=== PATIENT | female | born 1995 | race Caucasian/White ===

== ENCOUNTER 2019-04-21 10:52 | Inpatient (IN) | payer BC ==
[2019-04-21] MEDS ORDERED: Ondansetron 4 MG/2 ML SDV IVPUSH PRN ×2 (11:22→12:31)
[2019-04-21] MEDS ORDERED: Sodium Chloride 0.9% 10 ML Syringe FLUSH PRN (11:22)
[2019-04-21] MEDS ORDERED: Nalbuphine 10 MG/ML Syringe IVPUSH PRN (11:22)
--- NOTE | 2019-04-21 11:24 | PCM.LDHP ---
L&D History of Present Illness - General Date of Service: 04/21/19 Admit Problem/Dx: Patient Status Order with Admit Dx/Problem 04/21/19 11:22 Patient Status [ADT] Routine Admission Diagnosis/Problem Admission Diagnosis/Problem Normal labor Source of Information: Patient History Limitations: Reports: No Limitations - History of Present Illness Introduction:: Patient is a 23 y/o at 38 5/7 wks who presents for labor / SROM. Thinks maybe started leaking around 0900 this AM. Contractions very intense. No other concerns - Related Data Allergies/Adverse Reactions: Allergies Allergy/AdvReac Type Severity Reaction Status Date / Time No Known Allergies Allergy Verified 04/02/19 16:37 Home Medications: Home Meds No122/Iron/Folic Acid [ Multi Tablet] 1 each PO DAILY 04/02/19 [History] Past Medical History Genitourinary History: Reports: Renal Calculus [employer]NER History: Reports: : 1 Para: 0 LMP (Approximate): - Past Surgical History Musculoskeletal Surgical History: Reports: Other (See Below) (knee surgery) Social & Family History - Tobacco Use Smoking Status *Q: Never Smoker - Alcohol Use Alcohol Use History: No - Recreational Drug Use Recreational Drug Use: No H&P Review of Systems - Review of Systems: Review Of Systems: See Below General: Reports: No Symptoms Pulmonary: Reports: No Symptoms Cardiovascular: Reports: No Symptoms Gastrointestinal: Reports: Abdominal Pain (contractions ) Genitourinary: Reports: No Symptoms Musculoskeletal: Reports: No Symptoms Psychiatric: Reports: No Symptoms Neurological: Reports: No Symptoms L&D Exam - Exam Exam: See Below - OB Specific Contraction Intensity: Moderate to Strong Movement: Active Heart Tones: Present Heart Tones per Min: 135 Heart Rate (FHR) Variability: Moderate (6-25 bmp) Presentation: Vertex - Murphy Score Murphy Score Cervix Position: Anterior Murphy Score Consistency: Soft Murphy Score Effacement: >80% Murphy Score Dilation: > 5 cm Murphy Score Infant's Station: -1 ,0 Muprhy Score Total: 12 - Exam General: Alert, Oriented, Cooperative Lungs: Clear to Auscultation, Normal Respiratory Effort Cardiovascular: Regular Rate, Regular Rhythm GI/Abdominal Exam: Soft, Non-Tender Genitourinary: Normal external exam Extremities: Normal Inspection Skin: Warm, Dry, Intact - Patient Data Result Diagrams: 04/21/19 11:37 - Problem List (1) 38 weeks gestation of SNOMED Code(s): 39553202 ICD Code: Z3A.38 - 38 WEEKS GESTATION OF Status: Acute Current Visit: Yes (2) Normal labor SNOMED Code(s): 80802818 ICD Code: O80 - ENCOUNTER FOR FULL-TERM UNCOMPLICATED DELIVERY; Z37.9 - OUTCOME OF DELIVERY, UNSPECIFIED Status: Acute Current Visit: Yes Problem List Initiated/Reviewed/Updated: Yes Orders Last 24hrs: Active Orders 24 hr Category Date Time Status Patient Status [ADT] Routine ADT 04/21/19 11:22 Ordered Activity as Tolerated [RC] PFP Care 04/21/19 11:22 Ordered Communication Order [RC] ASDIRECTED Care 04/21/19 11:22 Ordered Heart Tones [RC] ASDIRECTED Care 04/21/19 11:22 Ordered Non Stress Test [RC] PER UNIT ROUTINE Care 04/21/19 11:22 Ordered Notify Provider [RC] PFP Care 04/21/19 11:22 Ordered Notify Provider [RC] PRN Care 04/21/19 11:22 Ordered Peripheral IV Care [RC] . DIRECTED Care 04/21/19 11:22 Ordered Vital Signs [RC] PER UNIT ROUTINE Care 04/21/19 11:22 Ordered CBC W/O DIFF,HEMOGRAM [HEME] Stat Lab 04/21/19 11:22 Ordered RAPID PLASMA REAGIN,RPR [CHEM] Routine Lab 04/21/19 11:22 Ordered TYPE AND SCREEN [BBK] Stat Lab 04/21/19 11:22 Ordered Lactated Ringers [Ringers, Lactated] 1,000 ml Med 04/21/19 11:30 Ordered IV ASDIRECTED Nalbuphine [Nubain] Med 04/21/19 11:22 Ordered 10 mg IVPUSH Q2H PRN Ondansetron [Zofran] Med 04/21/19 11:22 Ordered 4 mg IVPUSH Q4H PRN Oxytocin/Lactated Ringers [Pitocin in LR 10 Units/1,000 Med 04/21/19 11:30 Ordered ML] 10 unit in 1,000 ml IV .CONTINUOUS Sodium Chloride 0.9% [Saline Flush] Med 04/21/19 11:22 Ordered 10 ml FLUSH ASDIRECTED PRN Electronic Heart Tones Ext w TOCO [WOMSER] Oth 04/21/19 11:22 Ordered Routine Electronic Heart Tones Internal [WOMSER] Per Unit Ot 04/21/19 11:22 Ordered Routine Peripheral IV Insertion Adult [OM.PC] Routine Oth 04/21/19 11:22 Ordered Resuscitation Status Routine Resus Stat 04/21/19 11:22 Ordered Assessment/Plan Comment:: * Labs to be done * GBS negative * Pain management per patient preference * Anticipate
[2019-04-21] MEDS ORDERED: Oxytocin/Lactated Ringers 10 UNIT/1,000 ML BAG IV SCH (11:30)
[2019-04-21] MEDS: Lactated Ringers 1,000 ML IV SCH ×3 (11:36→15:28)
[2019-04-21] MEDS ORDERED: Lidocaine 1.5% with EPINEPHrine 1:200,000 5 ML Amp ONE (12:00)
[2019-04-21] MEDS ORDERED: Bupivacaine 0.25% 10 ML SDV ONE (12:00)
[2019-04-21] MEDS ORDERED: fentaNYL/Bupivacaine/NS 2 MCG-0.125% 250 ML EPIDUR PRN (12:31)
[2019-04-21] MEDS ORDERED: ePHEDrine 50 MG/ML SDV IVPUSH PRN (12:31)
[2019-04-21] MEDS ORDERED: fentaNYL 100 MCG/2 ML SDV EPIDUR PRN (12:31)
[2019-04-21] MEDS ORDERED: diphenhydrAMINE 50 MG/ML SDV IVPUSH PRN (12:31)
--- NOTE | 2019-04-21 12:38 | PCM.PREANE ---
Preanesthetic Assessment - Procedure Proposed Procedure: CESAR - Anesthesia/Transfusion/Family Hx Anesthesia History: Prior Anesthesia Without Reaction Family History of Anesthesia Reaction: No Transfusion History: No Prior Transfusion(s) Intubation History: Unknown - Review of Systems General: No Symptoms (has nasal congestion/cold ) Cardiovascular: No Symptoms Gastrointestinal: No Symptoms Neurological: No Symptoms Other: Reports: None - Physical Assessment NPO Status Date: 04/21/19 NPO Status Time: 12:35 Vital Signs: Last Vital Signs Temp 36.6 C 04/21/19 11:22 Pulse 84 04/21/19 11:22 Resp 16 04/21/19 11:22 BP 124/93 H 04/21/19 11:22 Pulse Ox 100 04/21/19 11:22 Height: 1.73 m Weight: 100.924 kg ASA Class: 2 Mental Status: Alert & Oriented x3 Airway Class: Mallampati = 2 Dentition: Reports: Normal Dentition Thyro-Mental Finger Breadths: 3 Mouth Opening Finger Breadths: 4 ROM/Head Extension: Full Lungs: Clear to Auscultation, Normal Respiratory Effort Cardiovascular: Regular Rate, Regular Rhythm - Lab Values: Laboratory Last Values WBC 11.79 K/mm3 (3.98-10.04) H 04/21/19 11:37 RBC 4.68 M/mm3 (3.98-5.22) 04/21/19 11:37 Hgb 12.5 gm/dl (11.2-15.7) 04/21/19 11:37 Hct 37.8 % (34.1-44.9) 04/21/19 11:37 MCV 80.8 fl (79.4-94.8) 04/21/19 11:37 MCH 26.7 pg (25.6-32.2) 04/21/19 11:37 MCHC 33.1 g/dl (32.2-35.5) 04/21/19 11:37 RDW Std Deviation 41.4 fL (36.4-46.3) 04/21/19 11:37 Plt Count 271 K/mm3 (182-369) 04/21/19 11:37 MPV 11.3 fl (9.4-12.3) 04/21/19 11:37 - Allergies Allergies/Adverse Reactions: Allergies Allergy/AdvReac Type Severity Reaction Status Date / Time No Known Allergies Allergy Verified 04/02/19 16:37 - Blood Blood Available: No - Anesthesia Plan Pre-Op Medication Ordered: None - Acknowledgements Anesthesia Type Planned: Epidural Pt an Appropriate Candidate for the Planned Anesthesia: Yes Alternatives and Risks of Anesthesia Discussed w Pt/Guardian: Yes Pt/Guardian Understands and Agrees with Anesthesia Plan: Yes PreAnesthesia Questionnaire [employer] History: Reports: - SUBSTANCE USE Smoking Status *Q: Never Smoker Second Hand Smoke Exposure: No Recreational Drug Use History: No - HOME MEDS Home Medications: Home Meds No122/Iron/Folic Acid [ Multi Tablet] 1 each PO DAILY 04/02/19 [History] - CURRENT (IN HOUSE) MEDS Current Meds: Current Medications Diphenhydramine HCl (Benadryl) 25 mg IVPUSH Q6H PRN PRN Reason: pruritis Ephedrine Sulfate (Ephedrine Sulfate) 5 mg IVPUSH ASDIRECTED PRN PRN Reason: Hypotension Fentanyl (Sublimaze) 100 mcg EPIDUR Q3H PRN PRN Reason: Pain Fentanyl/Bupivacaine HCl (Fentanyl/Bupivacaine/Ns 2 Mcg-0.125% 250 Ml) ml EPIDUR CONTINUOUS PRN PRN Reason: Pain Lactated Ringer's (Ringers, Lactated) 1,000 mls @ 100 mls/hr IV ASDIRECTED SIMIN Last Admin: 04/21/19 11:36 Dose: 100 mls/hr Oxytocin/Lactated Ringer's (Pitocin In Lr 10 Units/1,000 Ml) 10 unit in 1,000 mls @ 500 mls/hr IV .CONTINUOUS SIMIN Nalbuphine HCl (Nubain) 10 mg IVPUSH Q2H PRN PRN Reason: Pain Ondansetron HCl (Zofran) 4 mg IVPUSH Q4H PRN PRN Reason: Nausea/Vomiting Ondansetron HCl (Zofran) 4 mg IVPUSH ONETIME PRN PRN Reason: Nausea/Vomiting Sodium Chloride (Saline Flush) 10 ml FLUSH ASDIRECTED PRN PRN Reason: Keep Vein Open
--- NOTE | 2019-04-21 13:51 | PCM.PNLD ---
Labor Progress Note - VS & Meds Vital Signs: Last Vital Signs Temp 36.6 C 04/21/19 11:22 Pulse 84 04/21/19 11:22 Resp 16 04/21/19 11:22 BP 124/93 H 04/21/19 11:22 Pulse Ox 100 04/21/19 11:22 Active Medications: Current Medications Diphenhydramine HCl (Benadryl) 25 mg IVPUSH Q6H PRN PRN Reason: pruritis Ephedrine Sulfate (Ephedrine Sulfate) 5 mg IVPUSH ASDIRECTED PRN PRN Reason: Hypotension Fentanyl (Sublimaze) 100 mcg EPIDUR Q3H PRN PRN Reason: Pain Fentanyl/Bupivacaine HCl (Fentanyl/Bupivacaine/Ns 2 Mcg-0.125% 250 Ml) 250 ml EPIDUR CONTINUOUS PRN PRN Reason: Pain Lactated Ringer's (Ringers, Lactated) 1,000 mls @ 100 mls/hr IV ASDIRECTED SIMIN Last Admin: 04/21/19 13:12 Dose: 999 mls/hr Oxytocin/Lactated Ringer's (Pitocin In Lr 10 Units/1,000 Ml) 10 unit in 1,000 mls @ 500 mls/hr IV .CONTINUOUS SIMIN Nalbuphine HCl (Nubain) 10 mg IVPUSH Q2H PRN PRN Reason: Pain Ondansetron HCl (Zofran) 4 mg IVPUSH Q4H PRN PRN Reason: Nausea/Vomiting Ondansetron HCl (Zofran) 4 mg IVPUSH ONETIME PRN PRN Reason: Nausea/Vomiting Sodium Chloride (Saline Flush) 10 ml FLUSH ASDIRECTED PRN PRN Reason: Keep Vein Open - Uterine Contractions Uterine Monitoring Mode: External [place] Contraction Intensity: Moderate to Strong - Monitoring Monitor Mode: External Ultrasound Heart Rate (FHR) Baseline: 125 Heart Rate (FHR) Variability: Moderate (6-25 bmp) Accelerations: Present, 15x15 Decelerations: None Strip Review: Category I - Vaginal Exam Dilation (cm): 5 Effacement (Percent): 100 Station: 0 Cervical Position: Anterior - Labor Progress (Free Text) Labor Progress: Patient now comfortable with epidural. Forebag felt on exam. AROM done of this with release of meconium stained fluid. Continue present management
[2019-04-21] MEDS ORDERED: Misoprostol 200 MCG Tab PO STA (19:02)
--- NOTE | 2019-04-21 19:02 | PCM.DEL ---
L & D Note - General Info Date of Service: 04/21/19 - Delivery Note Labor: Spontaneous Delivery Outcome: Livebirth Delivery Method: Spontaneous Vaginal Delivery-Single Delivery Mode: Spontaneous Presentation: Right Occiput Anterior ([place]IS) Nuchal Cord: None Anesthesia Type: Epidural Amniotic Fluid Description: Clear Episiotomy Type: None Laceration: 2nd Degree, Perineal Suture type: Vicryl Suture size: 2-0 Placenta: Intact, Spontaneous Cord: 3 Vessels Estimated Blood Loss: 400 Resuscitation Needed: Yes : Bulb Syringe, Stimulated, Warmed, [place] Used, Warmer Used Delivery Comments (Free Text/Narrative):: Patient found to be complete and began pushing. With maternal pushing effort head delivered from [place]IS presentation. No nuchal cord present. With gentle downward traction the shoulders and body delivered. placed on maternal abdomen. True knot noted in cord. Cord clamped and cut. Cord blood obtained. Placenta allowed time to separate and expelled intact. Poor JYOTSNA tone noted and patient given 600 mcg of buccal cytotec with good response. 2nd degree perineal laceration noted which was repaired with a 2-0 vicryl in the typical fashion - General Info Date of Service: 04/21/19 - Patient Data Vitals - Most Recent: Last Vital Signs Temp 36.6 C 04/21/19 11:22 Pulse 84 04/21/19 11:22 Resp 16 04/21/19 11:22 BP 124/93 H 04/21/19 11:22 Pulse Ox 100 04/21/19 11:22 Weight - Most Recent: 100.924 kg Lab Results Last 24 Hours: 23 y/o now PPD#0 from * Routine cares * Breast feeding * Discharge home in 2 days - Problem List & Annotations (1) 38 weeks gestation of SNOMED Code(s): 20752224 Code(s): Z3A.38 - 38 WEEKS GESTATION OF Status: Acute Current Visit: Yes (2) Normal labor SNOMED Code(s): 62323811 Code(s): O80 - ENCOUNTER FOR FULL-TERM UNCOMPLICATED DELIVERY; Z37.9 - OUTCOME OF DELIVERY, UNSPECIFIED Status: Acute Current Visit: Yes (3) Vaginal delivery SNOMED Code(s): 995369251 Code(s): O80 - ENCOUNTER FOR FULL-TERM UNCOMPLICATED DELIVERY Status: Acute Current Visit: Yes - Problem List Review Problem List Initiated/Reviewed/Updated: Yes - My Orders Last 24 Hours: My Active Orders 04/21/19 11:22 Patient Status [ADT] Routine Activity as Tolerated [RC] PFP Communication Order [RC] ASDIRECTED Heart Tones [RC] ASDIRECTED Non Stress Test [RC] PER UNIT ROUTINE Notify Provider [RC] PFP Notify Provider [RC] PRN Peripheral IV Care [RC] . DIRECTED Vital Signs [RC] PER UNIT ROUTINE Nalbuphine [Nubain] 10 mg IVPUSH Q2H PRN Ondansetron [Zofran] 4 mg IVPUSH Q4H PRN Sodium Chloride 0.9% [Saline Flush] 10 ml FLUSH ASDIRECTED PRN Electronic Heart Tones Ext w TOCO [WOMSER] Routine Electronic Heart Tones Internal [WOMSER] Per Unit Routine Peripheral IV Insertion Adult [OM.PC] Routine Resuscitation Status Routine 04/21/19 11:30 Lactated Ringers [Ringers, Lactated] 1,000 ml IV ASDIRECTED Oxytocin/Lactated Ringers [Pitocin in LR 10 Units/1,000 ML] 10 unit in 1,000 ml IV .CONTINUOUS 04/21/19 11:37 RAPID PLASMA REAGIN,RPR [CHEM] Routine 04/21/19 12:51 PATIENT RETYPE [BBK] Routine 04/21/19 19:02 miSOPROStoL [Cytotec] 600 mcg PO NOW STA 04/21/19 Lunch Regular Diet [DIET] - Plan Plan:: * Labs to be done * GBS negative * Pain management per patient preference * Anticipate
[2019-04-21] MEDS ORDERED: Ibuprofen 600 MG Tab PO PRN (19:26)
[2019-04-21] MEDS ORDERED: Docusate Sodium 100 MG Cap PO PRN (19:26)
[2019-04-21] MEDS ORDERED: Benzocaine/Menthol 20%-0.5% Spray 56 GM Canister TOP PRN (19:26)
[2019-04-21] MEDS ORDERED: Acetaminophen 325 MG Tab PO PRN (19:26)
[2019-04-21] MEDS: Witch Hazel Medicated Pads 40/Jar TOP PRN (20:28)
--- NOTE | 2019-04-22 08:51 | PCM.SN ---
- Free Text/Narrative Note: Afebrile, no heavy vaginal bleeding, uterus involuting normally, no leg cramping.
[2019-04-22] MEDS: Witch Hazel Medicated Pads 40/Jar TOP PRN (16:45)
--- NOTE | 2019-04-22 17:10 | PCM48HPAN ---
Post Anesthesia Note - EVALUATION WITHIN 48HRS OF ANESTHETIC Vital Signs in Normal Range: Yes Patient Participated in Evaluation: Yes Respiratory Function Stable: Yes Airway Patent: Yes Cardiovascular Function Stable: Yes Hydration Status Stable: Yes Pain Control Satisfactory: Yes (Mild lower back discomfort. Counseled to apply ice 20 minutes PRN) Nausea and Vomiting Control Satisfactory: Yes Mental Status Recovered: Yes Vital Signs: Last Vital Signs Temp 36.6 C 04/22/19 03:00 Pulse 84 04/22/19 09:00 Resp 16 04/22/19 09:00 BP 104/60 04/22/19 09:00 Pulse Ox 98 04/22/19 09:00 - COMMENTS/OBSERVATIONS Free Text/Narrative:: Mild lower back pain. Counseled to use ice 20 minutes on PRN and ibuprofen if tolerated. No concerns at this time.
--- NOTE | 2019-04-23 10:17 | PCM.DCSUM1 ---
Discharge Summary - Hospital Course Free Text/Narrative:: [facility] LIVE L/D Delivery Note Patient Name: GRACE VELASQUEZ Date of : 89 Patient Status: Inpatient Attending Provider: Kayley Ramos Date: 04/21/19 19:02 Initialization Date: 04/21/19 19:02 L & D Note - General Info Date of Service: 04/21/19 - Delivery Note Labor: Spontaneous Delivery Outcome: Livebirth Delivery Method: Spontaneous Vaginal Delivery-Single Delivery Mode: Spontaneous Presentation: Right Occiput Anterior (LOUIS) Nuchal Cord: None Anesthesia Type: Epidural Amniotic Fluid Description: Clear Episiotomy Type: None Laceration: 2nd Degree, Perineal Suture type: Vicryl Suture size: 2-0 Placenta: Intact, Spontaneous Cord: 3 Vessels Estimated Blood Loss: 400 Resuscitation Needed: Yes [place]: Bulb Syringe, Stimulated, Warmed, Nora Used, Warmer Used Delivery Comments (Free Text/Narrative):: Patient found to be complete and began pushing. With maternal pushing effort head delivered from LOUIS presentation. No nuchal cord present. With gentle downward traction the shoulders and body delivered. Infant placed on maternal abdomen. True knot noted in cord. Cord clamped and cut. Cord blood obtained. Placenta allowed time to separate and expelled intact. Poor JYOTSNA tone noted and patient given 600 mcg of buccal cytotec with good response. 2nd degree perineal laceration noted which was repaired with a 2-0 vicryl in the typical fashion - General Info Date of Service: 04/21/19 - Patient Data Vitals - Most Recent: Last Vital Signs Temp 36.6 C 04/21/19 11:22 Pulse 84 04/21/19 11:22 Resp 16 04/21/19 11:22 BP 124/93 H 04/21/19 11:22 Pulse Ox 100 04/21/19 11:22 Weight - Most Recent: 100.924 kg Lab Results Last 24 Hours: 23 y/o now PPD#0 from * Routine cares * Breast feeding * Discharge home in 2 days - Problem List & Annotations (1) 38 weeks gestation of SNOMED Code(s): 54340448 Code(s): Z3A.38 - 38 WEEKS GESTATION OF Status: Acute Current Visit: Yes (2) Normal labor SNOMED Code(s): 21064020 Code(s): O80 - ENCOUNTER FOR FULL-TERM UNCOMPLICATED DELIVERY; Z37.9 - OUTCOME OF DELIVERY, UNSPECIFIED Status: Acute Current Visit: Yes (3) Vaginal delivery SNOMED Code(s): 022132196 Code(s): O80 - ENCOUNTER FOR FULL-TERM UNCOMPLICATED DELIVERY Status: Acute Current Visit: Yes - Problem List Review Problem List Initiated/Reviewed/Updated: Yes - My Orders Last 24 Hours: My Active Orders 04/21/19 11:22 Patient Status [ADT] Routine Activity as Tolerated [RC] PFP Communication Order [RC] ASDIRECTED Heart Tones [RC] ASDIRECTED Non Stress Test [RC] PER UNIT ROUTINE Notify Provider [RC] PFP Notify Provider [RC] PRN Peripheral IV Care [RC] . DIRECTED Vital Signs [RC] PER UNIT ROUTINE Nalbuphine [Nubain] 10 mg IVPUSH Q2H PRN Ondansetron [Zofran] 4 mg IVPUSH Q4H PRN Sodium Chloride 0.9% [Saline Flush] 10 ml FLUSH ASDIRECTED PRN Electronic Heart Tones Ext w TOCO [WOMSER] Routine Electronic Heart Tones Internal [WOMSER] Per Unit Routine Peripheral IV Insertion Adult [OM.PC] Routine Resuscitation Status Routine 04/21/19 11:30 Lactated Ringers [Ringers, Lactated] 1,000 ml IV ASDIRECTED Oxytocin/Lactated Ringers [Pitocin in LR 10 Units/1,000 ML] 10 unit in 1,000 ml IV .CONTINUOUS 04/21/19 11:37 RAPID PLASMA REAGIN,RPR [CHEM] Routine 04/21/19 12:51 PATIENT RETYPE [BBK] Routine 04/21/19 19:02 miSOPROStoL [Cytotec] 600 mcg PO NOW STA 04/21/19 Lunch Regular Diet [DIET] - Plan Plan:: * Labs to be done * GBS negative * Pain management per patient preference * Anticipate HPI Initial Comments: [facility] LIVE L/D Delivery Note Patient Name: GRACE VELASQUEZ Date of : [birth year] Patient Status: Inpatient Attending Provider: Kayley Ramos Date: 04/21/19 19:02 Initialization Date: 04/21/19 19:02 L & D Note - General Info Date of Service: 04/21/19 - Delivery Note Labor: Spontaneous Delivery Outcome: Livebirth Infant Delivery Method: Spontaneous Vaginal Delivery-Single Infant Delivery Mode: Spontaneous Presentation: Right Occiput Anterior (LOUIS) Nuchal Cord: None Anesthesia Type: Epidural Amniotic Fluid Description: Clear Episiotomy Type: None Laceration: 2nd Degree, Perineal Suture type: Vicryl Suture size: 2-0 Placenta: Intact, Spontaneous Cord: 3 Vessels Estimated Blood Loss: 400 Resuscitation Needed: Yes : Bulb Syringe, Stimulated, Warmed, Nora Used, Warmer Used Delivery Comments (Free Text/Narrative):: Patient found to be complete and began pushing. With maternal pushing effort head delivered from LOUIS presentation. No nuchal cord present. With gentle downward traction the shoulders and body delivered. placed on maternal abdomen. True knot noted in cord. Cord clamped and cut. Cord blood obtained. Placenta allowed time to separate and expelled intact. Poor JYOTSNA tone noted and patient given 600 mcg of buccal cytotec with good response. 2nd degree perineal laceration noted which was repaired with a 2-0 vicryl in the typical fashion - General Info Date of Service: 04/21/19 - Patient Data Vitals - Most Recent: Last Vital Signs Temp 36.6 C 04/21/19 11:22 Pulse 84 04/21/19 11:22 Resp 16 04/21/19 11:22 BP 124/93 H 04/21/19 11:22 Pulse Ox 100 04/21/19 11:22 Weight - Most Recent: 100.924 kg Lab Results Last 24 Hours: 23 y/o now PPD#0 from * Routine cares * Breast feeding * Discharge home in 2 days - Problem List & Annotations (1) 38 weeks gestation of SNOMED Code(s): 65845645 Code(s): Z3A.38 - 38 WEEKS GESTATION OF Status: Acute Current Visit: Yes (2) Normal labor SNOMED Code(s): 95052972 Code(s): O80 - ENCOUNTER FOR FULL-TERM UNCOMPLICATED DELIVERY; Z37.9 - OUTCOME OF DELIVERY, UNSPECIFIED Status: Acute Current Visit: Yes (3) Vaginal delivery SNOMED Code(s): 301329779 Code(s): O80 - ENCOUNTER FOR FULL-TERM UNCOMPLICATED DELIVERY Status: Acute Current Visit: Yes - Problem List Review Problem List Initiated/Reviewed/Updated: Yes - My Orders Last 24 Hours: My Active Orders 04/21/19 11:22 Patient Status [ADT] Routine Activity as Tolerated [RC] PFP Communication Order [RC] ASDIRECTED Heart Tones [RC] ASDIRECTED Non Stress Test [RC] PER UNIT ROUTINE Notify Provider [RC] PFP Notify Provider [RC] PRN Peripheral IV Care [RC] . DIRECTED Vital Signs [RC] PER UNIT ROUTINE Nalbuphine [Nubain] 10 mg IVPUSH Q2H PRN Ondansetron [Zofran] 4 mg IVPUSH Q4H PRN Sodium Chloride 0.9% [Saline Flush] 10 ml FLUSH ASDIRECTED PRN Electronic Heart Tones Ext w TOCO [WOMSER] Routine Electronic Heart Tones Internal [WOMSER] Per Unit Routine Peripheral IV Insertion Adult [OM.PC] Routine Resuscitation Status Routine 04/21/19 11:30 Lactated Ringers [Ringers, Lactated] 1,000 ml IV ASDIRECTED Oxytocin/Lactated Ringers [Pitocin in LR 10 Units/1,000 ML] 10 unit in 1,000 ml IV .CONTINUOUS 04/21/19 11:37 RAPID PLASMA REAGIN,RPR [CHEM] Routine 04/21/19 12:51 PATIENT RETYPE [BBK] Routine 04/21/19 19:02 miSOPROStoL [Cytotec] 600 mcg PO NOW STA 04/21/19 Lunch Regular Diet [DIET] - Plan Plan:: * Labs to be done * GBS negative * Pain management per patient preference * Anticipate Brief History: [facility] LIVE . L/D Delivery Note. [facility]: [id number] Date of : Patient Status: Inpatient. Attending Provider: Kayley Ramosunt Number : [id number]. Date: 04/21/19 19:02Initialization Date: 04/21/19 19:02. L & D Note. - General Info. Date of Service: 04/21/19. - Delivery Note. Labor: Spontaneous. Delivery Outcome: Livebirth. Delivery Method: Spontaneous Vaginal Delivery-Single. Infant Delivery Mode: Spontaneous. Presentation : Right Occiput Anterior (LOUIS). Nuchal Cord: None. Anesthesia Type: Epidural. Amniotic Fluid Description: Clear. Episiotomy Type: None. Laceration: 2nd Degree, Perineal. Suture type: Vicryl. Suture size: 2-0. Placenta: Intact, Spontaneous. Cord: 3 Vessels. Estimated Blood Loss: 400. Resuscitation Needed : Yes. [place]: Bulb Syringe, Stimulated, Warmed, Nora Used, Warmer Used. Delivery Comments (Free Text/Narrative):: Patient found to be complete and began pushing. With maternal pushing effort head delivered from LOUIS presentation. No nuchal cord present. With gentle downward traction the shoulders and body delivered. placed on maternal abdomen. True knot noted in cord. Cord clamped and cut. Cord blood obtained. Placenta allowed time to separate and expelled intact. Poor JYOT[place]NA tone noted and patient given 600 mcg of buccal cytotec with good response. 2nd degree perineal laceration noted which was repaired with a 2-0 vicryl in the typical fashion. - General Info. Date of Service: 04/21/19. - Patient Data. Vitals - Most Recent: Last Vital Signs. Temp 36.6 C 04/21/19 11:22. Pulse 84 04/21/19 11:22. Resp 16 04/21/19 11:22. BP 124/93 H 04/21/19 11:22. Pulse Ox 100 04/21/19 11:22. Weight - Most Recent: 100.924 kg. Lab Results Last 24 Hours: 23 y/o now PPD#0 from . Routine cares. Breast feeding. Discharge home in 2 days. - Problem List & Annotations. (1) 38 weeks gestation of . SNOMED Code(s): 43242367. Code(s): Z3A.38 - 38 WEEKS GESTATION OF Status: Acute Current Visit: Yes. (2) Normal labor. SNOMED Code(s): 38108062. Code(s): O80 - ENCOUNTER FOR FULL-TERM UNCOMPLICATED DELIVERY; Z37.9 - OUTCOME OF DELIVERY, UNSPECIFIED Status: Acute Current Visit: Yes. (3) Vaginal delivery. SNOMED Code(s): 665237412. Code(s): O80 - ENCOUNTER FOR FULL -TERM UNCOMPLICATED DELIVERY Status: Acute Current Visit: Yes. - Problem List Review. Problem List Initiated/Reviewed/Updated: Yes. - My Orders. Last 24 Hours: My Active Orders. 04/21/19 11:22. Patient Status [ADT] Routine. Activity as Tolerated [RC] PFP. Communication Order [RC] ASDIRECTED. Heart Tones [RC] ASDIRECTED. Non Stress Test [RC] PER UNIT ROUTINE. Notify Provider [RC] PFP. Notify Provider [RC] PRN. Peripheral IV Care [RC] . DIRECTED. Vital Signs [RC] PER UNIT ROUTINE. Nalbuphine [Nubain] 10 mg IVPUSH Q2H PRN. Ondansetron [Zofran] 4 mg IVPUSH Q4H PRN. Sodium Chloride 0.9% [Saline Flush] 10 ml FLUSH ASDIRECTED PRN. Electronic Heart Tones Ext w TOCO [WOMSER] Routine. Electronic Heart Tones Internal [WOMSER] Per Unit Routine. Peripheral IV Insertion Adult [OM.PC] Routine. Resuscitation Status Routine. 04/21/19 11:30. Lactated Ringers [Ringers, Lactated] 1,000 ml IV ASDIRECTED. Oxytocin/Lactated Ringers [Pitocin in LR 10 Units/1,000 ML] 10 unit in 1,000 ml IV .CONTINUOUS. 04/21/19 11:37. RAPID PLASMA REAGIN,RPR [CHEM] Routine. 04/21/19 12:51. PATIENT RETYPE [BBK] Routine. 04/21/19 19:02. miSOPROStoL [Cytotec] 600 mcg PO NOW STA. Lunch. Regular Diet [DIET]. - Plan. Plan:: Labs to be done. GBS negative. Pain management per patient preference. Anticipate Diagnosis: Stroke: No - Discharge Data Discharge Date: 04/23/19 Discharge Disposition: Home, Self-Care 01 Condition: Good - Referral to Home Health Primary Care Physician: Kayley Ramos MD - Discharge Diagnosis/Problem(s) (1) Second degree laceration of perineum, delivered, current hospitalization SNOMED Code(s): 924219735, 981061140 ICD Code: O70.1 - SECOND DEGREE PERINEAL LACERATION DURING DELIVERY Status : Acute Current Visit: Yes (2) 38 weeks gestation of SNOMED Code(s): 02036081 ICD Code: Z3A.38 - 38 WEEKS GESTATION OF Status: Acute Current Visit: Yes (3) Vaginal delivery SNOMED Code(s): 687588820 ICD Code: O80 - ENCOUNTER FOR FULL-TERM UNCOMPLICATED DELIVERY Status: Acute Current Visit: Yes - Patient Instructions Diet: Usual Diet as Tolerated Driving: Do Not Drive (48 hours) Showering/Bathing: May Shower Notify Provider of: Fever, Increased Pain, Swelling and Redness, Drainage, Nausea and/or Vomiting - Discharge Plan *PRESCRIPTION DRUG MONITORING PROGRAM REVIEWED*: Not Applicable *COPY OF PRESCRIPTION DRUG MONITORING REPORT IN PATIENT TASIA: Not Applicable Home Medications: Home Meds No122/Iron/Folic Acid [ Multi Tablet] 1 each PO DAILY 04/02/19 [History] Acetaminophen [Tylenol] 650 mg PO Q6H PRN tablet 04/23/19 [Rx] Benzocaine/Menthol [Dermoplast Pain Relief [place]] 1 spray TOP ASDIRECTED PRN canister 04/23/19 [Rx] Docusate Sodium [Colace] 100 mg PO BID PRN cap 04/23/19 [Rx] Ibuprofen [Motrin] 600 mg PO Q6H PRN tablet 04/23/19 [Rx] Witch Radha [Tucks] 1 pad TOP ASDIRECTED PRN pad 04/23/19 [Rx] Referrals: Kayley Ramos MD [Primary Care Provider] - (Patient will call Wednesday04/24/19 to make an appointment to see Dr. Ramos ) - Discharge Summary/Plan Comment DC Time >30 min.: No - Patient Data Vitals - Most Recent: Last Vital Signs Temp 97.8 F 04/23/19 08:54 Pulse 88 04/23/19 08:54 Resp 14 04/23/19 08:54 BP 112/55 L 04/23/19 08:54 Pulse Ox 97 04/23/19 08:54 Weight - Most Recent: 222 lb 8 oz Med Orders - Current: Current Medications Acetaminophen (Tylenol) 650 mg PO Q4H PRN PRN Reason: mild pain or fever Last Admin: 04/22/19 20:45 Dose: 650 mg Benzocaine/Menthol (Dermoplast Pain Relief [place]) 0 gm TOP ASDIRECTED PRN PRN Reason: Perineal Comfort Measure Last Admin: 04/21/19 20:28 Dose: 1 applic Docusate Sodium (Colace) 100 mg PO BID PRN PRN Reason: Constipation Ibuprofen (Motrin) 600 mg PO Q6H PRN PRN Reason: Mild pain or fever Last Admin: 04/21/19 20:29 Dose: 600 mg Witch Radha (Tucks) 1 pad TOP ASDIRECTED PRN PRN Reason: Perineal Comfort Measure Last Admin: 04/22/19 16:45 Dose: 1 applic Discontinued Medications Bupivacaine HCl (Sensorcaine-Mpf 0.25%) 10 ml .ROUTE .STK-MED ONE Stop: 04/21/19 12:01 Diphenhydramine HCl (Benadryl) 25 mg IVPUSH Q6H PRN PRN Reason: pruritis Ephedrine Sulfate (Ephedrine Sulfate) 5 mg IVPUSH ASDIRECTED PRN PRN Reason: Hypotension Fentanyl (Sublimaze) 100 mcg EPIDUR Q3H PRN PRN Reason: Pain Last Admin: 04/21/19 13:34 Dose: 100 mcg Fentanyl/Bupivacaine HCl (Fentanyl/Bupivacaine/Ns 2 Mcg-0.125% 250 Ml) 250 ml EPIDUR CONTINUOUS PRN PRN Reason: Pain Last Admin: 04/21/19 13:32 Dose: 250 ml Lactated Ringer's (Ringers, Lactated) 1,000 mls @ 100 mls/hr IV ASDIRECTED SIMIN Last Admin: 04/21/19 15:28 Dose: 100 mls/hr Oxytocin/Lactated Ringer's (Pitocin In Lr 10 Units/1,000 Ml) 10 unit in 1,000 mls @ 500 mls/hr IV .CONTINUOUS SIMIN Last Admin: 04/21/19 18:43 Dose: 500 mls/hr Lidocaine/Epinephrine (Xylocaine-Mpf 1.5% W/Epinephrine 1:200,000) 5 ml .ROUTE .STK-MED ONE Stop: 04/21/19 12:01 Misoprostol (Cytotec) 600 mcg PO NOW STA Stop: 04/21/19 19:03 Last Admin: 04/21/19 18:50 Dose: 600 mcg Nalbuphine HCl (Nubain) 10 mg IVPUSH Q2H PRN PRN Reason: Pain Ondansetron HCl (Zofran) 4 mg IVPUSH Q4H PRN PRN Reason: Nausea/Vomiting Ondansetron HCl (Zofran) 4 mg IVPUSH ONETIME PRN PRN Reason: Nausea/Vomiting Sodium Chloride (Saline Flush) 10 ml FLUSH ASDIRECTED PRN PRN Reason: Keep Vein Open
== END 2019-04-23 12:27 | disposition home or self-care (01) | DRG 560 ==
LOC: JD.OBCHECK 10:52 → JD.OB 10:52 → JD.OBCHECK 11:22 → OBSVTOIN 18:42 → JD.OB 18:43
PROVIDERS: ADMIT Obstetrics & Gynecology; ATTEND Obstetrics & Gynecology
PROC: 10E0XZZ Delivery of Products of Conception, External Approach (ICD-10-PCS; principal; 2019-04-21)
PROC: 0KQM0ZZ Repair Perineum Muscle, Open Approach (ICD-10-PCS; 2019-04-21)
PROC: 3E0R3BZ Introduction of Anesthetic Agent into Spinal Canal, Percutaneous Approach (ICD-10-PCS; 2019-04-21)
PROC: 10907ZC Drainage of Amniotic Fluid, Therapeutic from Products of Conception, Via Natural or Artificial Opening (ICD-10-PCS; 2019-04-21)
DX: O77.0 Labor and delivery complicated by meconium in amniotic fluid (principal); O70.1 Second degree perineal laceration during delivery; Z3A.38 38 weeks gestation of pregnancy; Z37.0 Single live birth; Z79.899 Other long term (current) drug therapy
CPT/HCPCS: 36415; 51702; 59025; 59409; 85027; 86592; 86850; 86900; 86901; A9270-GY; J2590; J3010; J3490; J7120

== ENCOUNTER 2021-03-10 01:53 | Inpatient (IN) | payer BC, OTHER, SELFPAY ==
[~2021-03-10 01:53] MED LIST: Bupivacaine 0.25% 10 ML SDV ONE; ePHEDrine 50 MG/ML SDV ONE
[2021-03-10] MEDS ORDERED: Ondansetron 4 MG/2 ML SDV IVPUSH PRN (02:31)
[2021-03-10] MEDS ORDERED: Sodium Chloride 0.9% 10 ML Syringe FLUSH PRN (02:31)
[2021-03-10] MEDS ORDERED: Nalbuphine 10 MG/1 ML Vial IVPUSH PRN (02:31)
[2021-03-10] MEDS ORDERED: Calcium Carbonate 500 MG Tab.Chew PO PRN (02:31)
[2021-03-10] MEDS: Lactated Ringers 1,000 ML IV SCH ×2 (02:45→04:35)
[2021-03-10] MEDS ORDERED: Oxytocin/Lactated Ringers 10 UNIT/1,000 ML BAG IV SCH (02:45)
[2021-03-10] MEDS ORDERED: Bupivacaine/fentaNYL/NS 100 ML Bag EPIDUR PRN (03:12)
[2021-03-10] MEDS ORDERED: diphenhydrAMINE 50 MG/ML SDV IVPUSH PRN (03:12)
[2021-03-10] MEDS ORDERED: fentaNYL 100 MCG/2 ML SDV EPIDUR PRN (03:12)
--- NOTE | 2021-03-10 03:49 | PCM.PREANE ---
Preanesthetic Assessment - Procedure Proposed Procedure: epidural - Anesthesia/Transfusion/Family Hx Anesthesia History: Prior Anesthesia Without Reaction Family History of Anesthesia Reaction: No Transfusion History: No Prior Transfusion(s) Intubation History: Unknown - Review of Systems General: Fatigue, Malaise Pulmonary: No Symptoms Cardiovascular: No Symptoms Gastrointestinal: Abdominal Pain (labor) Neurological: No Symptoms Other: Reports: None - Physical Assessment Height: 1.73 m Weight: 115.303 kg ASA Class: 2 Mental Status: Alert & Oriented x3 Airway Class: Mallampati = 2 Dentition: Reports: Normal Dentition Thyro-Mental Finger Breadths: 3 Mouth Opening Finger Breadths: 3 ROM/Head Extension: Full Lungs: Clear to Auscultation, Normal Respiratory Effort Cardiovascular: Regular Rate, Regular Rhythm - Lab Values: Laboratory Last Values WBC 10.46 K/mm3 (3.98-10.04) H 03/10/21 02:45 RBC 4.62 M/mm3 (3.98-5.22) 03/10/21 02:45 Hgb 11.6 gm/dl (11.2-15.7) 03/10/21 02:45 Hct 36.5 % (34.1-44.9) 03/10/21 02:45 MCV 79.0 fl (79.4-94.8) L 03/10/21 02:45 MCH 25.1 pg (25.6-32.2) L 03/10/21 02:45 MCHC 31.8 g/dl (32.2-35.5) L 03/10/21 02:45 RDW Std Deviation 43.8 fL (36.4-46.3) 03/10/21 02:45 Plt Count 225 K/mm3 (182-369) 03/10/21 02:45 MPV 11.7 fl (9.4-12.3) 03/10/21 02:45 Neut % (Auto) 70.3 % (34.0-71.1) 03/10/21 02:45 Lymph % (Auto) 18.9 % (19.3-51.7) L 03/10/21 02:45 [place] % (Auto) 9.5 % (4.7-12.5) 03/10/21 02:45 Eos % (Auto) 0.8 (0.7-5.8) 03/10/21 02:45 Baso % (Auto) 0.2 % (0.1-1.2) 03/10/21 02:45 Neut # (Auto) 7.36 K/mm3 (1.56-6.13) H 03/10/21 02:45 Lymph # (Auto) 1.98 K/mm3 (1.18-3.74) 03/10/21 02:45 [place] # (Auto) 0.99 K/mm3 (0.24-0.36) H 03/10/21 02:45 Eos # (Auto) 0.08 K/mm3 (0.04-0.36) 03/10/21 02:45 Baso # (Auto) 0.02 K/mm3 (0.01-0.08) 03/10/21 02:45 - Allergies Allergies/Adverse Reactions: Allergies Allergy/AdvReac Type Severity Reaction Status Date / Time No Known Allergies Allergy Verified 03/10/21 02:20 - Anesthesia Plan Pre-Op Medication Ordered: None - Acknowledgements Anesthesia Type Planned: Epidural Pt an Appropriate Candidate for the Planned Anesthesia: Yes Alternatives and Risks of Anesthesia Discussed w Pt/Guardian: Yes Pt/Guardian Understands and Agrees with Anesthesia Plan: Yes PreAnesthesia Questionnaire Gastrointestinal History: Reports: GERD Genitourinary History: Reports: Renal Calculus 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: - Past Surgical History Musculoskeletal Surgical History: Reports: Other (See Below) (knee surgery) - HOME MEDS Home Medications: Home Meds No122/Iron/Folic Acid [ Multi Tablet] 1 each PO DAILY 04/02/19 [History] - CURRENT (IN HOUSE) MEDS Current Meds: Current Medications Calcium Carbonate/Glycine (Calcium Carbonate 500 Mg Tab.Chew) 1,000 mg PO Q2H PRN PRN Reason: Indigestion Diphenhydramine HCl (Diphenhydramine 50 Mg/Ml Sdv) 25 mg IVPUSH Q6H PRN PRN Reason: pruritis Ephedrine Sulfate (Ephedrine 50 Mg/Ml Sdv) 5 mg IVPUSH ASDIRECTED PRN PRN Reason: Hypotension Fentanyl (Fentanyl 100 Mcg/2 Ml Sdv) 100 mcg EPIDUR Q3H PRN PRN Reason: Pain Last Admin: 03/10/21 03:26 Dose: 100 mcg Documented by: Fentanyl/Bupivacaine HCl (Bupivacaine/Fentanyl/Ns 100 Ml Bag) 100 ml EPIDUR ASDIRECTED PRN PRN Reason: Pain Last Admin: 03/10/21 03:27 Dose: 100 ml Documented by: Lactated Ringer's (Ringers, Lactated) 1,000 mls @ 100 mls/hr IV ASDIRECTED SIMIN Oxytocin/Lactated Ringer's (Pitocin In Lr 10 Units/1,000 Ml) 10 unit in 1,000 mls @ 500 mls/hr IV .CONTINUOUS SIMIN Nalbuphine HCl (Nalbuphine 10 Mg/1 Ml Vial) 10 mg IVPUSH Q2H PRN PRN Reason: Pain Ondansetron HCl (Ondansetron 4 Mg/2 Ml Sdv) 4 mg IVPUSH Q4H PRN PRN Reason: Nausea/Vomiting Sodium Chloride (Sodium Chloride 0.9% 10 Ml Syringe) 10 ml FLUSH ASDIRECTED PRN PRN Reason: Keep Vein Open
[2021-03-10] MEDS: ePHEDrine 50 MG/ML SDV IVPUSH PRN ×8 (03:52→06:38)
--- NOTE | 2021-03-10 06:45 | PCM.LDHP ---
L&D History of Present Illness - General Date of Service: 03/10/21 Admit Problem/Dx: Patient Status Order with Admit Dx/Problem 03/10/21 02:02 Patient Status [ADT] Routine 03/10/21 02:31 Patient Status [ADT] Routine Admission Diagnosis/Problem Admission Diagnosis/Problem Source of Information: Patient History Limitations: Reports: No Limitations - History of Present Illness Introduction:: Patient is a 25 y/o at 39 2/7 wks who presented in early AM hours in labor. Currently doing well. 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 [employer] History: Reports: : 2 Para: 1 LMP (Approximate): - Past Surgical History Musculoskeletal Surgical History: Reports: Other (See Below) (knee surgery) Social & Family History - Family History Family Medical History: No Pertinent Family History HEENT: Reports: None - Tobacco Use Tobacco Use Status *Q: Never Tobacco User - Caffeine Use Caffeine Use: Reports: None - Alcohol Use Alcohol Use History: No - Recreational Drug Use Recreational Drug Use: No H&P Review of Systems - Review of Systems: Review Of Systems: See Below General: Reports: No Symptoms Pulmonary: Reports: No Symptoms Cardiovascular: Reports: No Symptoms Gastrointestinal: Reports: No Symptoms Genitourinary: Reports: No Symptoms Musculoskeletal: Reports: No Symptoms Psychiatric: Reports: No Symptoms Neurological: Reports: No Symptoms L&D Exam - Exam Exam: See Below - Vital Signs Weight: 115.303 kg - OB Specific Contraction Intensity: Moderate to Strong Movement: Active Heart Tones: Present Heart Tones per Min: 130 Heart Rate (FHR) Variability: Moderate (6-25 bpm) Presentation: Vertex - Murphy Score Murphy Score Cervix Position: Anterior Murphy Score Consistency: Soft Murphy Score Effacement: >80% Murphy Score Dilation: > 5 cm Murphy Score 's Station: -1 ,0 Murphy Score Total: 12 - Exam General: Alert, Oriented, Cooperative Lungs: Clear to Auscultation, Normal Respiratory Effort Cardiovascular: Regular Rate, Regular Rhythm GI/Abdominal Exam: Soft, Non-Tender Genitourinary: Normal external exam Extremities: Normal Inspection Skin: Warm, Dry, Intact - Patient Data Lab Results Last 24 hrs: Laboratory Results - last 24 hr 03/10/21 03/10/21 Range/Units 02:45 03:02 WBC 10.46 H (3.98-10.04) K/mm3 RBC 4.62 (3.98-5.22) M/mm3 Hgb 11.6 (11.2-15.7) gm/dl Hct 36.5 (34.1-44.9) % MCV 79.0 L (79.4-94.8) fl MCH 25.1 L (25.6-32.2) pg MCHC 31.8 L (32.2-35.5) g/dl RDW Std Deviation 43.8 (36.4-46.3) fL Plt Count 225 (182-369) K/mm3 MPV 11.7 (9.4-12.3) fl Neut % (Auto) 70.3 (34.0-71.1) % Lymph % (Auto) 18.9 L (19.3-51.7) % [place] % (Auto) 9.5 (4.7-12.5) % Eos % (Auto) 0.8 (0.7-5.8) Baso % (Auto) 0.2 (0.1-1.2) % Neut # (Auto) 7.36 H (1.56-6.13) K/mm3 Lymph # (Auto) 1.98 (1.18-3.74) K/mm3 [place] # (Auto) 0.99 H (0.24-0.36) K/mm3 Eos # (Auto) 0.08 (0.04-0.36) K/mm3 Baso # (Auto) 0.02 (0.01-0.08) K/mm3 SARS-CoV-2 RNA (FRANCIS) Negative (NEGATIVE) Result Diagrams: 03/10/21 02:45 - Problem List (1) 39 weeks gestation of SNOMED Code(s): 40645236 ICD Code: Z3A.39 - 39 WEEKS GESTATION OF Status: Acute Current Visit: Yes (2) Normal labor SNOMED Code(s): 67577626 ICD Code: O80 - ENCOUNTER FOR FULL-TERM UNCOMPLICATED DELIVERY; Z37.9 - OUTCOME OF DELIVERY, UNSPECIFIED Status: Acute Current Visit: No Problem List Initiated/Reviewed/Updated: Yes Orders Last 24hrs: Active Orders 24 hr Category Date Time Status Patient Status [ADT] Routine ADT 03/10/21 02:31 Active Activity as Tolerated [RC] PFP Care 03/10/21 02:31 Active Communication Order [RC] ASDIRECTED Care 03/10/21 02:31 Active Communication Order [RC] ASDIRECTED Care 03/10/21 03:13 Active Cooling Warming Measures [RC] ASDIRECTED Care 03/10/21 03:13 Active Heart Tones [RC] ASDIRECTED Care 03/10/21 02:31 Active Non Stress Test [RC] PER UNIT ROUTINE Care 03/10/21 02:02 Active Notify Provider [RC] ASDIRECTED Care 03/10/21 03:12 Active Notify Provider [RC] ASDIRECTED Care 03/10/21 03:13 Active Notify Provider [RC] PFP Care 03/10/21 02:31 Active Notify Provider [RC] PRN Care 03/10/21 02:31 Active Oxygen Therapy [RC] ASDIRECTED Care 03/10/21 03:12 Active Peripheral IV Care [RC] . DIRECTED Care 03/10/21 02:31 Active Pulse Oximetry [RC] ASDIRECTED Care 03/10/21 03:12 Active Pump Management, Intrathecal [RC] ASDIRECTED Care 03/10/21 02:32 Active Urinary Catheter Assessment [RC] ASDIRECTED Care 03/10/21 02:31 Active Vital Signs [RC] PER UNIT ROUTINE Care 03/10/21 02:02 Active Vital Signs [RC] Q1H Care 03/10/21 03:12 Active RAPID PLASMA REAGIN,RPR [CHEM] Routine Lab 03/10/21 02:45 Received Bupivacaine/fentaNYL/NS [fentaNYL/Bupivacaine/NS 2 MCG- Med 03/10/21 03:12 Active 0.125% 100 ML] 100 ml EPIDUR ASDIRECTED PRN Calcium Carbonate [Tums] Med 03/10/21 02:31 Active 1,000 mg PO Q2H PRN Lactated Ringers [Ringers, Lactated] 1,000 ml Med 03/10/21 02:45 Active IV ASDIRECTED Nalbuphine [Nubain] Med 03/10/21 02:31 Active 10 mg IVPUSH Q2H PRN Ondansetron [Zofran] Med 03/10/21 02:31 Active 4 mg IVPUSH Q4H PRN Oxytocin/Lactated Ringers [Pitocin in LR 10 Units/1,000 Med 03/10/21 02:45 Active ML] 10 unit in 1,000 ml IV .CONTINUOUS Sodium Chloride 0.9% [Saline Flush] Med 03/10/21 02:31 Active 10 ml FLUSH ASDIRECTED PRN diphenhydrAMINE [Benadryl] Med 03/10/21 03:12 Active 25 mg IVPUSH Q6H PRN ePHEDrine [ePHEDrine sulfate] Med 03/10/21 03:12 Active 5 mg IVPUSH ASDIRECTED PRN fentaNYL [Sublimaze] Med 03/10/21 03:12 Active 100 mcg EPIDUR Q3H PRN Electronic Heart Tones Ext w TOCO [WOMSER] Oth 03/10/21 02:31 Ordered Routine Electronic Heart Tones Internal [WOMSER] Per Unit Oth 03/10/21 02:31 Ordered Routine Peripheral IV Insertion Adult [OM.PC] Routine Oth 03/10/21 02:31 Ordered Resuscitation Status Routine Resus Stat 03/10/21 02:01 Ordered Medication Orders Calcium Carbonate/Glycine (Calcium Carbonate 500 Mg Tab.Chew) 1,000 mg PO Q2H PRN PRN Reason: Indigestion Diphenhydramine HCl (Diphenhydramine 50 Mg/Ml Sdv) 25 mg IVPUSH Q6H PRN PRN Reason: pruritis Ephedrine Sulfate (Ephedrine 50 Mg/Ml Sdv) 5 mg IVPUSH ASDIRECTED PRN PRN Reason: Hypotension Last Admin: 03/10/21 06:38 Dose: 5 mg Documented by: Admin: 03/10/21 05:09 Dose: 5 mg Documented by: Admin: 03/10/21 04:48 Dose: 5 mg Documented by: Admin: 03/10/21 04:24 Dose: 5 mg Documented by: Admin: 03/10/21 04:11 Dose: 5 mg Documented by: Admin: 03/10/21 04:06 Dose: 5 mg Documented by: Admin: 03/10/21 03:56 Dose: 5 mg Documented by: Admin: 03/10/21 03:52 Dose: 5 mg Documented by: ALISTAIR Fentanyl (Fentanyl 100 Mcg/2 Ml Sdv) 100 mcg EPIDUR Q3H PRN PRN Reason: Pain Last Admin: 03/10/21 03:26 Dose: 100 mcg Documented by: ALISTAIR Fentanyl/Bupivacaine HCl (Bupivacaine/Fentanyl/Ns 100 Ml Bag) 100 ml EPIDUR ASDIRECTED PRN PRN Reason: Pain Last Admin: 03/10/21 03:27 Dose: 100 ml Documented by: ALISTAIR Lactated Ringer's (Ringers, Lactated) 1,000 mls @ 100 mls/hr IV ASDIRECTED SIMIN Last Admin: 03/10/21 04:35 Dose: 100 mls/hr Documented by: Infusion: 03/10/21 04:35 Dose: 100 mls/hr Documented by: Admin: 03/10/21 02:45 Dose: 100 mls/hr Documented by: ALISTAIR Oxytocin/Lactated Ringer's (Pitocin In Lr 10 Units/1,000 Ml) 10 unit in 1,000 mls @ 500 mls/hr IV .CONTINUOUS SIMIN Nalbuphine HCl (Nalbuphine 10 Mg/1 Ml Vial) 10 mg IVPUSH Q2H PRN PRN Reason: Pain Ondansetron HCl (Ondansetron 4 Mg/2 Ml Sdv) 4 mg IVPUSH Q4H PRN PRN Reason: Nausea/Vomiting Sodium Chloride (Sodium Chloride 0.9% 10 Ml Syringe) 10 ml FLUSH ASDIRECTED PRN PRN Reason: Keep Vein Open Assessment/Plan Comment:: * Labs done previously and WNL * GBS negative * Epidural in place * AROM done, currently 7-8 cm * Anticipate
--- NOTE | 2021-03-10 08:12 | PCM.DEL ---
L & D Note - General Info Date of Service: 03/10/21 - Delivery Note Labor: Spontaneous Delivery Outcome: Livebirth Delivery Method: Spontaneous Vaginal Delivery-Single Delivery Mode: Spontaneous Presentation: Right Occiput Anterior ([place]) Nuchal Cord: None Anesthesia Type: Epidural Amniotic Fluid Description: Clear Episiotomy Type: None Laceration: 2nd Degree Suture type: Vicryl Suture size: 3-0 Placenta: Intact, Spontaneous Cord: 3 Vessels Estimated Blood Loss: 150 Resuscitation Needed: Yes [place]: Bulb Syringe, Stimulated, Warmed, [place] Used, Warmer Used Delivery Comments (Free Text/Narrative):: Patient found to be complete and began pushing. With maternal pushing effort head delivered from a straight OA presentation. Rotated to [place] and anterior shoulder delivered with gentle downward traction. Remainder of quickly followed. Infant placed on maternal abdomen. Cord clamped and cut. Cord blood obtained. Placenta allowed time to separate and expelled intact. Inspection of perineum with small 2nd degree laceration repaired with a an interrupted suture of 3-0 Vicryl - General Info Date of Service: 03/10/21 - Patient Data Vitals - Most Recent: Last Vital Signs Temp 36.4 C 03/10/21 02:15 Pulse 71 03/10/21 02:15 Resp 16 03/10/21 02:15 BP 122/72 03/10/21 02:15 Pulse Ox 99 03/10/21 02:15 Weight - Most Recent: 115.303 kg - Exam Urinary Catheter Total Time: 0Days 3Hours - Problem List & Annotations (1) 39 weeks gestation of SNOMED Code(s): 21277689 Code(s): Z3A.39 - 39 WEEKS GESTATION OF Status: Acute Current Visit: Yes (2) Normal labor SNOMED Code(s): 50231342 Code(s): O80 - ENCOUNTER FOR FULL-TERM UNCOMPLICATED DELIVERY; Z37.9 - OUTCOME OF DELIVERY, UNSPECIFIED Status: Acute Current Visit: No (3) Vaginal delivery SNOMED Code(s): 506733360 Code(s): O80 - ENCOUNTER FOR FULL-TERM UNCOMPLICATED DELIVERY Status: Acute Current Visit: No - Problem List Review Problem List Initiated/Reviewed/Updated: Yes - My Orders Last 24 Hours: My Active Orders 03/10/21 02:01 Resuscitation Status Routine 03/10/21 02:02 Non Stress Test [RC] PER UNIT ROUTINE Vital Signs [RC] 03,09,15,03/10/21 02:31 Patient Status [ADT] Routine Activity as Tolerated [RC] PFP Communication Order [RC] ASDIRECTED Heart Tones [RC] ASDIRECTED Notify Provider [RC] PFP Notify Provider [RC] PRN Peripheral IV Care [RC] . DIRECTED Urinary Catheter Assessment [RC] ASDIRECTED Calcium Carbonate [Tums] 1,000 mg PO Q2H PRN Nalbuphine [Nubain] 10 mg IVPUSH Q2H PRN Ondansetron [Zofran] 4 mg IVPUSH Q4H PRN Sodium Chloride 0.9% [Saline Flush] 10 ml FLUSH ASDIRECTED PRN Electronic Heart Tones Ext w TOCO [WOMSER] Routine Electronic Heart Tones Internal [WOMSER] Per Unit Routine Peripheral IV Insertion Adult [OM.PC] Routine 03/10/21 02:32 Pump Management, Intrathecal [RC] ASDIRECTED 03/10/21 02:45 RAPID PLASMA REAGIN,RPR [CHEM] Routine Lactated Ringers [Ringers, Lactated] 1,000 ml IV ASDIRECTED Oxytocin/Lactated Ringers [Pitocin in LR 10 Units/1,000 ML] 10 unit in 1,000 ml IV .CONTINUOUS - Assessment Assessment:: PPD#0 - Plan Plan:: * Routine cares * Breast feeding * Discharge home in 1 day
[2021-03-10] MEDS ORDERED: Witch Hazel Medicated Pads 40/Jar TOP PRN ×3 (11:24→12:45)
[2021-03-10] MEDS ORDERED: Benzocaine/Menthol 20%-0.5% Spray 78 GM Cannister TOP PRN ×3 (11:24→12:45)
[2021-03-10] MEDS ORDERED: Docusate Sodium 100 MG Cap PO PRN ×2 (11:28→12:45)
[2021-03-10] MEDS ORDERED: Ibuprofen 600 MG Tab PO PRN ×2 (11:28→12:45)
[2021-03-10] MEDS ORDERED: Acetaminophen 325 MG Tab PO PRN ×2 (11:28→12:45)
--- NOTE | 2021-03-11 06:31 | PCM.PNPP ---
- General Info Date of Service: 03/11/21 Functional Status: Reports: Pain Controlled, Tolerating Diet, Ambulating, Urinating - Review of Systems General: Reports: No Symptoms Pulmonary: Reports: No Symptoms Cardiovascular: Reports: No Symptoms Gastrointestinal: Reports: No Symptoms Genitourinary: Reports: No Symptoms Musculoskeletal: Reports: No Symptoms Neurological: Reports: No Symptoms - General Info Date of Service: 03/11/21 - Patient Data Vital Signs - Most Recent: Last Vital Signs Temp 36.1 C 03/11/21 04:29 Pulse 70 03/11/21 04:29 Resp 14 03/11/21 04:29 BP 118/71 03/11/21 04:29 Pulse Ox 93 L 03/11/21 04:29 Weight - Most Recent: 115.303 kg I&O - Last 24 Hours: Intake & Output 03/10/21 03/10/21 03/11/21 14:59 22:59 06:59 Intake Total 2940 120 Output Total 350 Balance 2590 120 Lab Results - Last 24 Hours: Laboratory Results - last 24 hr 03/10/21 Range/Units 02:45 RPR Non-reactive (NONREACTIVE) Med Orders - Current: Current Medications Acetaminophen (Acetaminophen 325 Mg Tab) 650 mg PO Q4H PRN PRN Reason: mild pain or fever Benzocaine/Menthol (Benzocaine/Menthol 20%-0.5% [place] 78 Gm Cannister) 0 gm TOP ASDIRECTED PRN PRN Reason: Perineal Comfort Measure Docusate Sodium (Docusate Sodium 100 Mg Cap) 100 mg PO BID PRN PRN Reason: Constipation Ibuprofen (Ibuprofen 600 Mg Tab) 600 mg PO Q6H PRN PRN Reason: Mild pain or fever Last Admin: 03/11/21 00:32 Dose: 600 mg Documented by: Lindsey Garcia (Lindsey Garcia Medicated Pads 40/Jar) 1 pad TOP ASDIRECTED PRN PRN Reason: Perineal Comfort Measure Discontinued Medications Acetaminophen (Acetaminophen 325 Mg Tab) 650 mg PO Q4H PRN PRN Reason: mild pain or fever Benzocaine/Menthol (Benzocaine/Menthol 20%-0.5% [place] 78 Gm Cannister) 15 gm TOP ASDIRECTED PRN PRN Reason: Pain Benzocaine/Menthol (Benzocaine/Menthol 20%-0.5% [place] 78 Gm Cannister) 0 gm TOP ASDIRECTED PRN PRN Reason: Perineal Comfort Measure Bupivacaine HCl (Bupivacaine 0.25% 10 Ml Sdv) 10 ml .ROUTE .DataArt-MED ONE Stop: 03/10/21 00:01 Calcium Carbonate/Glycine (Calcium Carbonate 500 Mg Tab.Chew) 1,000 mg PO Q2H PRN PRN Reason: Indigestion Diphenhydramine HCl (Diphenhydramine 50 Mg/Ml Sdv) 25 mg IVPUSH Q6H PRN PRN Reason: pruritis Docusate Sodium (Docusate Sodium 100 Mg Cap) 100 mg PO BID PRN PRN Reason: Constipation Ephedrine Sulfate (Ephedrine 50 Mg/Ml Sdv) 5 mg IVPUSH ASDIRECTED PRN PRN Reason: Hypotension Last Admin: 03/10/21 06:38 Dose: 5 mg Documented by: Ephedrine Sulfate (Ephedrine 50 Mg/Ml Sdv) 50 mg .ROUTE .DataArt-F-Origin ONE Stop: 03/10/21 00:01 Fentanyl (Fentanyl 100 Mcg/2 Ml Sdv) 100 mcg EPIDUR Q3H PRN PRN Reason: Pain Last Admin: 03/10/21 03:26 Dose: 100 mcg Documented by: Fentanyl/Bupivacaine HCl (Bupivacaine/Fentanyl/Ns 100 Ml Bag) 100 ml EPIDUR ASDIRECTED PRN PRN Reason: Pain Last Admin: 03/10/21 03:27 Dose: 100 ml Documented by: Lactated Ringer's (Ringers, Lactated) 1,000 mls @ 100 mls/hr IV ASDIRECTED SIMIN Last Admin: 03/10/21 04:35 Dose: 100 mls/hr Documented by: Oxytocin/Lactated Ringer's (Pitocin In Lr 10 Units/1,000 Ml) 10 unit in 1,000 mls @ 500 mls/hr IV .CONTINUOUS SIMIN Last Admin: 03/10/21 07:52 Dose: 500 mls/hr Documented by: Ibuprofen (Ibuprofen 600 Mg Tab) 600 mg PO Q4H PRN PRN Reason: Mild pain or fever Nalbuphine HCl (Nalbuphine 10 Mg/1 Ml Vial) 10 mg IVPUSH Q2H PRN PRN Reason: Pain Ondansetron HCl (Ondansetron 4 Mg/2 Ml Sdv) 4 mg IVPUSH Q4H PRN PRN Reason: Nausea/Vomiting Sodium Chloride (Sodium Chloride 0.9% 10 Ml Syringe) 10 ml FLUSH ASDIRECTED PRN PRN Reason: Keep Vein Open Witch Radha (Witch Radha Medicated Pads 40/Jar) 1 pad TOP ASDIRECTED PRN PRN Reason: Pain Witch Radha (Witch Radha Medicated Pads 40/Jar) 1 pad TOP ASDIRECTED PRN PRN Reason: Perineal Comfort Measure - Interaction Disposition, : [place] in Room with Family Infant Interaction: Holding Infant Feeding: Breastfed Infant; Nursed Well Support Person: - Recovery Exam Fundal Tone: Firm Fundal Level: 1 Fingerbreadths Below Umbilicus Fundal Placement: Midline Lochia Amount: Clots/Tissue Present Lochia Color: Rubra/Red Perineum Description: Other (see below) Other Perinuem Description: 2nd degree repaired Episiotomy/Laceration: Approximated Bladder Status: Voiding Urinary Elimination: Voided - Exam General: Alert, Oriented, Cooperative GI/Abdominal Exam: Soft, Non-Tender - Problem List & Annotations (1) 39 weeks gestation of SNOMED Code(s): 52476540 Code(s): Z3A.39 - 39 WEEKS GESTATION OF Status: Acute (2) Normal labor SNOMED Code(s): 35357593 Code(s): O80 - ENCOUNTER FOR FULL-TERM UNCOMPLICATED DELIVERY; Z37.9 - OUTCOME OF DELIVERY, UNSPECIFIED Status: Acute (3) Vaginal delivery SNOMED Code(s): 991776089 Code(s): O80 - ENCOUNTER FOR FULL-TERM UNCOMPLICATED DELIVERY Status: Acute - Problem List Review Problem List Initiated/Reviewed/Updated: Yes - My Orders Last 24 Hours: My Active Orders 03/10/21 Lunch Regular Diet [DIET] 03/10/21 12:45 Acetaminophen [TylenoL] 650 mg PO Q4H PRN Benzocaine/Menthol [Dermoplast Pain Relief 20%-0.5% [place]] See Dose Instructions TOP ASDIRECTED PRN Docusate Sodium [Colace] 100 mg PO BID PRN Ibuprofen [Motrin] 600 mg PO Q6H PRN witch Radha [Tucks] 1 pad TOP ASDIRECTED PRN Heat Therapy [OM.PC] PRN 03/10/21 12:45 Activity as Tolerated [RC] PER UNIT ROUTINE Vital Signs [RC] ASDIRECTED Assess Lochia [WOMSER] Per Unit Routine Assess Uterine Involution [WOMSER] Per Unit Routine Breast Pump [WOMSER] Per Unit Routine Ice Therapy [OM.PC] Per Unit Routine Perineal Care [OM.PC] Per Unit Routine Peripheral IV Discontinue [OM.PC] Routine Sitz Bath [OM.PC] Per Unit Routine 03/11/21 06:31 Ready for Discharge [RC] PER UNIT ROUTINE 03/11/21 12:45 Heat Therapy [OM.PC] PRN - Assessment Assessment:: PPD#1 - Plan Plan:: * Routine cares * Breast feeding * Discharge home today
--- NOTE | 2021-03-11 06:32 | PCM.DCSUM1 ---
Discharge Summary - Discharge Data Discharge Date: 03/11/21 Discharge Disposition: Home, Self-Care 01 Condition: Good - Referral to Home Health Primary Care Physician: Kayley Ramos MD - Discharge Diagnosis/Problem(s) (1) 39 weeks gestation of SNOMED Code(s): 43596101 ICD Code: Z3A.39 - 39 WEEKS GESTATION OF Status: Acute (2) Normal labor SNOMED Code(s): 01653384 ICD Code: O80 - ENCOUNTER FOR FULL-TERM UNCOMPLICATED DELIVERY; Z37.9 - OUTCOME OF DELIVERY, UNSPECIFIED Status: Acute (3) Vaginal delivery SNOMED Code(s): 318740034 ICD Code: O80 - ENCOUNTER FOR FULL-TERM UNCOMPLICATED DELIVERY Status: Acute - Patient Summary/Data Complications: None Consults: None Recommended Follow-up Testing/Procedures: Follow up in 3 weeks for check Hospital Course: 25 y/o at 39 2/7 wks presented in labor. Progressed well to complete and underwent an uncomplicated . See delivery note. did well and was discharged home on PPD#1 - Patient Instructions Diet: Regular Diet as Tolerated Activity: As Tolerated Activity, Other: Pelvic rest for 6 weeks Driving: May Drive Today Showering/Bathing: May Shower Showering/Bathing, Other: May Bathe Notify Provider of: Fever, Increased Pain, Swelling and Redness, Drainage, Nausea and/or Vomiting - Discharge Plan *PRESCRIPTION DRUG MONITORING PROGRAM REVIEWED*: No *COPY OF PRESCRIPTION DRUG MONITORING REPORT IN PATIENT TASIA: No Home Medications: Home Meds No122/Iron/Folic Acid [ Multi Tablet] 1 each PO DAILY 04/02/19 [History] Acetaminophen [Tylenol] 650 mg PO Q4H PRN tablet 03/10/21 [Rx] Docusate Sodium [Colace] 100 mg PO BID PRN cap 03/10/21 [Rx] Ibuprofen [Motrin] 600 mg PO Q6H PRN tablet 03/10/21 [Rx] Patient Handouts: Tips for a Good Latch, Wgnt-vs-Vpkm, Care After Vaginal Delivery Referrals: Kayley Ramos MD [Primary Care Provider] - (3 weeks for check ) - Discharge Summary/Plan Comment DC Time >30 min.: No Total # of Minutes for Discharge Time: 15 - Patient Data Vitals - Most Recent: Last Vital Signs Temp 36.1 C 03/11/21 04:29 Pulse 70 03/11/21 04:29 Resp 14 03/11/21 04:29 BP 118/71 03/11/21 04:29 Pulse Ox 93 L 03/11/21 04:29 Weight - Most Recent: 115.303 kg I&O - Last 24 hours: Intake & Output 03/10/21 03/10/21 03/11/21 14:59 22:59 06:59 Intake Total 2940 120 Output Total 350 Balance 2590 120 Lab Results - Last 24 hrs: Laboratory Results - last 24 hr 03/10/21 Range/Units 02:45 RPR Non-reactive (NONREACTIVE) Med Orders - Current: Current Medications Acetaminophen (Acetaminophen 325 Mg Tab) 650 mg PO Q4H PRN PRN Reason: mild pain or fever Benzocaine/Menthol (Benzocaine/Menthol 20%-0.5% [place] 78 Gm Cannister) 0 gm TOP ASDIRECTED PRN PRN Reason: Perineal Comfort Measure Docusate Sodium (Docusate Sodium 100 Mg Cap) 100 mg PO BID PRN PRN Reason: Constipation Ibuprofen (Ibuprofen 600 Mg Tab) 600 mg PO Q6H PRN PRN Reason: Mild pain or fever Last Admin: 03/11/21 00:32 Dose: 600 mg Documented by: Lindsey Garcia (Lindsey Garcia Medicated Pads 40/Jar) 1 pad TOP ASDIRECTED PRN PRN Reason: Perineal Comfort Measure Discontinued Medications Acetaminophen (Acetaminophen 325 Mg Tab) 650 mg PO Q4H PRN PRN Reason: mild pain or fever Benzocaine/Menthol (Benzocaine/Menthol 20%-0.5% [place] 78 Gm Cannister) 15 gm TOP ASDIRECTED PRN PRN Reason: Pain Benzocaine/Menthol (Benzocaine/Menthol 20%-0.5% [place] 78 Gm Cannister) 0 gm TOP ASDIRECTED PRN PRN Reason: Perineal Comfort Measure Bupivacaine HCl (Bupivacaine 0.25% 10 Ml Sdv) 10 ml .ROUTE .STK-MED ONE Stop: 03/10/21 00:01 Calcium Carbonate/Glycine (Calcium Carbonate 500 Mg Tab.Chew) 1,000 mg PO Q2H PRN PRN Reason: Indigestion Diphenhydramine HCl (Diphenhydramine 50 Mg/Ml Sdv) 25 mg IVPUSH Q6H PRN PRN Reason: pruritis Docusate Sodium (Docusate Sodium 100 Mg Cap) 100 mg PO BID PRN PRN Reason: Constipation Ephedrine Sulfate (Ephedrine 50 Mg/Ml Sdv) 5 mg IVPUSH ASDIRECTED PRN PRN Reason: Hypotension Last Admin: 03/10/21 06:38 Dose: 5 mg Documented by: Ephedrine Sulfate (Ephedrine 50 Mg/Ml Sdv) 50 mg .ROUTE .STK-MED ONE Stop: 03/10/21 00:01 Fentanyl (Fentanyl 100 Mcg/2 Ml Sdv) 100 mcg EPIDUR Q3H PRN PRN Reason: Pain Last Admin: 03/10/21 03:26 Dose: 100 mcg Documented by: Fentanyl/Bupivacaine HCl (Bupivacaine/Fentanyl/Ns 100 Ml Bag) 100 ml EPIDUR ASDIRECTED PRN PRN Reason: Pain Last Admin: 03/10/21 03:27 Dose: 100 ml Documented by: Lactated Ringer's (Ringers, Lactated) 1,000 mls @ 100 mls/hr IV ASDIRECTED SIMIN Last Admin: 03/10/21 04:35 Dose: 100 mls/hr Documented by: Oxytocin/Lactated Ringer's (Pitocin In Lr 10 Units/1,000 Ml) 10 unit in 1,000 mls @ 500 mls/hr IV .CONTINUOUS SIMIN Last Admin: 03/10/21 07:52 Dose: 500 mls/hr Documented by: Ibuprofen (Ibuprofen 600 Mg Tab) 600 mg PO Q4H PRN PRN Reason: Mild pain or fever Nalbuphine HCl (Nalbuphine 10 Mg/1 Ml Vial) 10 mg IVPUSH Q2H PRN PRN Reason: Pain Ondansetron HCl (Ondansetron 4 Mg/2 Ml Sdv) 4 mg IVPUSH Q4H PRN PRN Reason: Nausea/Vomiting Sodium Chloride (Sodium Chloride 0.9% 10 Ml Syringe) 10 ml FLUSH ASDIRECTED PRN PRN Reason: Keep Vein Open Witch Radha (Witch Radha Medicated Pads 40/Jar) 1 pad TOP ASDIRECTED PRN PRN Reason: Pain Witch Radha (Witch Radha Medicated Pads 40/Jar) 1 pad TOP ASDIRECTED PRN PRN Reason: Perineal Comfort Measure
--- NOTE | 2021-03-11 07:52 | PCM48HPAN ---
Post Anesthesia Note - EVALUATION WITHIN 48HRS OF ANESTHETIC Vital Signs in Normal Range: Yes Patient Participated in Evaluation: Yes Respiratory Function Stable: Yes Airway Patent: Yes Cardiovascular Function Stable: Yes Hydration Status Stable: Yes Pain Control Satisfactory: Yes Nausea and Vomiting Control Satisfactory: Yes Mental Status Recovered: Yes Vital Signs: Last Vital Signs Temp 36.1 C 03/11/21 04:29 Pulse 70 03/11/21 04:29 Resp 14 03/11/21 04:29 BP 118/71 03/11/21 04:29 Pulse Ox 93 L 03/11/21 04:29
== END 2021-03-11 12:05 | disposition home or self-care (01) | DRG 807 ==
LOC: JD.OBCHECK 01:53 → JD.OB 01:56 → JD.OBCHECK 02:30 → JD.OB 02:31 → OBSVTOIN 07:52 → JD.OB 07:53
PROVIDERS: ADMIT Obstetrics & Gynecology; ATTEND Obstetrics & Gynecology
PROC: 10E0XZZ Delivery of Products of Conception, External Approach (ICD-10-PCS; principal; 2021-03-10)
PROC: 0KQM0ZZ Repair Perineum Muscle, Open Approach (ICD-10-PCS; 2021-03-10)
PROC: 10907ZC Drainage of Amniotic Fluid, Therapeutic from Products of Conception, Via Natural or Artificial Opening (ICD-10-PCS; 2021-03-10)
PROC: 3E0R3BZ Introduction of Anesthetic Agent into Spinal Canal, Percutaneous Approach (ICD-10-PCS; 2021-03-10)
PROC: 00HU33Z Insertion of Infusion Device into Spinal Canal, Percutaneous Approach (ICD-10-PCS; 2021-03-10)
DX: O99.62 Diseases of the digestive system complicating childbirth (principal); Z37.0 Single live birth; K21.9 Gastro-esophageal reflux disease without esophagitis; Z87.442 Personal history of urinary calculi; O70.1 Second degree perineal laceration during delivery; Z20.822 Contact with and (suspected) exposure to COVID-19; Z3A.38 38 weeks gestation of pregnancy
CPT/HCPCS: 01967; 36415; 51702; 59025; 59409; 85025; 86592; A9270-GY; J2590; J3010; J3490; J7120; U0002

== ENCOUNTER 2021-03-24 08:42 | Inpatient (IN) | payer OTHER ==
[2021-03-24] MEDS ORDERED: Sodium Chloride 0.9% 1,000 ML IV SCH ×2 (09:00→14:15)
[2021-03-24] MEDS ORDERED: Ondansetron 4 MG/2 ML SDV IVPUSH ONE (09:00)
[2021-03-24] MEDS ORDERED: HYDROmorphone 0.5 MG/0.5 ML Syringe IVPUSH ONE (09:03)
--- NOTE | 2021-03-24 09:10 | EDM.PDOC ---
ED HPI GENERAL MEDICAL PROBLEM - General Chief Complaint: Chest Pain Stated Complaint: CHEST PAIN Time Seen by Provider: 03/24/21 08:49 Source of Information: Reports: Patient History Limitations: Reports: No Limitations - History of Present Illness INITIAL COMMENTS - FREE TEXT/NARRATIVE: The patient presents with chest pain, shortness of breath and upper abdominal pain. She was sent over from the walk in clinic. This started 2 days ago. She has nausea and vomiting. She has burning in her chest and upper abdomen. She cannot eat. She has no diarrhea. She has no fever, chills, or cough. She just delivered a baby by vaginal 2 weeks ago. There were no complications with the delivery. She is currently breast feeding. She has no dysuria or hematuria. She has no pain or swelling in her legs. Onset: Gradual Duration: Day(s): (2) Location: Reports: Chest, Abdomen Quality: Reports: Burning Severity: Moderate Improves with: Reports: None Worsens with: Reports: None Associated Symptoms: Reports: Chest Pain, Nausea/Vomiting, Shortness of Breath. 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: - Past Surgical History Musculoskeletal Surgical History: Reports: Other (See Below) Other Musculoskeletal Surgeries/Procedures:: knee surgery 2014 Social & Family History - Family History Family Medical History: No Pertinent Family History HEENT: Reports: None - Tobacco Use Tobacco Use Status *Q: Never Tobacco User Second Hand Smoke Exposure: No - Caffeine Use Caffeine Use: Reports: Coffee - Recreational Drug Use Recreational Drug Use: No ED ROS GENERAL - Review of Systems Review Of Systems: See Below Constitutional: Reports: No Symptoms HEENT: Reports: No Symptoms Respiratory: Reports: Shortness of Breath. Denies: Cough Cardiovascular: Reports: No Symptoms Endocrine: Reports: No Symptoms GI/Abdominal: Reports: Abdominal Pain, Nausea, Vomiting. Denies: Diarrhea : Reports: No Symptoms Musculoskeletal: Reports: No Symptoms ED EXAM, GENERAL - Physical Exam Exam: See Below Exam Limited By: No Limitations General Appearance: Alert, No Apparent Distress Ears: Normal External Exam Nose: Normal Inspection Head: Atraumatic, Normocephalic Neck: Normal Inspection Respiratory/Chest: No Respiratory Distress, Lungs Clear, Normal Breath Sounds Cardiovascular: Regular Rate, Rhythm, No Edema, No Murmur GI/Abdominal: Soft, No Organomegaly, No Mass, Other (Pain upon palpation to the epigastric region but more to the RUQ) Extremities: Normal Inspection Neurological: Alert, Oriented, No Motor/Sensory Deficits #1 Interpretation EKG Date: 03/24/21 Time: 08:51 Rhythm: NSR Rate (Beats/Min): 66 [place]: Normal P-Wave: Present QRS: Normal ST-T: Normal QT: Normal Course - Vital Signs Last Recorded V/S: Last Vital Signs Temp 95.1 F L 03/24/21 08:48 Pulse 68 03/24/21 08:48 Resp 20 03/24/21 08:48 BP 114/73 03/24/21 08:48 Pulse Ox 97 03/24/21 08:48 - Orders/Labs/Meds Orders: Active Orders 24 hr Category Date Time Status Patient Status [ADT] Routine ADT 03/24/21 14:32 Active Patient Status [ADT] Routine ADT 03/24/21 14:34 Active Cardiac Monitoring [RC] . DIRECTED Care 03/24/21 09:00 Active Intake and Output [RC] QSHIFT Care 03/24/21 14:33 Active Notify Provider Consults [RC] ASDIRECTED Care 03/24/21 14:35 Active Oxygen Therapy [RC] PRN Care 03/24/21 14:32 Active Oxygen Therapy [RC] PRN Care 03/24/21 14:36 Active Peripheral IV Care [RC] . DIRECTED Care 03/24/21 09:02 Active Up ad Elo [RC] ASDIRECTED Care 03/24/21 14:32 Active VTE/DVT Education [RC] PER UNIT ROUTINE Care 03/24/21 14:32 Active VTE/DVT Education [RC] PER UNIT ROUTINE Care 03/24/21 14:36 Active Vital Signs [RC] Q4H Care 03/24/21 14:32 Active Consult to Physician [CONS] Routine Cons 03/24/21 14:32 Active Nothing per Oral Now Diet [DIET] Diet 03/24/21 Dinner Active CBC WITH AUTO DIFF [HEME] Routine Lab 03/25/21 06:00 Ordered COMPREHENSIVE METABOLIC PN,CMP [CHEM] Routine Lab 03/25/21 06:00 Ordered Docusate Sodium [Colace] Med 03/24/21 14:36 Active 100 mg PO BID PRN Heparin Sodium Med 03/24/21 18:00 Active 5,000 units SUBCUT Q12H Morphine Med 03/24/21 14:36 Active 2 mg IVPUSH Q2H PRN Ondansetron [Zofran] Med 03/24/21 14:36 Active 4 mg IV Q4H PRN Sodium Chloride 0.9% [Normal Saline] 1,000 ml Med 03/24/21 09:00 Active IV .BOLUS Sodium Chloride 0.9% [Normal Saline] 1,000 ml Med 03/24/21 14:15 Active IV ASDIRECTED Sodium Chloride 0.9% [Normal Saline] 100 ml Med 03/24/21 10:45 Active IV ASDIRECTED Sodium Chloride 0.9% [Saline Flush] Med 03/24/21 09:00 Active 10 ml FLUSH ASDIRECTED PRN Sodium Chloride 0.9% [Saline Flush] Med 03/24/21 14:36 Active 10 ml FLUSH ASDIRECTED PRN Sodium Chloride 0.9% [Saline Flush] Med 03/24/21 10:43 Active 10 ml FLUSH ONETIME PRN ED Antiemetic Medication Reflex [OM.PC] Stat Oth 03/24/21 09:01 Ordered Peripheral IV Insertion Adult [OM.PC] Stat Oth 03/24/21 09:00 Ordered Saline Lock Insert [OM.PC] Routine Oth 03/24/21 14:36 Ordered Resuscitation Status Routine Resus Stat 03/24/21 14:32 Ordered Medication Orders Docusate Sodium (Docusate Sodium 100 Mg Cap) 100 mg PO BID PRN PRN Reason: Constipation Heparin Sodium (Porcine) (Heparin Sodium 5,000 Units/Ml Vial) 5,000 units SUBCUT Q12H SIMIN Sodium Chloride (Normal Saline) 1,000 mls @ 1,000 mls/hr IV .BOLUS SIMIN Last Admin: 03/24/21 09:32 Dose: 1,000 mls/hr Documented by: RANGEL Sodium Chloride (Normal Saline) 100 mls @ 75 mls/hr IV ASDIRECTED SIMIN Last Admin: 03/24/21 11:02 Dose: 75 mls/hr Documented by: TY Sodium Chloride (Normal Saline) 1,000 mls @ 250 mls/hr IV ASDIRECTED SIMIN Last Admin: 03/24/21 14:17 Dose: 250 mls/hr Documented by: RANGEL Morphine Sulfate (Morphine 2 Mg/Ml Syringe) 2 mg IVPUSH Q2H PRN PRN Reason: Pain (severe 7-10) Stop: 03/25/21 14:37 Ondansetron HCl (Ondansetron 4 Mg/2 Ml Sdv) 4 mg IV Q4H PRN PRN Reason: Nausea/Vomiting Sodium Chloride (Sodium Chloride 0.9% 10 Ml Syringe) 10 ml FLUSH ASDIRECTED PRN PRN Reason: Keep Vein Open Last Admin: 03/24/21 09:32 Dose: 10 ml Documented by: RANGEL Sodium Chloride (Sodium Chloride 0.9% 10 Ml Syringe) 10 ml FLUSH ONETIME PRN PRN Reason: IV FLUSH Last Admin: 03/24/21 11:02 Dose: 10 ml Documented by: TY Sodium Chloride (Sodium Chloride 0.9% 10 Ml Syringe) 10 ml FLUSH ASDIRECTED PRN PRN Reason: Keep Vein Open Labs: Laboratory Tests 03/24/21 03/24/21 03/24/21 Range/Units 09:17 09:17 09:17 WBC 10.72 H (3.98-10.04) K/mm3 RBC 5.18 (3.98-5.22) M/mm3 Hgb 13.2 D (11.2-15.7) gm/dl Hct 41.3 (34.1-44.9) % MCV 79.7 (79.4-94.8) fl MCH 25.5 L (25.6-32.2) pg MCHC 32.0 L (32.2-35.5) g/dl RDW Std Deviation 45.4 (36.4-46.3) fL Plt Count 284 (182-369) K/mm3 MPV 11.5 (9.4-12.3) fl Neut % (Auto) 84.2 H (34.0-71.1) % Lymph % (Auto) 7.3 L (19.3-51.7) % [place] % (Auto) 7.1 (4.7-12.5) % Eos % (Auto) 0.7 (0.7-5.8) Baso % (Auto) 0.3 (0.1-1.2) % Neut # (Auto) 9.04 H (1.56-6.13) K/mm3 Lymph # (Auto) 0.78 L (1.18-3.74) K/mm3 [place] # (Auto) 0.76 H (0.24-0.36) K/mm3 Eos # (Auto) 0.07 (0.04-0.36) K/mm3 Baso # (Auto) 0.03 (0.01-0.08) K/mm3 D-Dimer, Quantitative 3.98 H (0.19-0.50) mg/L Sodium 144 (136-145) mEq/L Potassium 3.8 (3.5-5.1) mEq/L Chloride 106 (98-107) mEq/L Carbon Dioxide 25 (21-32) mEq/L Anion Gap 16.8 H (5-15) BUN 12 (7-18) mg/dL Creatinine 0.8 (0.55-1.02) mg/dL Est Cr Clr Drug Dosing 109.38 mL/min Estimated GFR (MDRD) > 60 (>60) mL/min BUN/Creatinine Ratio 15.0 (14-18) Glucose 88 (70-99) mg/dL Calcium 8.6 (8.5-10.1) mg/dL Total Bilirubin 4.9 H (0.2-1.0) mg/dL AST 820 H (15-37) U/L ALT 1183 H (14-59) U/L Alkaline Phosphatase 352 H (46-116) U/L Troponin I < 0.017 (0.00-0.056) ng/mL C-Reactive Protein 3.4 H* (<1.0) mg/dL Total Protein 7.0 (6.4-8.2) g/dl Albumin 3.0 L (3.4-5.0) g/dl Globulin 4.0 gm/dL Albumin/Globulin Ratio 0.8 L (1-2) Lipase H (73-393) U/L HCG, Qual (NEGATIVE) SARS-CoV-2 RNA (FRANCIS) (NEGATIVE) 03/24/21 03/24/21 Range/Units 09:17 13:47 WBC (3.98-10.04) K/mm3 RBC (3.98-5.22) M/mm3 Hgb (11.2-15.7) gm/dl Hct (34.1-44.9) % MCV (79.4-94.8) fl MCH (25.6-32.2) pg MCHC (32.2-35.5) g/dl RDW Std Deviation (36.4-46.3) fL Plt Count (182-369) K/mm3 MPV (9.4-12.3) fl Neut % (Auto) (34.0-71.1) % Lymph % (Auto) (19.3-51.7) % [place] % (Auto) (4.7-12.5) % Eos % (Auto) (0.7-5.8) Baso % (Auto) (0.1-1.2) % Neut # (Auto) (1.56-6.13) K/mm3 Lymph # (Auto) (1.18-3.74) K/mm3 [place] # (Auto) (0.24-0.36) K/mm3 Eos # (Auto) (0.04-0.36) K/mm3 Baso # (Auto) (0.01-0.08) K/mm3 D-Dimer, Quantitative (0.19-0.50) mg/L Sodium (136-145) mEq/L Potassium (3.5-5.1) mEq/L Chloride (98-107) mEq/L Carbon Dioxide (21-32) mEq/L Anion Gap (5-15) BUN (7-18) mg/dL Creatinine (0.55-1.02) mg/dL Est Cr Clr Drug Dosing mL/min Estimated GFR (MDRD) (>60) mL/min BUN/Creatinine Ratio (14-18) Glucose (70-99) mg/dL Calcium (8.5-10.1) mg/dL Total Bilirubin (0.2-1.0) mg/dL AST (15-37) U/L ALT (14-59) U/L Alkaline Phosphatase (46-116) U/L Troponin I (0.00-0.056) ng/mL C-Reactive Protein (<1.0) mg/dL Total Protein (6.4-8.2) g/dl Albumin (3.4-5.0) g/dl Globulin gm/dL Albumin/Globulin Ratio (1-2) Lipase (73-393) U/L HCG, Qual Negative (NEGATIVE) SARS-CoV-2 RNA (FRANCIS) Negative (NEGATIVE) Meds: Medications Generic Name Dose Route Start Last Admin Trade Name Freq PRN Reason Stop Dose Admin Docusate Sodium 100 mg 03/24/21 14:36 Docusate Sodium 100 Mg Cap PO BID PRN Constipation Heparin Sodium (Porcine) 5,000 units 03/24/21 18:00 Heparin Sodium 5,000 Units/Ml Vial SUBCUT Q12H SIMIN Sodium Chloride 1,000 mls @ 1,000 mls/hr 03/24/21 09:00 03/24/21 09:32 Normal Saline IV 1,000 mls/hr .BOLUS SIMIN Administration Sodium Chloride 100 mls @ 75 mls/hr 03/24/21 10:45 03/24/21 11:02 Normal Saline IV 75 mls/hr ASDIRECTED SIMIN Administration Sodium Chloride 1,000 mls @ 250 mls/hr 03/24/21 14:15 03/24/21 14:17 Normal Saline IV 250 mls/hr ASDIRECTED SIMIN Administration Morphine Sulfate 2 mg 03/24/21 14:36 Morphine 2 Mg/Ml Syringe IVPUSH 03/25/21 14:37 Q2H PRN Pain (severe 7-10) Ondansetron HCl 4 mg 03/24/21 14:36 Ondansetron 4 Mg/2 Ml Sdv IV Q4H PRN Nausea/Vomiting Sodium Chloride 10 ml 03/24/21 09:00 03/24/21 09:32 Sodium Chloride 0.9% 10 Ml Syringe FLUSH 10 ml ASDIRECTED PRN Administration Keep Vein Open Sodium Chloride 10 ml 03/24/21 10:43 03/24/21 11:02 Sodium Chloride 0.9% 10 Ml Syringe FLUSH 10 ml ONETIME PRN Administration IV FLUSH Sodium Chloride 10 ml 03/24/21 14:36 Sodium Chloride 0.9% 10 Ml Syringe FLUSH ASDIRECTED PRN Keep Vein Open Discontinued Medications Generic Name Dose Route Start Last Admin Trade Name [place] PRN Reason Stop Dose Admin Hydromorphone HCl 0.5 mg 03/24/21 09:03 Hydromorphone 0.5 Mg/0.5 Ml Syringe IVPUSH 03/24/21 09:04 ONETIME ONE Iopamidol 100 ml 03/24/21 10:43 03/24/21 11:02 Iopamidol 755 Mg/Ml 100 Ml Bottle IVPUSH 03/24/21 10:44 100 ml ONETIME ONE Administration Ondansetron HCl 4 mg 03/24/21 09:00 03/24/21 09:31 Ondansetron 4 Mg/2 Ml Sdv IVPUSH 03/24/21 09:01 4 mg ONETIME ONE Administration - Re-Assessments/Exams Free Text/Narrative Re-Assessment/Exam: 03/24/21 09:11 I ordered an IV NS 1L bolus, zofran 4mg IV, dilaudid 0.5mg IV, labs, EKG, CXR, and an US of her RUQ. 03/24/21 11:03 Her EKG shows a NSR with no acute changes. Her CXR looks good. Her WBC was elevated at 10.72. Her D-dimer was elevated at 3.98. Her anion gap was el evated at 16.8. Her total bili is elevated at 4.9. Her AST is elevated at 820. Her ALT is elevated at 1183. Her alk phos is elevated at 352. Her troponin is negative. Her CRP is elevated at 3.4. Her HCG is negative. 03/24/21 14:46 Her US shows multiple gallstones within the gallbladder. No gallbladder wall thickening is seen. Slightly prominent common bile duct at 7mm is noted. Other portions of the right upper quadrant abdominal US are unremarkable. I am worried with the elevated liver enzymes and total bili and the fact that her bile duct is slightly prominent that she may have a stone in her ducts. There is an MRI spot available. I have ordered an MRCP. I also ordered a CT angio of her chest. She had CP and shortness of breath when she arrived and her D-dimer was elevated. Her CT angio of her chest shows no PE and nothing acute. Her MRCP shows fluid is seen mostly surrounding the pancreas and correlate if patient has symptoms of pancreatitis. Normal size intrahepatic and extrahepatic biliary ducts are seen. Numerous gallstones are seen within the gallbladder. She feels better now. Her pain is mostly gone. She did not take any pain meds. I feel she did have a gallstone and must have passed it. Her lipase is very high at 20,115. She wants to go but she will need to be admitted and possibly have that gallbladder out. I called Dr Aguilera for surgery and he will see the patient. I also talked with Dr Damon our hospitalist and he agreed to the admission. Departure - Departure Time of Disposition: 15:00 Disposition: Admitted As Inpatient 67 Condition: Serious Clinical Impression: Biliary colic Abdominal pain Qualifiers: Abdominal location: upper abdomen, unspecified Qualified Code(s): R10.10 - Upper abdominal pain, unspecified Cholelithiasis Qualifiers: Cholelithiasis location: gallbladder Cholecystitis presence: without cholecystitis Biliary obstruction: without biliary obstruction Qualified Code(s): K80.20 - Calculus of gallbladder without cholecystitis without obstruction Pancreatitis Qualifiers: Chronicity: acute Pancreatitis type: biliary Acute pancreatitis complication: no infection or necrosis Qualified Code(s): K85.10 - Biliary acute pancreatitis without necrosis or infection Referrals: Kayley Ramos MD [Primary Care Provider] - Forms: ED Department Discharge Sepsis Event Note (ED) - Focused Exam Vital Signs: Vital Signs Temp Pulse Resp BP Pulse Ox 03/24/21 08:48 95.1 F L 68 20 114/73 97 - My Orders Last 24 Hours: My Active Orders 03/24/21 09:00 Cardiac Monitoring [RC] . DIRECTED Sodium Chloride 0.9% [Normal Saline] 1,000 ml IV .BOLUS Sodium Chloride 0.9% [Saline Flush] 10 ml FLUSH ASDIRECTED PRN Peripheral IV Insertion Adult [OM.PC] Stat 03/24/21 09:01 ED Antiemetic Medication Reflex [OM.PC] Stat 03/24/21 09:02 Peripheral IV Care [RC] . DIRECTED 03/24/21 10:43 Sodium Chloride 0.9% [Saline Flush] 10 ml FLUSH ONETIME PRN 03/24/21 10:45 Sodium Chloride 0.9% [Normal Saline] 100 ml IV ASDIRECTED 03/24/21 14:15 Sodium Chloride 0.9% [Normal Saline] 1,000 ml IV ASDIRECTED 03/24/21 14:34 Patient Status [ADT] Routine - Assessment/Plan Last 24 Hours: My Active Orders 03/24/21 09:00 Cardiac Monitoring [RC] . DIRECTED Sodium Chloride 0.9% [Normal Saline] 1,000 ml IV .BOLUS Sodium Chloride 0.9% [Saline Flush] 10 ml FLUSH ASDIRECTED PRN Peripheral IV Insertion Adult [OM.PC] Stat 03/24/21 09:01 ED Antiemetic Medication Reflex [OM.PC] Stat 03/24/21 09:02 Peripheral IV Care [RC] . DIRECTED 03/24/21 10:43 Sodium Chloride 0.9% [Saline Flush] 10 ml FLUSH ONETIME PRN 03/24/21 10:45 Sodium Chloride 0.9% [Normal Saline] 100 ml IV ASDIRECTED 03/24/21 14:15 Sodium Chloride 0.9% [Normal Saline] 1,000 ml IV ASDIRECTED 03/24/21 14:34 Patient Status [ADT] Routine
[2021-03-24] MEDS: Sodium Chloride 0.9% 10 ML Syringe FLUSH PRN (09:32)
[2021-03-24] MEDS ORDERED: Sodium Chloride 0.9% 10 ML Syringe FLUSH PRN ×2 (10:43→14:36)
[2021-03-24] MEDS ORDERED: Iopamidol 755 Mg/ML 100 ML Bottle IVPUSH ONE (10:43)
[2021-03-24] MEDS ORDERED: Sodium Chloride 0.9% 100 ML IV SCH (10:45)
--- NOTE | 2021-03-24 10:57 | US ---
Limited abdominal ultrasound: Multiple real-time images of the upper right abdomen were obtained. Comparison: No prior abdominal imaging is available. Liver shows no focal abnormality. Visualized portions of the pancreas appear within normal limits. Multiple gallstones are seen within the gallbladder. No gallbladder wall thickening is seen. Common bile duct measures about 7 mm which is minimally prominent. Right kidney shows no hydronephrosis or mass. Right kidney has a length of 13.4 cm. Inferior vena cava is patent. Main portal vein shows normal hepatopedal flow. Impression: 1. Multiple gallstones within the gallbladder. No gallbladder wall thickening is seen. Slightly prominent common bile duct at 7 mm is noted. 2. Other portions of the right upper quadrant abdominal ultrasound are unremarkable. Diagnostic code #3
--- NOTE | 2021-03-24 11:01 | CR ---
Chest: PA view of the chest was obtained. Comparison: No prior chest imaging is available. Heart size and mediastinum are normal. Slight density is noted within the right lung base raising the possibility of focal bronchitis or early pneumonia. Lungs otherwise are clear. Bony structures appear unremarkable for the patient's age. Impression: 1. Slight density within the right lung base raising the possibility of mild focal bronchitis or early pneumonia. Please correlate with the patient's symptoms. 2. No additional abnormality is seen. Diagnostic code #3
--- NOTE | 2021-03-24 11:18 | CT ---
CT chest Technique: Multiple axial sections through the chest were obtained. Intravenous contrast was utilized. Study has been performed as a pulmonary angiogram protocol. Comparison: No prior chest CT is available, prior chest x-ray performed earlier on the same day (9:59 AM). Findings: Pulmonary arteries are well opacified. No filling defects are seen to indicate pulmonary embolism. Thoracic aorta shows no aneurysm. Mediastinum shows no adenopathy. No pericardial thickening is seen. Visualized upper abdominal structures show nothing acute. Lung window settings were reviewed. No acute parenchymal finding is seen. Bone window settings were reviewed. No acute osseous abnormality is appreciated. Impression: 1. No findings of pulmonary embolism. 2. Nothing acute is appreciated on CT study of the chest. Diagnostic code #1
--- NOTE | 2021-03-24 12:50 | MR ---
MRI abdomen Technique: Various sequences were obtained in axial and coronal planes. MRCP was also performed. Findings: Normal size of the intrahepatic ducts is seen as well as of the CHD and CBD. Prior ultrasound study of 03/24/21 showed a CBD of 7 mm which is not seen on current study and currently measures 3 mm. No filling defects are seen to indicate retained stone. Numerous gallstones are seen within the gallbladder. Fluid is seen which mostly surrounds the pancreas. Please correlate if patient has symptoms of pancreatitis. Impression: 1. Fluid is seen mostly surrounding the pancreas and correlate if patient has symptoms of pancreatitis. 2. Normal size intrahepatic and extrahepatic biliary ducts are seen. 3. Numerous gallstones are seen within the gallbladder. Diagnostic code #3
[2021-03-24] MEDS ORDERED: Morphine 2 MG/ML SYRINGE IVPUSH PRN (14:36)
[2021-03-24] MEDS ORDERED: Docusate Sodium 100 MG Cap PO PRN (14:36)
[2021-03-24] MEDS ORDERED: Ondansetron 4 MG/2 ML SDV IV PRN (14:36)
--- NOTE | 2021-03-24 14:46 | PCM.HP.2 ---
H&P History of Present Illness - General Date of Service: 03/24/21 Admit Problem/Dx: Admission Diagnosis/Problem Admission Diagnosis/Problem Pancreatitis Source of Information: Patient, Provider History Limitations: Reports: No Limitations - History of Present Illness Initial Comments - Free Text/Narative: Patient is a 25-year-old female with a past medical history as listed below who presents to the emergency department with a chief complaint of abdominal pain with nausea and vomiting. 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 Delivery was uneventful. Delivery was vaginal. She was in her usual state of health up until Wednesday night when eating dinner, she became acutely nauseated and vomited within 10 minutes of consumption of food. She has had intermittent anterior epigastric and right upper quadrant pain since. Sometimes rated a 9 or 10 out of 10 on pain scale. She claims that she had some chills on Wednesday night but did not take an objective temperature. She has been unable to eat anything. She had another episode of vomiting last night. No black or blood noted. No change in bowel habits. She had never felt any of the symptoms before. Today pain became so exquisite that she came to the emergency department for evaluation. She thought it was due to gastroesophageal reflux as this has been a problem for her especially dur ing . She had otherwise denied any lightheadedness/dizziness, chest pain, chest pressure, pleurisy, skin changes or at least noticeable skin changes, neurologic changes or musculoskeletal changes. Upon evaluation in the emergency department work-up was notable for a mixed elevated liver enzyme pattern of moderate severity. She was noted to be mildly jaundiced. Imaging was suggested of multiple small gallstones increasing the possibility of gallstone pancreatitis. Her lipase was greater than 20,000. Initial ultrasound imaging was showing a dilated common bile duct to 7 mm. We were able to get an MRCP during her ER course. It was noted that her common bile duct by the time of that study had decreased to a caliber of 3 mm. There was no common bile duct or cystic duct stone noted. Mild inflammatory changes around the gallbladder. There was inflammation around the head of the pancreas. Patient was referred to the internal medicine service with a surgical consult for elective cholecystectomy in the near future for management of gallstone pancreatitis. By the time that the medicine service was called she had already received 1 L of crystalloid. She has since been placed on 250 cc an hour. The patient denies being in pain currently. A 14 point review of systems was reviewed with the patient entirely and only pertinent for the above information. CODE STATUS: Full code. 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 Exam - Exam Exam: See Below - Vital Signs Vital Signs: Last Vital Signs Temp 95.1 F L 03/24/21 08:48 Pulse 68 03/24/21 08:48 Resp 20 03/24/21 08:48 BP 114/73 03/24/21 08:48 Pulse Ox 97 03/24/21 08:48 Weight: 228 lb 1.6 oz - Exam Physical Exam Comments:: General: Awake and alert, in no apparent distress. Nontoxic-appearing. HEENT: Normocephalic, atraumatic. Extra ocular muscles intact. Pupils equal and reactive to light. Nares are patent. Oropharynx clear without erythema or exudate. Tongue is midline. Scleral icterus noted Neck: Supple without lymphadenopathy. No goiter. Trachea midline. Heart: Regular rate and rhythm. S1 and S2 heard without murmur or extrasystoles. Lungs: Clear to auscultation bilaterally. No wheezing, rales, rhonchi. Abdomen: Soft, mildly tender to deep palpation in the epigastric and right upper quadrant region, nondistended. Positive bowel sounds. No CVA tenderness. No suprapubic tenderness. Extremities: Warm and perfused. No clubbing, cyanosis, or edema. Integument: No obvious rash. No lymphadenopathy. Mild diffuse jaundice Neurologic: Cranial nerves II through XII grossly intact. No obvious gross motor or sensory deficits. Psychiatric: Normal mood and affect. - Patient Data Lab Results Last 24 hrs: Laboratory Results - last 24 hr 03/24/21 03/24/21 03/24/21 Range/Units 09:17 09:17 09:17 WBC 10.72 H (3.98-10.04) K/mm3 RBC 5.18 (3.98-5.22) M/mm3 Hgb 13.2 D (11.2-15.7) gm/dl Hct 41.3 (34.1-44.9) % MCV 79.7 (79.4-94.8) fl MCH 25.5 L (25.6-32.2) pg MCHC 32.0 L (32.2-35.5) g/dl RDW Std Deviation 45.4 (36.4-46.3) fL Plt Count 284 (182-369) K/mm3 MPV 11.5 (9.4-12.3) fl Neut % (Auto) 84.2 H (34.0-71.1) % Lymph % (Auto) 7.3 L (19.3-51.7) % [place] % (Auto) 7.1 (4.7-12.5) % Eos % (Auto) 0.7 (0.7-5.8) Baso % (Auto) 0.3 (0.1-1.2) % Neut # (Auto) 9.04 H (1.56-6.13) K/mm3 Lymph # (Auto) 0.78 L (1.18-3.74) K/mm3 [place] # (Auto) 0.76 H (0.24-0.36) K/mm3 Eos # (Auto) 0.07 (0.04-0.36) K/mm3 Baso # (Auto) 0.03 (0.01-0.08) K/mm3 D-Dimer, Quantitative 3.98 H (0.19-0.50) mg/L Sodium 144 (136-145) mEq/L Potassium 3.8 (3.5-5.1) mEq/L Chloride 106 (98-107) mEq/L Carbon Dioxide 25 (21-32) mEq/L Anion Gap 16.8 H (5-15) BUN 12 (7-18) mg/dL Creatinine 0.8 (0.55-1.02) mg/dL Est Cr Clr Drug Dosing 109.38 mL/min Estimated GFR (MDRD) > 60 (>60) mL/min BUN/Creatinine Ratio 15.0 (14-18) Glucose 88 (70-99) mg/dL Calcium 8.6 (8.5-10.1) mg/dL Total Bilirubin 4.9 H (0.2-1.0) mg/dL AST 820 H (15-37) U/L ALT 1183 H (14-59) U/L Alkaline Phosphatase 352 H (46-116) U/L Troponin I < 0.017 (0.00-0.056) ng/mL C-Reactive Protein 3.4 H* (<1.0) mg/dL Total Protein 7.0 (6.4-8.2) g/dl Albumin 3.0 L (3.4-5.0) g/dl Globulin 4.0 gm/dL Albumin/Globulin Ratio 0.8 L (1-2) Lipase 96908 H (73-393) U/L HCG, Qual (NEGATIVE) SARS-CoV-2 RNA (FRANCIS) (NEGATIVE) 03/24/21 03/24/21 Range/Units 09:17 13:47 WBC (3.98-10.04) K/mm3 RBC (3.98-5.22) M/mm3 Hgb (11.2-15.7) gm/dl Hct (34.1-44.9) % MCV (79.4-94.8) fl MCH (25.6-32.2) pg MCHC (32.2-35.5) g/dl RDW Std Deviation (36.4-46.3) fL Plt Count (182-369) K/mm3 MPV (9.4-12.3) fl Neut % (Auto) (34.0-71.1) % Lymph % (Auto) (19.3-51.7) % [place] % (Auto) (4.7-12.5) % Eos % (Auto) (0.7-5.8) Baso % (Auto) (0.1-1.2) % Neut # (Auto) (1.56-6.13) K/mm3 Lymph # (Auto) (1.18-3.74) K/mm3 [place] # (Auto) (0.24-0.36) K/mm3 Eos # (Auto) (0.04-0.36) K/mm3 Baso # (Auto) (0.01-0.08) K/mm3 D-Dimer, Quantitative (0.19-0.50) mg/L Sodium (136-145) mEq/L Potassium (3.5-5.1) mEq/L Chloride (98-107) mEq/L Carbon Dioxide (21-32) mEq/L Anion Gap (5-15) BUN (7-18) mg/dL Creatinine (0.55-1.02) mg/dL Est Cr Clr Drug Dosing mL/min Estimated GFR (MDRD) (>60) mL/min BUN/Creatinine Ratio (14-18) Glucose (70-99) mg/dL Calcium (8.5-10.1) mg/dL Total Bilirubin (0.2-1.0) mg/dL AST (15-37) U/L ALT (14-59) U/L Alkaline Phosphatase (46-116) U/L Troponin I (0.00-0.056) ng/mL C-Reactive Protein (<1.0) mg/dL Total Protein (6.4-8.2) g/dl Albumin (3.4-5.0) g/dl Globulin gm/dL Albumin/Globulin Ratio (1-2) Lipase (73-393) U/L HCG, Qual Negative (NEGATIVE) SARS-CoV-2 RNA (FRANCIS) Negative (NEGATIVE) Result Diagrams: 03/24/21 09:17 03/24/21 09:17 Imaging Impressions Last 24 hrs: All imaging personally reviewed. Agree with findings. Sepsis Event Note - Focused Exam Vital Signs: Vital Signs Temp Pulse Resp BP Pulse Ox 03/24/21 08:48 95.1 F L 68 20 114/73 97 Problem List Initiated/Reviewed/Updated: Yes Orders Last 24hrs: Active Orders 24 hr Category Date Time Status Patient Status [ADT] Routine ADT 03/24/21 14:32 Ordered Patient Status [ADT] Routine ADT 03/24/21 14:34 Active Cardiac Monitoring [RC] . DIRECTED Care 03/24/21 09:00 Active Intake and Output [RC] QSHIFT Care 03/24/21 14:33 Ordered Notify Provider Consults [RC] ASDIRECTED Care 03/24/21 14:35 Ordered Oxygen Therapy [RC] PRN Care 03/24/21 14:32 Ordered Oxygen Therapy [RC] PRN Care 03/24/21 14:36 Ordered Peripheral IV Care [RC] . DIRECTED Care 03/24/21 09:02 Active Up ad Elo [RC] ASDIRECTED Care 03/24/21 14:32 Ordered VTE/DVT Education [RC] PER UNIT ROUTINE Care 03/24/21 14:32 Ordered VTE/DVT Education [RC] PER UNIT ROUTINE Care 03/24/21 14:36 Ordered Vital Signs [RC] Q4H Care 03/24/21 14:32 Ordered Consult to Physician [CONS] Routine Cons 03/24/21 14:32 Ordered Nothing per Oral Now Diet [DIET] Diet 03/24/21 Dinner Ordered CBC WITH AUTO DIFF [HEME] Routine Lab 03/25/21 06:00 Ordered COMPREHENSIVE METABOLIC PN,CMP [CHEM] Routine Lab 03/25/21 06:00 Ordered Docusate Sodium [Colace] Med 03/24/21 14:36 Ordered 100 mg PO BID PRN Heparin Sodium Med 03/24/21 14:45 Ordered 5,000 units SUBCUT Q12H Morphine Med 03/24/21 14:36 Ordered 2 mg IVPUSH Q2H PRN Ondansetron [Zofran] Med 03/24/21 14:36 Ordered 4 mg IV Q4H PRN Sodium Chloride 0.9% [Normal Saline] 1,000 ml Med 03/24/21 09:00 Active IV .BOLUS Sodium Chloride 0.9% [Normal Saline] 1,000 ml Med 03/24/21 14:15 Active IV ASDIRECTED Sodium Chloride 0.9% [Normal Saline] 100 ml Med 03/24/21 10:45 Active IV ASDIRECTED Sodium Chloride 0.9% [Saline Flush] Med 03/24/21 09:00 Active 10 ml FLUSH ASDIRECTED PRN Sodium Chloride 0.9% [Saline Flush] Med 03/24/21 14:36 Ordered 10 ml FLUSH ASDIRECTED PRN Sodium Chloride 0.9% [Saline Flush] Med 03/24/21 10:43 Active 10 ml FLUSH ONETIME PRN ED Antiemetic Medication Reflex [OM.PC] Stat Oth 03/24/21 09:01 Ordered Peripheral IV Insertion Adult [OM.PC] Stat Oth 03/24/21 09:00 Ordered Saline Lock Insert [OM.PC] Routine Oth 03/24/21 14:36 Ordered Resuscitation Status Routine Resus Stat 03/24/21 14:32 Ordered Medication Orders Sodium Chloride (Normal Saline) 1,000 mls @ 1,000 mls/hr IV .BOLUS SIMIN Last Admin: 03/24/21 09:32 Dose: 1,000 mls/hr Documented by: RANGEL Sodium Chloride (Normal Saline) 100 mls @ 75 mls/hr IV ASDIRECTED SIMIN Last Admin: 03/24/21 11:02 Dose: 75 mls/hr Documented by: TY Sodium Chloride (Normal Saline) 1,000 mls @ 250 mls/hr IV ASDIRECTED SIMIN Last Admin: 03/24/21 14:17 Dose: 250 mls/hr Documented by: RANGEL Sodium Chloride (Sodium Chloride 0.9% 10 Ml Syringe) 10 ml FLUSH ASDIRECTED PRN PRN Reason: Keep Vein Open Last Admin: 03/24/21 09:32 Dose: 10 ml Documented by: RANGEL Sodium Chloride (Sodium Chloride 0.9% 10 Ml Syringe) 10 ml FLUSH ONETIME PRN PRN Reason: IV FLUSH Last Admin: 03/24/21 11:02 Dose: 10 ml Documented by: TY Assessment/Plan Comment:: 25-year-old female who presents to the emergency department with abdominal pain, nausea/vomiting and found to have gallstone pancreatitis, with the likelihood of recent passage of small stone. 1. Gallstone pancreatitis. 2. Mixed elevated liver enzyme pattern. 3. 2 weeks . Plan: Admit to the hospitalist service with a surgical consult for elective cholecystectomy in the near future once inflammation has subsided. Proceed with high-volume crystalloid at 250 cc an hour for now. Remain n.p.o. Depending on symptoms will advance diet in the morning. Recheck chemistries in the morning. Pain control as necessary with morphine. Surgical plans as per the surgery service. We will be in touch with them. Appreciate their services and input. CODE STATUS: Full code. DVT prophylaxis with heparin subcu. - Mortality Measure Prognosis:: Good
--- NOTE | 2021-03-24 17:12 | PCM.CONS ---
H&P History of Present Illness - General Date of Service: 03/24/21 Admit Problem/Dx: Admission Diagnosis/Problem Admission Diagnosis/Problem Pancreatitis Source of Information: Patient History Limitations: Reports: No Limitations - History of Present Illness Initial Comments - Free Text/Narative: Ms. Rosales started to have upper abdominal pain associated wit nausea and vomi ting on Thursday 03/22. That night she could not eat anything due to emesis. Over the ensuing couple of days, the pain worsened and migrated to the right upper abdomen. The pain was severe, radiating to the back, nothing made it better. No fevers. Patient has some chills at home. She thought it was heartburn but as it worsened she came to the ER. SHe is 2 weeks post with uncomplicated delivery. She is otherwise healthy. In the ER, CXR, CTA, were normal. RUQ US showed cholelithiasis. MRI abdomen showed edematous pancreas without CBD stone. Lipase was 20,000, Tbili was 4.9. Now her pain is much better and she has improved significantly. Onset of Symptoms: Reports: Gradual Duration of Symptoms: Reports: Day(s): (2) Location: Reports: Abdomen Quality: Reports: Sharp Severity: Severe Worsens with: Reports: None Context: Reports: Other (Pancreatitis) Epigastric Pain Score (Numeric/FACES): 8 - Related Data Allergies/Adverse Reactions: Allergies Allergy/AdvReac Type Severity Reaction Status Date / Time No Known Allergies Allergy Verified 03/24/21 08:53 Home Medications: Home Meds No122/Iron/Folic Acid [ Multi Tablet] 1 each PO DAILY 04/02/19 [History] Docusate Sodium [Colace] 100 mg PO BID PRN cap 03/10/21 [Rx] Past Medical History - Past Health History Medical/Surgical History: Denies Medical/Surgical History Gastrointestinal History: Reports: GERD, Pancreatitis Genitourinary History: Reports: Renal Calculus 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: - Past Surgical History Other GI Surgeries/Procedures: gallstones passed today, possible pancreatitis admisssion today Musculoskeletal Surgical History: Reports: Other (See Below) Other Musculoskeletal Surgeries/Procedures:: knee surgery 2014 Social & Family History - Family History Family Medical History: No Pertinent Family History HEENT: Reports: None - Tobacco Use Tobacco Use Status *Q: Never Tobacco User Second Hand Smoke Exposure: No - Caffeine Use Caffeine Use: Reports: Coffee - Alcohol Use Days Per Week of Alcohol Use: 0 - Recreational Drug Use Recreational Drug Use: No H&P Review of Systems - Review of Systems: Review Of Systems: See Below General: Reports: No Symptoms HEENT: Reports: No Symptoms Pulmonary: Reports: No Symptoms Cardiovascular: Reports: No Symptoms Gastrointestinal: Reports: Abdominal Pain Genitourinary: Reports: No Symptoms Musculoskeletal: Reports: No Symptoms Skin: Reports: No Symptoms Psychiatric: Reports: No Symptoms Neurological: Reports: No Symptoms Exam - Exam Exam: See Below - Vital Signs Vital Signs: Last Vital Signs Temp 97.9 F 03/24/21 15:03 Pulse 72 03/24/21 15:03 Resp 18 03/24/21 15:03 BP 114/63 03/24/21 15:03 Pulse Ox 96 03/24/21 15:03 Weight: 103.419 kg - Exam General: Alert, Oriented, Cooperative Lungs: Clear to Auscultation, Normal Respiratory Effort Cardiovascular: Regular Rate, Regular Rhythm, Normal S1, Normal S2 GI/Abdominal Exam: Soft, Tender (mildly tender in the rpigastrium, moderate RUQ tenderness.) - Patient Data Lab Results Last 24 hrs: Laboratory Results - last 24 hr 03/24/21 03/24/21 03/24/21 Range/Units 09:17 09:17 09:17 WBC 10.72 H (3.98-10.04) K/mm3 RBC 5.18 (3.98-5.22) M/mm3 Hgb 13.2 D (11.2-15.7) gm/dl Hct 41.3 (34.1-44.9) % MCV 79.7 (79.4-94.8) fl MCH 25.5 L (25.6-32.2) pg MCHC 32.0 L (32.2-35.5) g/dl RDW Std Deviation 45.4 (36.4-46.3) fL Plt Count 284 (182-369) K/mm3 MPV 11.5 (9.4-12.3) fl Neut % (Auto) 84.2 H (34.0-71.1) % Lymph % (Auto) 7.3 L (19.3-51.7) % [place] % (Auto) 7.1 (4.7-12.5) % Eos % (Auto) 0.7 (0.7-5.8) Baso % (Auto) 0.3 (0.1-1.2) % Neut # (Auto) 9.04 H (1.56-6.13) K/mm3 Lymph # (Auto) 0.78 L (1.18-3.74) K/mm3 [place] # (Auto) 0.76 H (0.24-0.36) K/mm3 Eos # (Auto) 0.07 (0.04-0.36) K/mm3 Baso # (Auto) 0.03 (0.01-0.08) K/mm3 D-Dimer, Quantitative 3.98 H (0.19-0.50) mg/L Sodium 144 (136-145) mEq/L Potassium 3.8 (3.5-5.1) mEq/L Chloride 106 (98-107) mEq/L Carbon Dioxide 25 (21-32) mEq/L Anion Gap 16.8 H (5-15) BUN 12 (7-18) mg/dL Creatinine 0.8 (0.55-1.02) mg/dL Est Cr Clr Drug Dosing 109.38 mL/min Estimated GFR (MDRD) > 60 (>60) mL/min BUN/Creatinine Ratio 15.0 (14-18) Glucose 88 (70-99) mg/dL Calcium 8.6 (8.5-10.1) mg/dL Total Bilirubin 4.9 H (0.2-1.0) mg/dL AST 820 H (15-37) U/L ALT 1183 H (14-59) U/L Alkaline Phosphatase 352 H (46-116) U/L Troponin I < 0.017 (0.00-0.056) ng/mL C-Reactive Protein 3.4 H* (<1.0) mg/dL Total Protein 7.0 (6.4-8.2) g/dl Albumin 3.0 L (3.4-5.0) g/dl Globulin 4.0 gm/dL Albumin/Globulin Ratio 0.8 L (1-2) Lipase 20378 H (73-393) U/L HCG, Qual (NEGATIVE) SARS-CoV-2 RNA (FRANCIS) (NEGATIVE) 12/13/21 12/13/21 Range/Units 09:17 13:47 WBC (3.98-10.04) K/mm3 RBC (3.98-5.22) M/mm3 Hgb (11.2-15.7) gm/dl Hct (34.1-44.9) % MCV (79.4-94.8) fl MCH (25.6-32.2) pg MCHC (32.2-35.5) g/dl RDW Std Deviation (36.4-46.3) fL Plt Count (182-369) K/mm3 MPV (9.4-12.3) fl Neut % (Auto) (34.0-71.1) % Lymph % (Auto) (19.3-51.7) % [place] % (Auto) (4.7-12.5) % Eos % (Auto) (0.7-5.8) Baso % (Auto) (0.1-1.2) % Neut # (Auto) (1.56-6.13) K/mm3 Lymph # (Auto) (1.18-3.74) K/mm3 [place] # (Auto) (0.24-0.36) K/mm3 Eos # (Auto) (0.04-0.36) K/mm3 Baso # (Auto) (0.01-0.08) K/mm3 D-Dimer, Quantitative (0.19-0.50) mg/L Sodium (136-145) mEq/L Potassium (3.5-5.1) mEq/L Chloride (98-107) mEq/L Carbon Dioxide (21-32) mEq/L Anion Gap (5-15) BUN (7-18) mg/dL Creatinine (0.55-1.02) mg/dL Est Cr Clr Drug Dosing mL/min Estimated GFR (MDRD) (>60) mL/min BUN/Creatinine Ratio (14-18) Glucose (70-99) mg/dL Calcium (8.5-10.1) mg/dL Total Bilirubin (0.2-1.0) mg/dL AST (15-37) U/L ALT (14-59) U/L Alkaline Phosphatase (46-116) U/L Troponin I (0.00-0.056) ng/mL C-Reactive Protein (<1.0) mg/dL Total Protein (6.4-8.2) g/dl Albumin (3.4-5.0) g/dl Globulin gm/dL Albumin/Globulin Ratio (1-2) Lipase (73-393) U/L HCG, Qual Negative (NEGATIVE) SARS-CoV-2 RNA (FRANCIS) Negative (NEGATIVE) Result Diagrams: 03/24/21 09:17 03/24/21 09:17 Sepsis Event Note - Evaluation Sepsis Screening Result: No Definite Risk - Focused Exam Vital Signs: Vital Signs Temp Temp Pulse Pulse Resp BP BP 03/24/21 15:03 97.9 F 72 18 114/63 03/24/21 14:32 03/24/21 08:48 95.1 F L 68 20 114/73 Pulse Ox Pulse Ox 03/24/21 15:03 96 03/24/21 14:32 98 03/24/21 08:48 97 Consult PN Assessment/Plan Procedures: Procedures EVAL AMNIOTIC FLUID PROTEIN (04/02/19) NON-STRESS TEST (04/02/19) STREP B DNA AMP PROBE (04/02/19) URINALYSIS AUTO W/SCOPE (04/02/19) URINE CULTURE/COLONY COUNT (04/02/19) Problem List Initiated/Reviewed/Updated: No Plan: Patient has gallstone pancreatitis. MRCP revealed no CBD stone as it has probably passed. The patient is clinically improving. Plan is to do cholecystectomy prior to discharge but when epigastric pain has resolved. Recs: - Keep NPO with IVF for hydration - Check CBC and CMP tomorrow - I will re-examine her tomorrow AM to see if she is a candidate for surgery
[2021-03-24] MEDS: Heparin Sodium 5,000 Units/ML Vial SUBCUT SCH (18:07)
[2021-03-24] MEDS: Sodium Chloride 0.9% 1,000 ML IV SCH ×2 (18:20→22:21)
[2021-03-25] MEDS: Sodium Chloride 0.9% 1,000 ML IV SCH (02:05)
[2021-03-25] MEDS ORDERED: 50% Dextrose in Water 50 ML Syringe ONE (07:36)
[2021-03-25] MEDS ORDERED: 50% Dextrose in Water 50 ML Syringe IVPUSH PRN (07:40)
--- NOTE | 2021-03-25 08:10 | PCM.PN ---
- General Info Date of Service: 03/25/21 Admission Dx/Problem (Free Text): Admission Diagnosis/Problem Admission Diagnosis/Problem Pancreatitis Subjective Update: Patient is 100% better. Her epigastric pain has resolved. He LFTs are decreasing. Tbili is now normal. Functional Status: Reports: Pain Controlled, Tolerating Diet, Ambulating, Ur inating - Review of Systems General: Reports: No Symptoms HEENT: Reports: No Symptoms Pulmonary: Reports: No Symptoms Cardiovascular: Reports: No Symptoms Gastrointestinal: Reports: Abdominal Pain (epigastric and RUQ) Genitourinary: Reports: No Symptoms Musculoskeletal: Reports: No Symptoms Skin: Reports: No Symptoms - Patient Data Vitals - Most Recent: Last Vital Signs Temp 98.1 F 03/24/21 23:48 Pulse 73 03/24/21 23:48 Resp 14 03/24/21 23:48 BP 101/63 03/24/21 23:48 Pulse Ox 95 03/24/21 23:48 Weight - Most Recent: 105.687 kg I&O - Last 24 Hours: Intake & Output 03/24/21 03/25/21 03/25/21 22:59 06:59 14:59 Intake Total 1000 2000 Output Total 450 630 Balance 550 1370 Lab Results Last 24 Hours: Laboratory Results - last 24 hr 03/24/21 03/24/21 03/24/21 Range/Units 09:17 09:17 09:17 WBC 10.72 H (3.98-10.04) K/mm3 RBC 5.18 (3.98-5.22) M/mm3 Hgb 13.2 D (11.2-15.7) gm/dl Hct 41.3 (34.1-44.9) % MCV 79.7 (79.4-94.8) fl MCH 25.5 L (25.6-32.2) pg MCHC 32.0 L (32.2-35.5) g/dl RDW Std Deviation 45.4 (36.4-46.3) fL Plt Count 284 (182-369) K/mm3 MPV 11.5 (9.4-12.3) fl Neut % (Auto) 84.2 H (34.0-71.1) % Lymph % (Auto) 7.3 L (19.3-51.7) % [place] % (Auto) 7.1 (4.7-12.5) % Eos % (Auto) 0.7 (0.7-5.8) Baso % (Auto) 0.3 (0.1-1.2) % Neut # (Auto) 9.04 H (1.56-6.13) K/mm3 Lymph # (Auto) 0.78 L (1.18-3.74) K/mm3 [place] # (Auto) 0.76 H (0.24-0.36) K/mm3 Eos # (Auto) 0.07 (0.04-0.36) K/mm3 Baso # (Auto) 0.03 (0.01-0.08) K/mm3 D-Dimer, Quantitative 3.98 H (0.19-0.50) mg/L Sodium 144 (136-145) mEq/L Potassium 3.8 (3.5-5.1) mEq/L Chloride 106 (98-107) mEq/L Carbon Dioxide 25 (21-32) mEq/L Anion Gap 16.8 H (5-15) BUN 12 (7-18) mg/dL Creatinine 0.8 (0.55-1.02) mg/dL Est Cr Clr Drug Dosing 109.38 mL/min Estimated GFR (MDRD) > 60 (>60) mL/min BUN/Creatinine Ratio 15.0 (14-18) Glucose 88 (70-99) mg/dL Calcium 8.6 (8.5-10.1) mg/dL Total Bilirubin 4.9 H (0.2-1.0) mg/dL AST 820 H (15-37) U/L ALT 1183 H (14-59) U/L Alkaline Phosphatase 352 H (46-116) U/L Troponin I < 0.017 (0.00-0.056) ng/mL C-Reactive Protein 3.4 H* (<1.0) mg/dL Total Protein 7.0 (6.4-8.2) g/dl Albumin 3.0 L (3.4-5.0) g/dl Globulin 4.0 gm/dL Albumin/Globulin Ratio 0.8 L (1-2) Lipase 96441 H (73-393) U/L HCG, Qual (NEGATIVE) SARS-CoV-2 RNA (FRANCIS) (NEGATIVE) 1203/24/21 03/25/21 Range/Units 09:17 13:47 05:50 WBC 8.01 (3.98-10.04) K/mm3 RBC 4.25 (3.98-5.22) M/mm3 Hgb 10.8 L D (11.2-15.7) gm/dl Hct 35.1 (34.1-44.9) % MCV 82.6 (79.4-94.8) fl MCH 25.4 L (25.6-32.2) pg MCHC 30.8 L (32.2-35.5) g/dl RDW Std Deviation 47.3 H (36.4-46.3) fL Plt Count 213 (182-369) K/mm3 MPV 11.2 (9.4-12.3) fl Neut % (Auto) 75.7 H (34.0-71.1) % Lymph % (Auto) 16.6 L (19.3-51.7) % [place] % (Auto) 6.2 (4.7-12.5) % Eos % (Auto) 0.7 (0.7-5.8) Baso % (Auto) 0.4 (0.1-1.2) % Neut # (Auto) 6.06 (1.56-6.13) K/mm3 Lymph # (Auto) 1.33 (1.18-3.74) K/mm3 [place] # (Auto) 0.50 H (0.24-0.36) K/mm3 Eos # (Auto) 0.06 (0.04-0.36) K/mm3 Baso # (Auto) 0.03 (0.01-0.08) K/mm3 D-Dimer, Quantitative (0.19-0.50) mg/L Sodium (136-145) mEq/L Potassium (3.5-5.1) mEq/L Chloride (98-107) mEq/L Carbon Dioxide (21-32) mEq/L Anion Gap (5-15) BUN (7-18) mg/dL Creatinine (0.55-1.02) mg/dL Est Cr Clr Drug Dosing mL/min Estimated GFR (MDRD) (>60) mL/min BUN/Creatinine Ratio (14-18) Glucose (70-99) mg/dL Calcium (8.5-10.1) mg/dL Total Bilirubin (0.2-1.0) mg/dL AST (15-37) U/L ALT (14-59) U/L Alkaline Phosphatase (46-116) U/L Troponin I (0.00-0.056) ng/mL C-Reactive Protein (<1.0) mg/dL Total Protein (6.4-8.2) g/dl Albumin (3.4-5.0) g/dl Globulin gm/dL Albumin/Globulin Ratio (1-2) Lipase (73-393) U/L HCG, Qual Negative (NEGATIVE) SARS-CoV-2 RNA (FRANCIS) Negative (NEGATIVE) 03/25/21 Range/Units 05:50 WBC (3.98-10.04) K/mm3 RBC (3.98-5.22) M/mm3 Hgb (11.2-15.7) gm/dl Hct (34.1-44.9) % MCV (79.4-94.8) fl MCH (25.6-32.2) pg MCHC (32.2-35.5) g/dl RDW Std Deviation (36.4-46.3) fL Plt Count (182-369) K/mm3 MPV (9.4-12.3) fl Neut % (Auto) (34.0-71.1) % Lymph % (Auto) (19.3-51.7) % [place] % (Auto) (4.7-12.5) % Eos % (Auto) (0.7-5.8) Baso % (Auto) (0.1-1.2) % Neut # (Auto) (1.56-6.13) K/mm3 Lymph # (Auto) (1.18-3.74) K/mm3 [place] # (Auto) (0.24-0.36) K/mm3 Eos # (Auto) (0.04-0.36) K/mm3 Baso # (Auto) (0.01-0.08) K/mm3 D-Dimer, Quantitative (0.19-0.50) mg/L Sodium 143 (136-145) mEq/L Potassium 3.9 (3.5-5.1) mEq/L Chloride 111 H (98-107) mEq/L Carbon Dioxide 18 L (21-32) mEq/L Anion Gap 17.9 H (5-15) BUN 15 (7-18) mg/dL Creatinine 0.8 (0.55-1.02) mg/dL Est Cr Clr Drug Dosing 109.38 mL/min Estimated GFR (MDRD) > 60 (>60) mL/min BUN/Creatinine Ratio 18.8 H (14-18) Glucose 48 L* (70-99) mg/dL Calcium 7.5 L (8.5-10.1) mg/dL Total Bilirubin 0.9 (0.2-1.0) mg/dL AST 253 H (15-37) U/L ALT 644 H (14-59) U/L Alkaline Phosphatase 264 H (46-116) U/L Troponin I (0.00-0.056) ng/mL C-Reactive Protein (<1.0) mg/dL Total Protein 5.3 L (6.4-8.2) g/dl Albumin 2.4 L (3.4-5.0) g/dl Globulin 2.9 gm/dL Albumin/Globulin Ratio 0.8 L (1-2) Lipase 1132 H (73-393) U/L HCG, Qual (NEGATIVE) SARS-CoV-2 RNA (FRANCIS) (NEGATIVE) Med Orders - Current: Current Medications Dextrose/Water (50% Dextrose In Water 50 Ml Syringe) 50 ml IVPUSH ASDIRECTED PRN PRN Reason: Blood Glucose Docusate Sodium (Docusate Sodium 100 Mg Cap) 100 mg PO BID PRN PRN Reason: Constipation Heparin Sodium (Porcine) (Heparin Sodium 5,000 Units/Ml Vial) 5,000 units SUBCUT Q12H [facility] Last Admin: 03/24/21 18:07 Dose: 5,000 units Documented by: Sodium Chloride (Normal Saline) 1,000 mls @ 250 mls/hr IV ASDIRECTED [facility] Last Admin: 03/25/21 02:05 Dose: 250 mls/hr Documented by: Morphine Sulfate (Morphine 2 Mg/Ml Syringe) 2 mg IVPUSH Q2H PRN PRN Reason: Pain (severe 7-10) Stop: 03/25/21 14:37 Ondansetron HCl (Ondansetron 4 Mg/2 Ml Sdv) 4 mg IV Q4H PRN PRN Reason: Nausea/Vomiting Sodium Chloride (Sodium Chloride 0.9% 10 Ml Syringe) 10 ml FLUSH ASDIRECTED PRN PRN Reason: Keep Vein Open Last Admin: 03/24/21 09:32 Dose: 10 ml Documented by: Sodium Chloride (Sodium Chloride 0.9% 10 Ml Syringe) 10 ml FLUSH ONETIME PRN PRN Reason: IV FLUSH Last Admin: 03/24/21 11:02 Dose: 10 ml Documented by: Sodium Chloride (Sodium Chloride 0.9% 10 Ml Syringe) 10 ml FLUSH ASDIRECTED PRN PRN Reason: Keep Vein Open Discontinued Medications Dextrose/Water (50% Dextrose In Water 50 Ml Syringe) Confirm Administered Dose 50 ml .ROUTE .STK-MED ONE Stop: 03/25/21 07:37 Last Admin: 03/25/21 07:38 Dose: 50 ml Documented by: Hydromorphone HCl (Hydromorphone 0.5 Mg/0.5 Ml Syringe) 0.5 mg IVPUSH ONETIME ONE Stop: 03/24/21 09:04 Last Admin: 03/24/21 15:36 Dose: Not Given Documented by: Sodium Chloride (Normal Saline) 1,000 mls @ 1,000 mls/hr IV .BOLUS SIMIN Last Admin: 03/24/21 09:32 Dose: 1,000 mls/hr Documented by: Sodium Chloride (Normal Saline) 100 mls @ 75 mls/hr IV ASDIRECTED SIMIN Last Admin: 03/24/21 11:02 Dose: 75 mls/hr Documented by: Sodium Chloride (Normal Saline) 1,000 mls @ 250 mls/hr IV ASDIRECTED [facility] Last Admin: 03/24/21 14:17 Dose: 250 mls/hr Documented by: Iopamidol (Iopamidol 755 Mg/Ml 100 Ml Bottle) 100 ml IVPUSH ONETIME ONE Stop: 03/24/21 10:44 Last Admin: 03/24/21 11:02 Dose: 100 ml Documented by: Ondansetron HCl (Ondansetron 4 Mg/2 Ml Sdv) 4 mg IVPUSH ONETIME ONE Stop: 03/24/21 09:01 Last Admin: 03/24/21 09:31 Dose: 4 mg Documented by: - Exam General: Alert, Oriented, Cooperative Lungs: Clear to Auscultation, Normal Respiratory Effort Cardiovascular: Regular Rate, Regular Rhythm, No Murmurs GI/Abdominal Exam: Soft, No Organomegaly, No Distention, Tender (RUQ) - Patient Data Lab Results Last 24 hrs: Laboratory Results - last 24 hr 03/24/21 03/24/21 03/24/21 Range/Units 09:17 09:17 09:17 WBC 10.72 H (3.98-10.04) K/mm3 RBC 5.18 (3.98-5.22) M/mm3 Hgb 13.2 D (11.2-15.7) gm/dl Hct 41.3 (34.1-44.9) % MCV 79.7 (79.4-94.8) fl MCH 25.5 L (25.6-32.2) pg MCHC 32.0 L (32.2-35.5) g/dl RDW Std Deviation 45.4 (36.4-46.3) fL Plt Count 284 (182-369) K/mm3 MPV 11.5 (9.4-12.3) fl Neut % (Auto) 84.2 H (34.0-71.1) % Lymph % (Auto) 7.3 L (19.3-51.7) % [place] % (Auto) 7.1 (4.7-12.5) % Eos % (Auto) 0.7 (0.7-5.8) Baso % (Auto) 0.3 (0.1-1.2) % Neut # (Auto) 9.04 H (1.56-6.13) K/mm3 Lymph # (Auto) 0.78 L (1.18-3.74) K/mm3 [place] # (Auto) 0.76 H (0.24-0.36) K/mm3 Eos # (Auto) 0.07 (0.04-0.36) K/mm3 Baso # (Auto) 0.03 (0.01-0.08) K/mm3 D-Dimer, Quantitative 3.98 H (0.19-0.50) mg/L Sodium 144 (136-145) mEq/L Potassium 3.8 (3.5-5.1) mEq/L Chloride 106 (98-107) mEq/L Carbon Dioxide 25 (21-32) mEq/L Anion Gap 16.8 H (5-15) BUN 12 (7-18) mg/dL Creatinine 0.8 (0.55-1.02) mg/dL Est Cr Clr Drug Dosing 109.38 mL/min Estimated GFR (MDRD) > 60 (>60) mL/min BUN/Creatinine Ratio 15.0 (14-18) Glucose 88 (70-99) mg/dL Calcium 8.6 (8.5-10.1) mg/dL Total Bilirubin 4.9 H (0.2-1.0) mg/dL AST 820 H (15-37) U/L ALT 1183 H (14-59) U/L Alkaline Phosphatase 352 H (46-116) U/L Troponin I < 0.017 (0.00-0.056) ng/mL C-Reactive Protein 3.4 H* (<1.0) mg/dL Total Protein 7.0 (6.4-8.2) g/dl Albumin 3.0 L (3.4-5.0) g/dl Globulin 4.0 gm/dL Albumin/Globulin Ratio 0.8 L (1-2) Lipase 76750 H (73-393) U/L HCG, Qual (NEGATIVE) SARS-CoV-2 RNA (FRANCIS) (NEGATIVE) 03/24/21 03/24/21 03/25/21 Range/Units 09:17 13:47 05:50 WBC 8.01 (3.98-10.04) K/mm3 RBC 4.25 (3.98-5.22) M/mm3 Hgb 10.8 L D (11.2-15.7) gm/dl Hct 35.1 (34.1-44.9) % MCV 82.6 (79.4-94.8) fl MCH 25.4 L (25.6-32.2) pg MCHC 30.8 L (32.2-35.5) g/dl RDW Std Deviation 47.3 H (36.4-46.3) fL Plt Count 213 (182-369) K/mm3 MPV 11.2 (9.4-12.3) fl Neut % (Auto) 75.7 H (34.0-71.1) % Lymph % (Auto) 16.6 L (19.3-51.7) % [place] % (Auto) 6.2 (4.7-12.5) % Eos % (Auto) 0.7 (0.7-5.8) Baso % (Auto) 0.4 (0.1-1.2) % Neut # (Auto) 6.06 (1.56-6.13) K/mm3 Lymph # (Auto) 1.33 (1.18-3.74) K/mm3 [place] # (Auto) 0.50 H (0.24-0.36) K/mm3 Eos # (Auto) 0.06 (0.04-0.36) K/mm3 Baso # (Auto) 0.03 (0.01-0.08) K/mm3 D-Dimer, Quantitative (0.19-0.50) mg/L Sodium (136-145) mEq/L Potassium (3.5-5.1) mEq/L Chloride (98-107) mEq/L Carbon Dioxide (21-32) mEq/L Anion Gap (5-15) BUN (7-18) mg/dL Creatinine (0.55-1.02) mg/dL Est Cr Clr Drug Dosing mL/min Estimated GFR (MDRD) (>60) mL/min BUN/Creatinine Ratio (14-18) Glucose (70-99) mg/dL Calcium (8.5-10.1) mg/dL Total Bilirubin (0.2-1.0) mg/dL AST (15-37) U/L ALT (14-59) U/L Alkaline Phosphatase (46-116) U/L Troponin I (0.00-0.056) ng/mL C-Reactive Protein (<1.0) mg/dL Total Protein (6.4-8.2) g/dl Albumin (3.4-5.0) g/dl Globulin gm/dL Albumin/Globulin Ratio (1-2) Lipase (73-393) U/L HCG, Qual Negative (NEGATIVE) SARS-CoV-2 RNA (FRANCIS) Negative (NEGATIVE) 03/25/21 Range/Units 05:50 WBC (3.98-10.04) K/mm3 RBC (3.98-5.22) M/mm3 Hgb (11.2-15.7) gm/dl Hct (34.1-44.9) % MCV (79.4-94.8) fl MCH (25.6-32.2) pg MCHC (32.2-35.5) g/dl RDW Std Deviation (36.4-46.3) fL Plt Count (182-369) K/mm3 MPV (9.4-12.3) fl Neut % (Auto) (34.0-71.1) % Lymph % (Auto) (19.3-51.7) % [place] % (Auto) (4.7-12.5) % Eos % (Auto) (0.7-5.8) Baso % (Auto) (0.1-1.2) % Neut # (Auto) (1.56-6.13) K/mm3 Lymph # (Auto) (1.18-3.74) K/mm3 [place] # (Auto) (0.24-0.36) K/mm3 Eos # (Auto) (0.04-0.36) K/mm3 Baso # (Auto) (0.01-0.08) K/mm3 D-Dimer, Quantitative (0.19-0.50) mg/L Sodium 143 (136-145) mEq/L Potassium 3.9 (3.5-5.1) mEq/L Chloride 111 H (98-107) mEq/L Carbon Dioxide 18 L (21-32) mEq/L Anion Gap 17.9 H (5-15) BUN 15 (7-18) mg/dL Creatinine 0.8 (0.55-1.02) mg/dL Est Cr Clr Drug Dosing 109.38 mL/min Estimated GFR (MDRD) > 60 (>60) mL/min BUN/Creatinine Ratio 18.8 H (14-18) Glucose 48 L* (70-99) mg/dL Calcium 7.5 L (8.5-10.1) mg/dL Total Bilirubin 0.9 (0.2-1.0) mg/dL AST 253 H (15-37) U/L ALT 644 H (14-59) U/L Alkaline Phosphatase 264 H (46-116) U/L Troponin I (0.00-0.056) ng/mL C-Reactive Protein (<1.0) mg/dL Total Protein 5.3 L (6.4-8.2) g/dl Albumin 2.4 L (3.4-5.0) g/dl Globulin 2.9 gm/dL Albumin/Globulin Ratio 0.8 L (1-2) Lipase 1132 H (73-393) U/L HCG, Qual (NEGATIVE) SARS-CoV-2 RNA (FRANCIS) (NEGATIVE) Result Diagrams: 03/25/21 05:50 03/25/21 05:50 Sepsis Event Note - Evaluation Sepsis Screening Result: No Definite Risk - Focused Exam Vital Signs: Vital Signs Temp Pulse Resp BP Pulse Ox 03/24/21 23:48 98.1 F 73 14 101/63 95 03/24/21 21:04 97.5 F 72 14 102/58 L 95 - Problem List Review Problem List Initiated/Reviewed/Updated: No - Assessment Assessment:: HD1 with gallstone pancreatitis. Stone has passed, epigastric pain has resolved. LFTs and lipase are trending down. - Plan Plan:: - Her epigastric pain has resolved. Labs trending down. We will plan to proceed with surgery today. Lap cholecystectomy, possible open. Time at 1300 hrs. I indicated this to the patient and will return to fully discuss risks, benefits and alternatives for the surgery this afternoon.
[2021-03-25] MEDS: Heparin Sodium 5,000 Units/ML Vial SUBCUT SCH ×2 (08:39→22:33)
--- NOTE | 2021-03-25 08:40 | PCM.PN ---
- General Info Date of Service: 03/25/21 Admission Dx/Problem (Free Text): Admission Diagnosis/Problem Admission Diagnosis/Problem Pancreatitis Subjective Update: No acute events overnight. No new nursing concerns other than hypoglycemia. Significant decrease in liver enzymes. Total bilirubin now normal. Lipase down to 1000. Pain is totally resolved. Planning for elective cholecystectomy early this afternoon. - Patient Data Vitals - Most Recent: Last Vital Signs Temp 97.9 F 03/25/21 08:20 Pulse 86 03/25/21 08:20 Resp 16 03/25/21 08:20 BP 106/60 03/25/21 08:20 Pulse Ox 95 03/25/21 08:20 Weight - Most Recent: 233 lb I&O - Last 24 Hours: Intake & Output 03/24/21 03/25/21 03/25/21 22:59 06:59 14:59 Intake Total 1000 2000 Output Total 450 630 Balance 550 1370 Lab Results Last 24 Hours: Laboratory Results - last 24 hr 03/24/21 03/24/21 03/24/21 Range/Units 09:17 09:17 09:17 WBC 10.72 H (3.98-10.04) K/mm3 RBC 5.18 (3.98-5.22) M/mm3 Hgb 13.2 D (11.2-15.7) gm/dl Hct 41.3 (34.1-44.9) % MCV 79.7 (79.4-94.8) fl MCH 25.5 L (25.6-32.2) pg MCHC 32.0 L (32.2-35.5) g/dl RDW Std Deviation 45.4 (36.4-46.3) fL Plt Count 284 (182-369) K/mm3 MPV 11.5 (9.4-12.3) fl Neut % (Auto) 84.2 H (34.0-71.1) % Lymph % (Auto) 7.3 L (19.3-51.7) % Hart % (Auto) 7.1 (4.7-12.5) % Eos % (Auto) 0.7 (0.7-5.8) Baso % (Auto) 0.3 (0.1-1.2) % Neut # (Auto) 9.04 H (1.56-6.13) K/mm3 Lymph # (Auto) 0.78 L (1.18-3.74) K/mm3 Hart # (Auto) 0.76 H (0.24-0.36) K/mm3 Eos # (Auto) 0.07 (0.04-0.36) K/mm3 Baso # (Auto) 0.03 (0.01-0.08) K/mm3 D-Dimer, Quantitative 3.98 H (0.19-0.50) mg/L Sodium 144 (136-145) mEq/L Potassium 3.8 (3.5-5.1) mEq/L Chloride 106 (98-107) mEq/L Carbon Dioxide 25 (21-32) mEq/L Anion Gap 16.8 H (5-15) BUN 12 (7-18) mg/dL Creatinine 0.8 (0.55-1.02) mg/dL Est Cr Clr Drug Dosing 109.38 mL/min Estimated GFR (MDRD) > 60 (>60) mL/min BUN/Creatinine Ratio 15.0 (14-18) Glucose 88 (70-99) mg/dL POC Glucose (70-99) mg/dL Calcium 8.6 (8.5-10.1) mg/dL Total Bilirubin 4.9 H (0.2-1.0) mg/dL AST 820 H (15-37) U/L ALT 1183 H (14-59) U/L Alkaline Phosphatase 352 H (46-116) U/L Troponin I < 0.017 (0.00-0.056) ng/mL C-Reactive Protein 3.4 H* (<1.0) mg/dL Total Protein 7.0 (6.4-8.2) g/dl Albumin 3.0 L (3.4-5.0) g/dl Globulin 4.0 gm/dL Albumin/Globulin Ratio 0.8 L (1-2) Lipase 66302 H (73-393) U/L HCG, Qual (NEGATIVE) SARS-CoV-2 RNA (FRANCIS) (NEGATIVE) 03/24/21 03/24/21 03/25/21 Range/Units 09:17 13:47 05:50 WBC 8.01 (3.98-10.04) K/mm3 RBC 4.25 (3.98-5.22) M/mm3 Hgb 10.8 L D (11.2-15.7) gm/dl Hct 35.1 (34.1-44.9) % MCV 82.6 (79.4-94.8) fl MCH 25.4 L (25.6-32.2) pg MCHC 30.8 L (32.2-35.5) g/dl RDW Std Deviation 47.3 H (36.4-46.3) fL Plt Count 213 (182-369) K/mm3 MPV 11.2 (9.4-12.3) fl Neut % (Auto) 75.7 H (34.0-71.1) % Lymph % (Auto) 16.6 L (19.3-51.7) % Hart % (Auto) 6.2 (4.7-12.5) % Eos % (Auto) 0.7 (0.7-5.8) Baso % (Auto) 0.4 (0.1-1.2) % Neut # (Auto) 6.06 (1.56-6.13) K/mm3 Lymph # (Auto) 1.33 (1.18-3.74) K/mm3 Hart # (Auto) 0.50 H (0.24-0.36) K/mm3 Eos # (Auto) 0.06 (0.04-0.36) K/mm3 Baso # (Auto) 0.03 (0.01-0.08) K/mm3 D-Dimer, Quantitative (0.19-0.50) mg/L Sodium (136-145) mEq/L Potassium (3.5-5.1) mEq/L Chloride (98-107) mEq/L Carbon Dioxide (21-32) mEq/L Anion Gap (5-15) BUN (7-18) mg/dL Creatinine (0.55-1.02) mg/dL Est Cr Clr Drug Dosing mL/min Estimated GFR (MDRD) (>60) mL/min BUN/Creatinine Ratio (14-18) Glucose (70-99) mg/dL POC Glucose (70-99) mg/dL Calcium (8.5-10.1) mg/dL Total Bilirubin (0.2-1.0) mg/dL AST (15-37) U/L ALT (14-59) U/L Alkaline Phosphatase (46-116) U/L Troponin I (0.00-0.056) ng/mL C-Reactive Protein (<1.0) mg/dL Total Protein (6.4-8.2) g/dl Albumin (3.4-5.0) g/dl Globulin gm/dL Albumin/Globulin Ratio (1-2) Lipase (73-393) U/L HCG, Qual Negative (NEGATIVE) SARS-CoV-2 RNA (FRANCIS) Negative (NEGATIVE) 03/25/21 03/25/21 Range/Units 05:50 08:15 WBC (3.98-10.04) K/mm3 RBC (3.98-5.22) M/mm3 Hgb (11.2-15.7) gm/dl Hct (34.1-44.9) % MCV (79.4-94.8) fl MCH (25.6-32.2) pg MCHC (32.2-35.5) g/dl RDW Std Deviation (36.4-46.3) fL Plt Count (182-369) K/mm3 MPV (9.4-12.3) fl Neut % (Auto) (34.0-71.1) % Lymph % (Auto) (19.3-51.7) % Hart % (Auto) (4.7-12.5) % Eos % (Auto) (0.7-5.8) Baso % (Auto) (0.1-1.2) % Neut # (Auto) (1.56-6.13) K/mm3 Lymph # (Auto) (1.18-3.74) K/mm3 Hart # (Auto) (0.24-0.36) K/mm3 Eos # (Auto) (0.04-0.36) K/mm3 Baso # (Auto) (0.01-0.08) K/mm3 D-Dimer, Quantitative (0.19-0.50) mg/L Sodium 143 (136-145) mEq/L Potassium 3.9 (3.5-5.1) mEq/L Chloride 111 H (98-107) mEq/L Carbon Dioxide 18 L (21-32) mEq/L Anion Gap 17.9 H (5-15) BUN 15 (7-18) mg/dL Creatinine 0.8 (0.55-1.02) mg/dL Est Cr Clr Drug Dosing 109.38 mL/min Estimated GFR (MDRD) > 60 (>60) mL/min BUN/Creatinine Ratio 18.8 H (14-18) Glucose 48 L* (70-99) mg/dL POC Glucose 102 H (70-99) mg/dL Calcium 7.5 L (8.5-10.1) mg/dL Total Bilirubin 0.9 (0.2-1.0) mg/dL AST 253 H (15-37) U/L ALT 644 H (14-59) U/L Alkaline Phosphatase 264 H (46-116) U/L Troponin I (0.00-0.056) ng/mL C-Reactive Protein (<1.0) mg/dL Total Protein 5.3 L (6.4-8.2) g/dl Albumin 2.4 L (3.4-5.0) g/dl Globulin 2.9 gm/dL Albumin/Globulin Ratio 0.8 L (1-2) Lipase 1132 H (73-393) U/L HCG, Qual (NEGATIVE) SARS-CoV-2 RNA (FRANCIS) (NEGATIVE) Med Orders - Current: Current Medications Dextrose/Water (50% Dextrose In Water 50 Ml Syringe) 50 ml IVPUSH ASDIRECTED PRN PRN Reason: Blood Glucose Docusate Sodium (Docusate Sodium 100 Mg Cap) 100 mg PO BID PRN PRN Reason: Constipation Heparin Sodium (Porcine) (Heparin Sodium 5,000 Units/Ml Vial) 5,000 units SUBCUT Q12H [facility] Last Admin: 03/24/21 18:07 Dose: 5,000 units Documented by: Sodium Chloride (Normal Saline) 1,000 mls @ 250 mls/hr IV ASDIRECTED [facility] Last Admin: 03/25/21 02:05 Dose: 250 mls/hr Documented by: Morphine Sulfate (Morphine 2 Mg/Ml Syringe) 2 mg IVPUSH Q2H PRN PRN Reason: Pain (severe 7-10) Stop: 03/25/21 14:37 Ondansetron HCl (Ondansetron 4 Mg/2 Ml Sdv) 4 mg IV Q4H PRN PRN Reason: Nausea/Vomiting Sodium Chloride (Sodium Chloride 0.9% 10 Ml Syringe) 10 ml FLUSH ASDIRECTED PRN PRN Reason: Keep Vein Open Last Admin: 03/24/21 09:32 Dose: 10 ml Documented by: Sodium Chloride (Sodium Chloride 0.9% 10 Ml Syringe) 10 ml FLUSH ONETIME PRN PRN Reason: IV FLUSH Last Admin: 03/24/21 11:02 Dose: 10 ml Documented by: Sodium Chloride (Sodium Chloride 0.9% 10 Ml Syringe) 10 ml FLUSH ASDIRECTED PRN PRN Reason: Keep Vein Open Discontinued Medications Dextrose/Water (50% Dextrose In Water 50 Ml Syringe) Confirm Administered Dose 50 ml .ROUTE .STK-MED ONE Stop: 03/25/21 07:37 Last Admin: 03/25/21 07:38 Dose: 50 ml Documented by: Hydromorphone HCl (Hydromorphone 0.5 Mg/0.5 Ml Syringe) 0.5 mg IVPUSH ONETIME ONE Stop: 03/24/21 09:04 Last Admin: 03/24/21 15:36 Dose: Not Given Documented by: Sodium Chloride (Normal Saline) 1,000 mls @ 1,000 mls/hr IV .BOLUS SIMIN Last Admin: 03/24/21 09:32 Dose: 1,000 mls/hr Documented by: Sodium Chloride (Normal Saline) 100 mls @ 75 mls/hr IV ASDIRECTED [facility] Last Admin: 03/24/21 11:02 Dose: 75 mls/hr Documented by: Sodium Chloride (Normal Saline) 1,000 mls @ 250 mls/hr IV ASDIRECTED [facility] Last Admin: 03/24/21 14:17 Dose: 250 mls/hr Documented by: Iopamidol (Iopamidol 755 Mg/Ml 100 Ml Bottle) 100 ml IVPUSH ONETIME ONE Stop: 03/24/21 10:44 Last Admin: 03/24/21 11:02 Dose: 100 ml Documented by: Ondansetron HCl (Ondansetron 4 Mg/2 Ml Sdv) 4 mg IVPUSH ONETIME ONE Stop: 03/24/21 09:01 Last Admin: 03/24/21 09:31 Dose: 4 mg Documented by: - Exam Quality Assessment: DVT Prophylaxis. No: Supplemental Oxygen General: Alert, No Acute Distress HEENT: Scleral Icterus Lungs: Clear to Auscultation, Normal Respiratory Effort Cardiovascular: Regular Rate, Regular Rhythm GI/Abdominal Exam: Normal Bowel Sounds, Soft, Non-Tender Extremities: Normal Inspection Skin: Warm, Dry - Patient Data Lab Results Last 24 hrs: Laboratory Results - last 24 hr 03/24/21 03/24/21 03/24/21 Range/Units 09:17 09:17 09:17 WBC 10.72 H (3.98-10.04) K/mm3 RBC 5.18 (3.98-5.22) M/mm3 Hgb 13.2 D (11.2-15.7) gm/dl Hct 41.3 (34.1-44.9) % MCV 79.7 (79.4-94.8) fl MCH 25.5 L (25.6-32.2) pg MCHC 32.0 L (32.2-35.5) g/dl RDW Std Deviation 45.4 (36.4-46.3) fL Plt Count 284 (182-369) K/mm3 MPV 11.5 (9.4-12.3) fl Neut % (Auto) 84.2 H (34.0-71.1) % Lymph % (Auto) 7.3 L (19.3-51.7) % Hart % (Auto) 7.1 (4.7-12.5) % Eos % (Auto) 0.7 (0.7-5.8) Baso % (Auto) 0.3 (0.1-1.2) % Neut # (Auto) 9.04 H (1.56-6.13) K/mm3 Lymph # (Auto) 0.78 L (1.18-3.74) K/mm3 Hart # (Auto) 0.76 H (0.24-0.36) K/mm3 Eos # (Auto) 0.07 (0.04-0.36) K/mm3 Baso # (Auto) 0.03 (0.01-0.08) K/mm3 D-Dimer, Quantitative 3.98 H (0.19-0.50) mg/L Sodium 144 (136-145) mEq/L Potassium 3.8 (3.5-5.1) mEq/L Chloride 106 (98-107) mEq/L Carbon Dioxide 25 (21-32) mEq/L Anion Gap 16.8 H (5-15) BUN 12 (7-18) mg/dL Creatinine 0.8 (0.55-1.02) mg/dL Est Cr Clr Drug Dosing 109.38 mL/min Estimated GFR (MDRD) > 60 (>60) mL/min BUN/Creatinine Ratio 15.0 (14-18) Glucose 88 (70-99) mg/dL POC Glucose (70-99) mg/dL Calcium 8.6 (8.5-10.1) mg/dL Total Bilirubin 4.9 H (0.2-1.0) mg/dL AST 820 H (15-37) U/L ALT 1183 H (14-59) U/L Alkaline Phosphatase 352 H (46-116) U/L Troponin I < 0.017 (0.00-0.056) ng/mL C-Reactive Protein 3.4 H* (<1.0) mg/dL Total Protein 7.0 (6.4-8.2) g/dl Albumin 3.0 L (3.4-5.0) g/dl Globulin 4.0 gm/dL Albumin/Globulin Ratio 0.8 L (1-2) Lipase 49798 H (73-393) U/L HCG, Qual (NEGATIVE) SARS-CoV-2 RNA (FRANCIS) (NEGATIVE) 03/24/21 03/24/21 03/25/21 Range/Units 09:17 13:47 05:50 WBC 8.01 (3.98-10.04) K/mm3 RBC 4.25 (3.98-5.22) M/mm3 Hgb 10.8 L D (11.2-15.7) gm/dl Hct 35.1 (34.1-44.9) % MCV 82.6 (79.4-94.8) fl MCH 25.4 L (25.6-32.2) pg MCHC 30.8 L (32.2-35.5) g/dl RDW Std Deviation 47.3 H (36.4-46.3) fL Plt Count 213 (182-369) K/mm3 MPV 11.2 (9.4-12.3) fl Neut % (Auto) 75.7 H (34.0-71.1) % Lymph % (Auto) 16.6 L (19.3-51.7) % Hart % (Auto) 6.2 (4.7-12.5) % Eos % (Auto) 0.7 (0.7-5.8) Baso % (Auto) 0.4 (0.1-1.2) % Neut # (Auto) 6.06 (1.56-6.13) K/mm3 Lymph # (Auto) 1.33 (1.18-3.74) K/mm3 Hart # (Auto) 0.50 H (0.24-0.36) K/mm3 Eos # (Auto) 0.06 (0.04-0.36) K/mm3 Baso # (Auto) 0.03 (0.01-0.08) K/mm3 D-Dimer, Quantitative (0.19-0.50) mg/L Sodium (136-145) mEq/L Potassium (3.5-5.1) mEq/L Chloride (98-107) mEq/L Carbon Dioxide (21-32) mEq/L Anion Gap (5-15) BUN (7-18) mg/dL Creatinine (0.55-1.02) mg/dL Est Cr Clr Drug Dosing mL/min Estimated GFR (MDRD) (>60) mL/min BUN/Creatinine Ratio (14-18) Glucose (70-99) mg/dL POC Glucose (70-99) mg/dL Calcium (8.5-10.1) mg/dL Total Bilirubin (0.2-1.0) mg/dL AST (15-37) U/L ALT (14-59) U/L Alkaline Phosphatase (46-116) U/L Troponin I (0.00-0.056) ng/mL C-Reactive Protein (<1.0) mg/dL Total Protein (6.4-8.2) g/dl Albumin (3.4-5.0) g/dl Globulin gm/dL Albumin/Globulin Ratio (1-2) Lipase (73-393) U/L HCG, Qual Negative (NEGATIVE) SARS-CoV-2 RNA (FRANCIS) Negative (NEGATIVE) 03/25/21 03/25/21 Range/Units 05:50 08:15 WBC (3.98-10.04) K/mm3 RBC (3.98-5.22) M/mm3 Hgb (11.2-15.7) gm/dl Hct (34.1-44.9) % MCV (79.4-94.8) fl MCH (25.6-32.2) pg MCHC (32.2-35.5) g/dl RDW Std Deviation (36.4-46.3) fL Plt Count (182-369) K/mm3 MPV (9.4-12.3) fl Neut % (Auto) (34.0-71.1) % Lymph % (Auto) (19.3-51.7) % Hart % (Auto) (4.7-12.5) % Eos % (Auto) (0.7-5.8) Baso % (Auto) (0.1-1.2) % Neut # (Auto) (1.56-6.13) K/mm3 Lymph # (Auto) (1.18-3.74) K/mm3 Hart # (Auto) (0.24-0.36) K/mm3 Eos # (Auto) (0.04-0.36) K/mm3 Baso # (Auto) (0.01-0.08) K/mm3 D-Dimer, Quantitative (0.19-0.50) mg/L Sodium 143 (136-145) mEq/L Potassium 3.9 (3.5-5.1) mEq/L Chloride 111 H (98-107) mEq/L Carbon Dioxide 18 L (21-32) mEq/L Anion Gap 17.9 H (5-15) BUN 15 (7-18) mg/dL Creatinine 0.8 (0.55-1.02) mg/dL Est Cr Clr Drug Dosing 109.38 mL/min Estimated GFR (MDRD) > 60 (>60) mL/min BUN/Creatinine Ratio 18.8 H (14-18) Glucose 48 L* (70-99) mg/dL POC Glucose 102 H (70-99) mg/dL Calcium 7.5 L (8.5-10.1) mg/dL Total Bilirubin 0.9 (0.2-1.0) mg/dL AST 253 H (15-37) U/L ALT 644 H (14-59) U/L Alkaline Phosphatase 264 H (46-116) U/L Troponin I (0.00-0.056) ng/mL C-Reactive Protein (<1.0) mg/dL Total Protein 5.3 L (6.4-8.2) g/dl Albumin 2.4 L (3.4-5.0) g/dl Globulin 2.9 gm/dL Albumin/Globulin Ratio 0.8 L (1-2) Lipase 1132 H (73-393) U/L HCG, Qual (NEGATIVE) SARS-CoV-2 RNA (FRANCIS) (NEGATIVE) Result Diagrams: 03/25/21 05:50 03/25/21 05:50 Sepsis Event Note - Evaluation Sepsis Screening Result: No Definite Risk - Focused Exam Vital Signs: Vital Signs Temp Temp Pulse Pulse Resp BP BP 03/25/21 08:20 97.9 F 86 16 106/60 03/24/21 23:48 98.1 F 73 14 101/63 03/24/21 21:04 97.5 F 72 14 102/58 L Pulse Ox 03/25/21 08:20 95 03/24/21 23:48 95 03/24/21 21:04 95 - Problem List Review Problem List Initiated/Reviewed/Updated: Yes - My Orders Last 24 Hours: My Active Orders 03/24/21 14:32 Patient Status [ADT] Routine Oxygen Therapy [RC] PRN Up ad Elo [RC] ASDIRECTED VTE/DVT Education [RC] PER UNIT ROUTINE Vital Signs [RC] Q4H Consult to Physician [CONS] Routine Resuscitation Status Routine 03/24/21 14:33 Intake and Output [RC] QSHIFT 03/24/21 14:35 Notify Provider Consults [RC] ASDIRECTED 03/24/21 14:36 VTE/DVT Education [RC] PER UNIT ROUTINE Docusate Sodium [Colace] 100 mg PO BID PRN Morphine 2 mg IVPUSH Q2H PRN Ondansetron [Zofran] 4 mg IV Q4H PRN Sodium Chloride 0.9% [Saline Flush] 10 ml FLUSH ASDIRECTED PRN Saline Lock Insert [OM.PC] Routine 03/24/21 Dinner Nothing per Oral Now Diet [DIET] 03/24/21 18:00 Heparin Sodium 5,000 units SUBCUT Q12H Sodium Chloride 0.9% [Normal Saline] 1,000 ml IV ASDIRECTED 03/25/21 07:40 Dextrose 50% in Water 50 ml IVPUSH ASDIRECTED PRN - Plan Plan:: 25-year-old female who presented to the emergency department with abdominal pain, nausea/vomiting and found to have gallstone pancreatitis, with the likelihood of recent passage of small stone. 1. Gallstone pancreatitis. 2. Mixed elevated liver enzyme pattern. 3. 2 weeks . Plan: Decrease rate of crystalloid down to 150 cc an hour. Remain n.p.o. Planning for elective cholecystectomy at 1 PM today. Pain control and antiemetics as necessary. Recheck chemistries in the morning. Significant improvement in liver enzymes and lipase this morning. Advance diet as per the surgery team postoperatively. CODE STATUS: Full code. DVT prophylaxis with heparin subcu.
--- NOTE | 2021-03-25 09:49 | PCM.PREANE ---
Preanesthetic Assessment - Procedure Proposed Procedure: Laparoscopic Cholecystectomy - Anesthesia/Transfusion/Family Hx Anesthesia History: Prior Anesthesia Without Reaction Family History of Anesthesia Reaction: No Transfusion History: No Prior Transfusion(s) Intubation History: Unknown - Review of Systems General: No Symptoms (2 weeks: post /currently nursing.) Pulmonary: No Symptoms Cardiovascular: No Symptoms Gastrointestinal: No Symptoms (GERD- "way better!"/Gallstone pancreatitis: stone has passed.), Abdominal Pain (04/21), Constipation Neurological: No Symptoms Other: Reports: None, Liver Problems (Elevated liver enzymes.) - Physical Assessment NPO Status Date: 03/24/21 NPO Status Time: 07:00 Vital Signs: Last Vital Signs Temp 36.6 C 03/25/21 08:20 Pulse 86 03/25/21 08:20 Resp 16 03/25/21 08:20 BP 106/60 03/25/21 08:20 Pulse Ox 95 03/25/21 08:20 Height: 1.73 m Weight: 105.687 kg ASA Class: 3 Mental Status: Alert & Oriented x3 Airway Class: Mallampati = 2 Dentition: Reports: Normal Dentition, Caries Thyro-Mental Finger Breadths: 3 Mouth Opening Finger Breadths: 3 ROM/Head Extension: Full Lungs: Clear to Auscultation, Normal Respiratory Effort Cardiovascular: Regular Rate, Regular Rhythm, No Murmurs - Lab Values: Laboratory Last Values WBC 8.01 K/mm3 (3.98-10.04) 03/25/21 05:50 RBC 4.25 M/mm3 (3.98-5.22) 03/25/21 05:50 Hgb 10.8 gm/dl (11.2-15.7) L D 03/25/21 05:50 Hct 35.1 % (34.1-44.9) 03/25/21 05:50 MCV 82.6 fl (79.4-94.8) 03/25/21 05:50 MCH 25.4 pg (25.6-32.2) L 03/25/21 05:50 MCHC 30.8 g/dl (32.2-35.5) L 03/25/21 05:50 RDW Std Deviation 47.3 fL (36.4-46.3) H 03/25/21 05:50 Plt Count 213 K/mm3 (182-369) 03/25/21 05:50 MPV 11.2 fl (9.4-12.3) 03/25/21 05:50 Neut % (Auto) 75.7 % (34.0-71.1) H 03/25/21 05:50 Lymph % (Auto) 16.6 % (19.3-51.7) L 03/25/21 05:50 [place] % (Auto) 6.2 % (4.7-12.5) 03/25/21 05:50 Eos % (Auto) 0.7 (0.7-5.8) 03/25/21 05:50 Baso % (Auto) 0.4 % (0.1-1.2) 03/25/21 05:50 Neut # (Auto) 6.06 K/mm3 (1.56-6.13) 03/25/21 05:50 Lymph # (Auto) 1.33 K/mm3 (1.18-3.74) 03/25/21 05:50 [place] # (Auto) 0.50 K/mm3 (0.24-0.36) H 03/25/21 05:50 Eos # (Auto) 0.06 K/mm3 (0.04-0.36) 03/25/21 05:50 Baso # (Auto) 0.03 K/mm3 (0.01-0.08) 03/25/21 05:50 D-Dimer, Quantitative 3.98 mg/L (0.19-0.50) H 03/24/21 09:17 Sodium 143 mEq/L (136-145) 03/25/21 05:50 Potassium 3.9 mEq/L (3.5-5.1) 03/25/21 05:50 Chloride 111 mEq/L (98-107) H 03/25/21 05:50 Carbon Dioxide 18 mEq/L (21-32) L 03/25/21 05:50 Anion Gap 17.9 (5-15) H 03/25/21 05:50 BUN 15 mg/dL (7-18) 03/25/21 05:50 Creatinine 0.8 mg/dL (0.55-1.02) 03/25/21 05:50 Est Cr Clr Drug Dosing 109.38 mL/min 03/25/21 05:50 Estimated GFR (MDRD) > 60 mL/min (>60) 03/25/21 05:50 BUN/Creatinine Ratio 18.8 (14-18) H 03/25/21 05:50 Glucose 48 mg/dL (70-99) L* 03/25/21 05:50 POC Glucose 102 mg/dL (70-99) H 03/25/21 08:15 Calcium 7.5 mg/dL (8.5-10.1) L 03/25/21 05:50 Total Bilirubin 0.9 mg/dL (0.2-1.0) 03/25/21 05:50 AST 253 U/L (15-37) H 03/25/21 05:50 ALT 644 U/L (14-59) H 03/25/21 05:50 Alkaline Phosphatase 264 U/L (46-116) H 03/25/21 05:50 Troponin I < 0.017 ng/mL (0.00-0.056) 03/24/21 09:17 C-Reactive Protein 3.4 mg/dL (<1.0) H* 03/24/21 09:17 Total Protein 5.3 g/dl (6.4-8.2) L 03/25/21 05:50 Albumin 2.4 g/dl (3.4-5.0) L 03/25/21 05:50 Globulin 2.9 gm/dL 03/25/21 05:50 Albumin/Globulin Ratio 0.8 (1-2) L 03/25/21 05:50 Lipase 1132 U/L (73-393) H 03/25/21 05:50 HCG, Qual Negative (NEGATIVE) 03/24/21 09:17 SARS-CoV-2 RNA (FRANCIS) Negative (NEGATIVE) 03/24/21 13:47 All labs reviewed and noted and within acceptable ranges to proceed with scheduled procedure. - Imaging/EKG Impressions: 03/24/2021: CXR: slight density within right lung base. - Allergies Allergies/Adverse Reactions: Allergies Allergy/AdvReac Type Severity Reaction Status Date / Time No Known Allergies Allergy Verified 03/24/21 08:53 - Anesthesia Plan Pre-Op Medication Ordered: None - Acknowledgements Anesthesia Type Planned: General Anesthesia Pt an Appropriate Candidate for the Planned Anesthesia: Yes Alternatives and Risks of Anesthesia Discussed w Pt/Guardian: Yes Pt/Guardian Understands and Agrees with Anesthesia Plan: Yes PreAnesthesia Questionnaire - Past Health History Medical/Surgical History: Denies Medical/Surgical History Gastrointestinal History: Reports: GERD, Pancreatitis Genitourinary History: Reports: Renal Calculus [employer] History: Reports: - Past Surgical History Other GI Surgeries/Procedures: gallstones passed today, possible pancreatitis admisssion today Musculoskeletal Surgical History: Reports: Other (See Below) Other Musculoskeletal Surgeries/Procedures:: knee surgery 2014 - SUBSTANCE USE Tobacco Use Status *Q: Never Tobacco User Tobacco Use Within Last Twelve Months: No Second Hand Smoke Exposure: No Days Per Week of Alcohol Use: 0 Recreational Drug Use History: No - HOME MEDS Home Medications: Home Meds No122/Iron/Folic Acid [ Multi Tablet] 1 each PO DAILY 04/02/19 [History] Docusate Sodium [Colace] 100 mg PO BID PRN cap 03/10/21 [Rx] - CURRENT (IN HOUSE) MEDS Current Meds: Current Medications Dextrose/Water (50% Dextrose In Water 50 Ml Syringe) 50 ml IVPUSH ASDIRECTED PRN PRN Reason: Blood Glucose Docusate Sodium (Docusate Sodium 100 Mg Cap) 100 mg PO BID PRN PRN Reason: Constipation Heparin Sodium (Porcine) (Heparin Sodium 5,000 Units/Ml Vial) 5,000 units SUBCUT Q12H [facility] Last Admin: 03/25/21 08:39 Dose: Not Given Documented by: Sodium Chloride (Normal Saline) 1,000 mls @ 250 mls/hr IV ASDIRECTED [facility] Last Admin: 03/25/21 02:05 Dose: 250 mls/hr Documented by: Morphine Sulfate (Morphine 2 Mg/Ml Syringe) 2 mg IVPUSH Q2H PRN PRN Reason: Pain (severe 7-10) Stop: 03/25/21 14:37 Ondansetron HCl (Ondansetron 4 Mg/2 Ml Sdv) 4 mg IV Q4H PRN PRN Reason: Nausea/Vomiting Sodium Chloride (Sodium Chloride 0.9% 10 Ml Syringe) 10 ml FLUSH ASDIRECTED PRN PRN Reason: Keep Vein Open Last Admin: 03/24/21 09:32 Dose: 10 ml Documented by: Sodium Chloride (Sodium Chloride 0.9% 10 Ml Syringe) 10 ml FLUSH ONETIME PRN PRN Reason: IV FLUSH Last Admin: 03/24/21 11:02 Dose: 10 ml Documented by: Sodium Chloride (Sodium Chloride 0.9% 10 Ml Syringe) 10 ml FLUSH ASDIRECTED PRN PRN Reason: Keep Vein Open Discontinued Medications Dextrose/Water (50% Dextrose In Water 50 Ml Syringe) Confirm Administered Dose 50 ml .ROUTE .STK-MED ONE Stop: 03/25/21 07:37 Last Admin: 03/25/21 07:38 Dose: 50 ml Documented by: Hydromorphone HCl (Hydromorphone 0.5 Mg/0.5 Ml Syringe) 0.5 mg IVPUSH ONETIME ONE Stop: 03/24/21 09:04 Last Admin: 03/24/21 15:36 Dose: Not Given Documented by: Sodium Chloride (Normal Saline) 1,000 mls @ 1,000 mls/hr IV .BOLUS SIMIN Last Admin: 03/24/21 09:32 Dose: 1,000 mls/hr Documented by: Sodium Chloride (Normal Saline) 100 mls @ 75 mls/hr IV ASDIRECTED [facility] Last Admin: 03/24/21 11:02 Dose: 75 mls/hr Documented by: Sodium Chloride (Normal Saline) 1,000 mls @ 250 mls/hr IV ASDIRECTED [facility] Last Admin: 03/24/21 14:17 Dose: 250 mls/hr Documented by: Iopamidol (Iopamidol 755 Mg/Ml 100 Ml Bottle) 100 ml IVPUSH ONETIME ONE Stop: 03/24/21 10:44 Last Admin: 03/24/21 11:02 Dose: 100 ml Documented by: Ondansetron HCl (Ondansetron 4 Mg/2 Ml Sdv) 4 mg IVPUSH ONETIME ONE Stop: 03/24/21 09:01 Last Admin: 03/24/21 09:31 Dose: 4 mg Documented by:
[2021-03-25] MEDS ORDERED: Lactated Ringers 1,000 ML ONE (10:57)
[2021-03-25] MEDS ORDERED: Lidocaine 1%/Sod Bicarbonate in NS 8.4% 1 ML Syringe IDERM PRN (10:57)
[2021-03-25] MEDS ORDERED: Sodium Chloride 0.9% 10 ML Syringe FLUSH PRN (10:57)
[2021-03-25] MEDS ORDERED: Lactated Ringers 1,000 ML IV SCH (11:00)
[2021-03-25] MEDS ORDERED: Bupivacaine 0.5% 30 ML SDV ONE ×2 (11:31→14:09)
[2021-03-25] MEDS ORDERED: Propofol 200 MG/20 ML SDV ONE (12:01)
[2021-03-25] MEDS ORDERED: Ondansetron 4 MG/2 ML SDV ONE (12:02)
[2021-03-25] MEDS ORDERED: Lidocaine 1% 4 ML ONE (12:02)
[2021-03-25] MEDS ORDERED: Midazolam 1 MG/ML 2 ML SDV ONE (12:02)
[2021-03-25] MEDS ORDERED: fentaNYL 250 MCG/5 ML SDV ONE (12:02)
[2021-03-25] MEDS ORDERED: Dexamethasone 4 MG/ML 5 ML MDV ONE (12:03)
[2021-03-25] MEDS ORDERED: 50% Dextrose in Water 50 ML Syringe IVPUSH STA (12:08)
[2021-03-25] MEDS: Sodium Chloride 0.9% 10 ML Syringe FLUSH PRN (12:13)
[2021-03-25] MEDS ORDERED: D5 1/2 NS w/ 20 mEq/L KCl 1,000 ML IV SCH (12:15)
[2021-03-25] MEDS ORDERED: Dextrose 5%-Lactated Ringers 1,000 ML ONE ×2 (13:10→17:02)
--- NOTE | 2021-03-25 13:20 | PCM.SN.2 ---
- Free Text/Narrative Note: Patient's labs - LFTs- are trending down. Epigastric pain has resolved. We will proceed with cholecystectomy.
[2021-03-25] MEDS ORDERED: Succinylcholine/Sod PF 100 MG/5 ML SYRINGE IV ONE (13:24)
[2021-03-25] MEDS ORDERED: ceFAZolin 1 GM Vial ONE (13:55)
[2021-03-25] MEDS ORDERED: fentaNYL 100 MCG/2 ML SDV IVPUSH PRN (14:37)
[2021-03-25] MEDS ORDERED: HYDROmorphone 0.5 MG/0.5 ML Syringe IVPUSH PRN (14:37)
[2021-03-25] MEDS ORDERED: HYDROmorphone 0.5 MG/0.5 ML Syringe ONE (15:09)
--- NOTE | 2021-03-25 15:36 | PCM.SN.2 ---
- Free Text/Narrative Note: Patient underwent laparoscopic cholecystectomy. Procedure was uncomplicated. Patient can be discharged from surgical standpoint however, she has been having asymptomatic hypoglycemia so she may need monitoring on the floor for now.
[2021-03-25] MEDS ORDERED: Ketorolac 30 MG/ML SDV ONE (15:37)
--- NOTE | 2021-03-25 15:43 | PCM.POSTAN ---
POST ANESTHESIA ASSESSMENT - MENTAL STATUS Mental Status: Alert, Somnolent - VITAL SIGNS Vital Signs: Last Vital Signs Temp 98.4 F 03/25/21 15:28 Pulse 86 03/25/21 08:20 Resp 11 L 03/25/21 15:28 BP 112/61 03/25/21 15:28 Pulse Ox 98 03/25/21 15:28 - RESPIRATORY Respiratory Status: Respiratory Rate WNL, Airway Patent, O2 Saturation Stable, Supplemental Oxygen - CARDIOVASCULAR CV Status: Pulse Rate WNL, Blood Pressure Stable - GASTROINTESTINAL GI Status: No Symptoms - PAIN Pain Score: 0 - POST OP HYDRATION Hydration Status: Adequate & Stable
--- NOTE | 2021-03-25 16:28 | OR ---
DATE OF OPERATION: 03/25/2021 SURGEON: David Aguilera MD PREOPERATIVE DIAGNOSIS: Gallstone pancreatitis. POSTOPERATIVE DIAGNOSIS: Cholelithiasis. OPERATION PERFORMED: Laparoscopic cholecystectomy. ESTIMATED BLOOD LOSS: 20 mL. ANESTHESIA: General endotracheal plus local consisting 1% lidocaine. COMPLICATIONS: None. INDICATIONS AND CONSENT: Ms. Rosales is a 25-year-old female who is 2 weeks . The patient was diagnosed with gallstone pancreatitis. She was admitted, observed, and her abdominal pain resolved as well as LFTs were coming down. Therefore, I recommended to proceed with an early cholecystectomy for this mild pancreatitis condition. We discussed with the patient risks, benefits, and alternatives and an informed consent was obtained. DESCRIPTION OF PROCEDURE: The patient was taken to the operating room, placed in supine position, padded appropriately. SCDs were placed. Preop antibiotics were given. The abdomen was prepped and draped in the usual sterile fashion. Formal time-out was performed prior to the start of the procedure. Then we began the procedure by infiltrating the infraumbilical site. An incision was made here. A Paty was used to grasp the umbilical stalk, elevating it, and a Veress needle was placed into the abdomen and the abdomen was insufflated to 15 mmHg. A 12 mm trocar under laparoscopic guidance was placed in the infraumbilical site. On cursory exam of the abdomen, there were no abnormalities. There was some clear fluid in the pelvis. Once this was done, then three additional 5 mm trocars were placed, one in the subxiphoid and two in the right subcostal. The patient was placed in slight reverse Trendelenburg with left side down. There were adhesions of the omentum to the gallbladder and these were taken down. There was significant amount of scarring in the infundibulum, but the gallbladder was dissected and Calot triangle was dissected slowly and meticulously using cautery and blunt dissection until the critical window of safety was reached. The cystic duct and cystic artery were clipped with three clips and transected such that two clips remained in situ and then the gallbladder was removed from the gallbladder fossa with electrosurgery. Any bleeding was controlled with cautery. Once this was done, the area was irrigated with 1 L of warm saline and suctioned out. There was no spillage of gallbladder contents. The gallbladder was placed in an EndoCatch bag and removed through the infraumbilical incision. The infraumbilical incision was closed in two layers. The fascia was closed with 0 Vicryl stitches using Jonn-Yuriy device and the skin with 4-0 Monocryl and the rest of the 5 mm trocar site was closed with 4-0 Monocryl at the skin level. Dermabond was then applied. Procedure was concluded. Counts were correct x2. The patient was extubated and taken to the PACU for recovery. Patient to be allowed to return to the floor for observation tonight and possibly discharged home tomorrow. MMODAL /[id number]
[2021-03-25] MEDS ORDERED: Dextrose 5%-Lactated Ringers 1,000 ML IV SCH (17:15)
[2021-03-25] MEDS: Acetaminophen/oxyCODONE 325-5 MG Tab PO PRN (18:55)
[2021-03-25] MEDS ORDERED: Sodium Chloride 0.9% 10 ML Syringe FLUSH SCH (21:00)
[2021-03-26] MEDS: Acetaminophen/oxyCODONE 325-5 MG Tab PO PRN ×2 (04:37→09:12)
--- NOTE | 2021-03-26 07:30 | PCM.PN ---
- General Info Date of Service: 03/26/21 Admission Dx/Problem (Free Text): Admission Diagnosis/Problem Admission Diagnosis/Problem Pancreatitis Subjective Update: has renate-incisional soreness but otherwise doing well. tolerating diet without nausea or vomiting. Functional Status: Reports: Pain Controlled, Tolerating Diet, Ambulating, Urinat ing - Review of Systems General: Reports: No Symptoms HEENT: Reports: No Symptoms Pulmonary: Reports: No Symptoms Cardiovascular: Reports: No Symptoms Gastrointestinal: Reports: Abdominal Pain (around the incision) Genitourinary: Reports: No Symptoms Musculoskeletal: Reports: No Symptoms - Patient Data Vitals - Most Recent: Last Vital Signs Temp 97.9 F 03/26/21 04:33 Pulse 56 L 03/26/21 04:33 Resp 14 03/26/21 04:33 BP 115/58 L 03/26/21 04:33 Pulse Ox 97 03/26/21 04:33 Weight - Most Recent: 104.281 kg I&O - Last 24 Hours: Intake & Output 03/25/21 03/26/21 03/26/21 22:59 06:59 14:59 Intake Total 800 600 Output Total 1800 1600 Balance -1000 -1000 Lab Results Last 24 Hours: Laboratory Results - last 24 hr 03/25/21 03/25/21 03/25/21 Range/Units 05:50 08:15 12:05 WBC (3.98-10.04) K/mm3 RBC (3.98-5.22) M/mm3 Hgb (11.2-15.7) gm/dl Hct (34.1-44.9) % MCV (79.4-94.8) fl MCH (25.6-32.2) pg MCHC (32.2-35.5) g/dl RDW Std Deviation (36.4-46.3) fL Plt Count (182-369) K/mm3 MPV (9.4-12.3) fl Neut % (Auto) (34.0-71.1) % Lymph % (Auto) (19.3-51.7) % Piute % (Auto) (4.7-12.5) % Eos % (Auto) (0.7-5.8) Baso % (Auto) (0.1-1.2) % Neut # (Auto) (1.56-6.13) K/mm3 Lymph # (Auto) (1.18-3.74) K/mm3 [place] # (Auto) (0.24-0.36) K/mm3 Eos # (Auto) (0.04-0.36) K/mm3 Baso # (Auto) (0.01-0.08) K/mm3 Sodium 143 (136-145) mEq/L Potassium 3.9 (3.5-5.1) mEq/L Chloride 111 H (98-107) mEq/L Carbon Dioxide 18 L (21-32) mEq/L Anion Gap 17.9 H (5-15) BUN 15 (7-18) mg/dL Creatinine 0.8 (0.55-1.02) mg/dL Est Cr Clr Drug Dosing 109.38 mL/min Estimated GFR (MDRD) > 60 (>60) mL/min BUN/Creatinine Ratio 18.8 H (14-18) Glucose 48 L* (70-99) mg/dL POC Glucose 102 H 42 L* (70-99) mg/dL Calcium 7.5 L (8.5-10.1) mg/dL Total Bilirubin 0.9 (0.2-1.0) mg/dL AST 253 H (15-37) U/L ALT 644 H (14-59) U/L Alkaline Phosphatase 264 H (46-116) U/L Total Protein 5.3 L (6.4-8.2) g/dl Albumin 2.4 L (3.4-5.0) g/dl Globulin 2.9 gm/dL Albumin/Globulin Ratio 0.8 L (1-2) Lipase 1132 H (73-393) U/L 03/25/21 03/25/21 03/25/21 Range/Units 13:06 15:31 19:50 WBC (3.98-10.04) K/mm3 RBC (3.98-5.22) M/mm3 Hgb (11.2-15.7) gm/dl Hct (34.1-44.9) % MCV (79.4-94.8) fl MCH (25.6-32.2) pg MCHC (32.2-35.5) g/dl RDW Std Deviation (36.4-46.3) fL Plt Count (182-369) K/mm3 MPV (9.4-12.3) fl Neut % (Auto) (34.0-71.1) % Lymph % (Auto) (19.3-51.7) % Piute % (Auto) (4.7-12.5) % Eos % (Auto) (0.7-5.8) Baso % (Auto) (0.1-1.2) % Neut # (Auto) (1.56-6.13) K/mm3 Lymph # (Auto) (1.18-3.74) K/mm3 [place] # (Auto) (0.24-0.36) K/mm3 Eos # (Auto) (0.04-0.36) K/mm3 Baso # (Auto) (0.01-0.08) K/mm3 Sodium (136-145) mEq/L Potassium (3.5-5.1) mEq/L Chloride (98-107) mEq/L Carbon Dioxide (21-32) mEq/L Anion Gap (5-15) BUN (7-18) mg/dL Creatinine (0.55-1.02) mg/dL Est Cr Clr Drug Dosing mL/min Estimated GFR (MDRD) (>60) mL/min BUN/Creatinine Ratio (14-18) Glucose (70-99) mg/dL POC Glucose 66 L 112 H 147 H (70-99) mg/dL Calcium (8.5-10.1) mg/dL Total Bilirubin (0.2-1.0) mg/dL AST (15-37) U/L ALT (14-59) U/L Alkaline Phosphatase (46-116) U/L Total Protein (6.4-8.2) g/dl Albumin (3.4-5.0) g/dl Globulin gm/dL Albumin/Globulin Ratio (1-2) Lipase (73-393) U/L 03/26/21 03/26/21 03/26/21 Range/Units 00:41 04:35 05:46 WBC 9.53 (3.98-10.04) K/mm3 RBC 4.45 (3.98-5.22) M/mm3 Hgb 11.1 L (11.2-15.7) gm/dl Hct 36.4 (34.1-44.9) % MCV 81.8 (79.4-94.8) fl MCH 24.9 L (25.6-32.2) pg MCHC 30.5 L (32.2-35.5) g/dl RDW Std Deviation 47.4 H (36.4-46.3) fL Plt Count 272 (182-369) K/mm3 MPV 11.8 (9.4-12.3) fl Neut % (Auto) 76.2 H (34.0-71.1) % Lymph % (Auto) 16.6 L (19.3-51.7) % Piute % (Auto) 6.8 (4.7-12.5) % Eos % (Auto) 0.1 L (0.7-5.8) Baso % (Auto) 0.1 (0.1-1.2) % Neut # (Auto) 7.26 H (1.56-6.13) K/mm3 Lymph # (Auto) 1.58 (1.18-3.74) K/mm3 [place] # (Auto) 0.65 H (0.24-0.36) K/mm3 Eos # (Auto) 0.01 L (0.04-0.36) K/mm3 Baso # (Auto) 0.01 (0.01-0.08) K/mm3 Sodium (136-145) mEq/L Potassium (3.5-5.1) mEq/L Chloride (98-107) mEq/L Carbon Dioxide (21-32) mEq/L Anion Gap (5-15) BUN (7-18) mg/dL Creatinine (0.55-1.02) mg/dL Est Cr Clr Drug Dosing mL/min Estimated GFR (MDRD) (>60) mL/min BUN/Creatinine Ratio (14-18) Glucose (70-99) mg/dL POC Glucose 186 H 97 (70-99) mg/dL Calcium (8.5-10.1) mg/dL Total Bilirubin (0.2-1.0) mg/dL AST (15-37) U/L ALT (14-59) U/L Alkaline Phosphatase (46-116) U/L Total Protein (6.4-8.2) g/dl Albumin (3.4-5.0) g/dl Globulin gm/dL Albumin/Globulin Ratio (1-2) Lipase (73-393) U/L Med Orders - Current: Current Medications Dextrose/Water (50% Dextrose In Water 50 Ml Syringe) 50 ml IVPUSH ASDIRECTED PRN PRN Reason: Blood Glucose Last Admin: 03/25/21 12:08 Dose: 50 ml Documented by: Docusate Sodium (Docusate Sodium 100 Mg Cap) 100 mg PO BID PRN PRN Reason: Constipation Heparin Sodium (Porcine) (Heparin Sodium 5,000 Units/Ml Vial) 5,000 units SUBCUT Q12H SIMIN Lactated Ringer's (Ringers, Lactated) 1,000 mls @ 125 mls/hr IV ASDIRECTED SIMIN Last Admin: 03/25/21 11:07 Dose: 125 mls/hr Documented by: Potassium Chloride/Dextrose/Sod Cl (D5 1/2 Ns W/ 20 Meq/L Kcl) 1,000 mls @ 100 mls/hr IV ASDIRECTED SIMIN Dextrose/Lactated Ringer's (Dextrose 5%-Lactated Ringers) 1,000 mls @ 100 mls/hr IV ASDIRECTED SIMIN Lidocaine/Sodium Bicarbonate (Lidocaine 1%/Sod Bicarbonate In Ns 8.4% 1 Ml Syringe) 0.25 ml IDERM ONETIME PRN PRN Reason: Prior to IV Start Ondansetron HCl (Ondansetron 4 Mg/2 Ml Sdv) 4 mg IV Q4H PRN PRN Reason: Nausea/Vomiting Oxycodone/Acetaminophen (Acetaminophen/Oxycodone 325-5 Mg Tab) 1 tab PO Q4H PRN PRN Reason: Pain (moderate 4-6) Last Admin: 03/26/21 04:37 Dose: 1 tab Documented by: Polyethylene Glycol (Polyethylene Glycol 3350 Powder 17 Gm Packet) 17 gm PO DAILY SIMIN Sodium Chloride (Sodium Chloride 0.9% 10 Ml Syringe) 10 ml FLUSH ASDIRECTED PRN PRN Reason: Keep Vein Open Last Admin: 03/25/21 12:13 Dose: 10 ml Documented by: Sodium Chloride (Sodium Chloride 0.9% 10 Ml Syringe) 10 ml FLUSH ONETIME PRN PRN Reason: IV FLUSH Last Admin: 03/24/21 11:02 Dose: 10 ml Documented by: Sodium Chloride (Sodium Chloride 0.9% 10 Ml Syringe) 10 ml FLUSH ASDIRECTED PRN PRN Reason: Keep Vein Open Sodium Chloride (Sodium Chloride 0.9% 10 Ml Syringe) 10 ml FLUSH 0900,2100 [facility] Last Admin: 03/25/21 22:36 Dose: Not Given Documented by: Sodium Chloride (Sodium Chloride 0.9% 10 Ml Syringe) 10 ml FLUSH ASDIRECTED PRN PRN Reason: Keep Vein Open Discontinued Medications Bupivacaine HCl (Bupivacaine 0.5% 30 Ml Sdv) Confirm Administered Dose 30 ml .ROUTE .STK-MED ONE Stop: 03/25/21 11:32 Bupivacaine HCl (Bupivacaine 0.5% 30 Ml Sdv) Confirm Administered Dose 30 ml .ROUTE .STK-MED ONE Stop: 03/25/21 14:10 Cefazolin Sodium (Cefazolin 1 Gm Vial) Confirm Administered Dose 2 gm .ROUTE .STK-MED ONE Stop: 03/25/21 13:56 Dexamethasone (Dexamethasone 4 Mg/Ml 5 Ml Mdv) Confirm Administered Dose 20 mg .ROUTE .STK-MED ONE Stop: 03/25/21 12:04 Dextrose/Water (50% Dextrose In Water 50 Ml Syringe) Confirm Administered Dose 50 ml .ROUTE .STK-MED ONE Stop: 03/25/21 07:37 Last Admin: 03/25/21 07:38 Dose: 50 ml Documented by: Dextrose/Water (50% Dextrose In Water 50 Ml Syringe) 50 ml IVPUSH ASDIRECTED STA Stop: 03/25/21 12:09 Last Admin: 03/25/21 12:33 Dose: Not Given Documented by: Fentanyl (Fentanyl 250 Mcg/5 Ml Sdv) Confirm Administered Dose 250 mcg .ROUTE .STK-MED ONE Stop: 03/25/21 12:03 Fentanyl (Fentanyl 100 Mcg/2 Ml Sdv) 100 mcg IVPUSH Q5M PRN PRN Reason: Pain Stop: 03/25/21 18:00 Last Admin: 03/25/21 15:50 Dose: 100 mcg Documented by: Heparin Sodium (Porcine) (Heparin Sodium 5,000 Units/Ml Vial) 5,000 units SUBCUT Q12H [facility] Last Admin: 03/25/21 22:33 Dose: 5,000 units Documented by: Hydromorphone HCl (Hydromorphone 0.5 Mg/0.5 Ml Syringe) 0.5 mg IVPUSH ONETIME ONE Stop: 03/24/21 09:04 Last Admin: 03/24/21 15:36 Dose: Not Given Documented by: Hydromorphone HCl (Hydromorphone 0.5 Mg/0.5 Ml Syringe) 0.5 mg IVPUSH Q10M PRN PRN Reason: Pain (severe 7-10) Stop: 03/25/21 18:00 Hydromorphone HCl (Hydromorphone 0.5 Mg/0.5 Ml Syringe) Confirm Administered Dose 0.5 mg .ROUTE .STK-MED ONE Stop: 03/25/21 15:10 Sodium Chloride (Normal Saline) 1,000 mls @ 1,000 mls/hr IV .BOLUS SIMNI Last Admin: 03/24/21 09:32 Dose: 1,000 mls/hr Documented by: Sodium Chloride (Normal Saline) 100 mls @ 75 mls/hr IV ASDIRECTED SIMIN Last Admin: 03/24/21 11:02 Dose: 75 mls/hr Documented by: Sodium Chloride (Normal Saline) 1,000 mls @ 250 mls/hr IV ASDIRECTED SIMIN Last Admin: 03/24/21 14:17 Dose: 250 mls/hr Documented by: Sodium Chloride (Normal Saline) 1,000 mls @ 250 mls/hr IV ASDIRECTED SIMIN Last Admin: 03/25/21 02:05 Dose: 250 mls/hr Documented by: Lactated Ringer's (Ringers, Lactated) Confirm Administered Dose 1,000 mls @ as directed .ROUTE .STK-MED ONE Stop: 03/25/21 10:58 Last Admin: 03/25/21 11:55 Dose: Not Given Documented by: Lidocaine HCl (Xylocaine-Mpf 1%) Confirm Administered Dose 4 mls @ as directed .ROUTE .STK-MED ONE Stop: 03/25/21 12:03 Dextrose/Lactated Ringer's (Dextrose 5%-Lactated Ringers) Confirm Administered Dose 1,000 mls @ as directed .ROUTE .STK-MED ONE Stop: 03/25/21 13:11 Last Admin: 03/25/21 17:16 Dose: 50 mls/hr Documented by: Dextrose/Lactated Ringer's (Dextrose 5%-Lactated Ringers) Confirm Administered Dose 1,000 mls @ as directed .ROUTE .STK-MED ONE Stop: 03/25/21 17:03 Last Admin: 03/25/21 18:19 Dose: Not Given Documented by: Iopamidol (Iopamidol 755 Mg/Ml 100 Ml Bottle) 100 ml IVPUSH ONETIME ONE Stop: 03/24/21 10:44 Last Admin: 03/24/21 11:02 Dose: 100 ml Documented by: Ketorolac Tromethamine (Ketorolac 30 Mg/Ml Sdv) Confirm Administered Dose 30 mg .ROUTE .STK-MED ONE Stop: 03/25/21 15:38 Midazolam HCl (Midazolam 1 Mg/Ml 2 Ml Sdv) Confirm Administered Dose 2 mg .ROUTE .STK-MED ONE Stop: 03/25/21 12:03 Morphine Sulfate (Morphine 2 Mg/Ml Syringe) 2 mg IVPUSH Q2H PRN PRN Reason: Pain (severe 7-10) Stop: 03/25/21 14:37 Ondansetron HCl (Ondansetron 4 Mg/2 Ml Sdv) 4 mg IVPUSH ONETIME ONE Stop: 03/24/21 09:01 Last Admin: 03/24/21 09:31 Dose: 4 mg Documented by: Ondansetron HCl (Ondansetron 4 Mg/2 Ml Sdv) Confirm Administered Dose 8 mg .ROUTE .STK-MED ONE Stop: 03/25/21 12:03 Propofol (Propofol 200 Mg/20 Ml Sdv) Confirm Administered Dose 200 mg .ROUTE .STK-MED ONE Stop: 03/25/21 12:02 Vecuronium [place] (Vecuronium 10 Mg Vial) Confirm Administered Dose 10 mg .ROUTE .STK-MED ONE Stop: 03/25/21 12:02 - Exam General: Alert, Oriented, Cooperative Cardiovascular: Regular Rate, Regular Rhythm, No Murmurs GI/Abdominal Exam: Soft, No Distention, Tender (around the incisions) - Patient Data Lab Results Last 24 hrs: Laboratory Results - last 24 hr 03/25/21 03/25/21 03/25/21 Range/Units 05:50 08:15 12:05 WBC (3.98-10.04) K/mm3 RBC (3.98-5.22) M/mm3 Hgb (11.2-15.7) gm/dl Hct (34.1-44.9) % MCV (79.4-94.8) fl MCH (25.6-32.2) pg MCHC (32.2-35.5) g/dl RDW Std Deviation (36.4-46.3) fL Plt Count (182-369) K/mm3 MPV (9.4-12.3) fl Neut % (Auto) (34.0-71.1) % Lymph % (Auto) (19.3-51.7) % Piute % (Auto) (4.7-12.5) % Eos % (Auto) (0.7-5.8) Baso % (Auto) (0.1-1.2) % Neut # (Auto) (1.56-6.13) K/mm3 Lymph # (Auto) (1.18-3.74) K/mm3 Pi[place] # (Auto) (0.24-0.36) K/mm3 Eos # (Auto) (0.04-0.36) K/mm3 Baso # (Auto) (0.01-0.08) K/mm3 Sodium 143 (136-145) mEq/L Potassium 3.9 (3.5-5.1) mEq/L Chloride 111 H (98-107) mEq/L Carbon Dioxide 18 L (21-32) mEq/L Anion Gap 17.9 H (5-15) BUN 15 (7-18) mg/dL Creatinine 0.8 (0.55-1.02) mg/dL Est Cr Clr Drug Dosing 109.38 mL/min Estimated GFR (MDRD) > 60 (>60) mL/min BUN/Creatinine Ratio 18.8 H (14-18) Glucose 48 L* (70-99) mg/dL POC Glucose 102 H 42 L* (70-99) mg/dL Calcium 7.5 L (8.5-10.1) mg/dL Total Bilirubin 0.9 (0.2-1.0) mg/dL AST 253 H (15-37) U/L ALT 644 H (14-59) U/L Alkaline Phosphatase 264 H (46-116) U/L Total Protein 5.3 L (6.4-8.2) g/dl Albumin 2.4 L (3.4-5.0) g/dl Globulin 2.9 gm/dL Albumin/Globulin Ratio 0.8 L (1-2) Lipase 1132 H (73-393) U/L 03/25/21 03/25/21 03/25/21 Range/Units 13:06 15:31 19:50 WBC (3.98-10.04) K/mm3 RBC (3.98-5.22) M/mm3 Hgb (11.2-15.7) gm/dl Hct (34.1-44.9) % MCV (79.4-94.8) fl MCH (25.6-32.2) pg MCHC (32.2-35.5) g/dl RDW Std Deviation (36.4-46.3) fL Plt Count (182-369) K/mm3 MPV (9.4-12.3) fl Neut % (Auto) (34.0-71.1) % Lymph % (Auto) (19.3-51.7) % Piute % (Auto) (4.7-12.5) % Eos % (Auto) (0.7-5.8) Baso % (Auto) (0.1-1.2) % Neut # (Auto) (1.56-6.13) K/mm3 Lymph # (Auto) (1.18-3.74) K/mm3 [place] # (Auto) (0.24-0.36) K/mm3 Eos # (Auto) (0.04-0.36) K/mm3 Baso # (Auto) (0.01-0.08) K/mm3 Sodium (136-145) mEq/L Potassium (3.5-5.1) mEq/L Chloride (98-107) mEq/L Carbon Dioxide (21-32) mEq/L Anion Gap (5-15) BUN (7-18) mg/dL Creatinine (0.55-1.02) mg/dL Est Cr Clr Drug Dosing mL/min Estimated GFR (MDRD) (>60) mL/min BUN/Creatinine Ratio (14-18) Glucose (70-99) mg/dL POC Glucose 66 L 112 H 147 H (70-99) mg/dL Calcium (8.5-10.1) mg/dL Total Bilirubin (0.2-1.0) mg/dL AST (15-37) U/L ALT (14-59) U/L Alkaline Phosphatase (46-116) U/L Total Protein (6.4-8.2) g/dl Albumin (3.4-5.0) g/dl Globulin gm/dL Albumin/Globulin Ratio (1-2) Lipase (73-393) U/L 03/26/21 03/26/21 03/26/21 Range/Units 00:41 04:35 05:46 WBC 9.53 (3.98-10.04) K/mm3 RBC 4.45 (3.98-5.22) M/mm3 Hgb 11.1 L (11.2-15.7) gm/dl Hct 36.4 (34.1-44.9) % MCV 81.8 (79.4-94.8) fl MCH 24.9 L (25.6-32.2) pg MCHC 30.5 L (32.2-35.5) g/dl RDW Std Deviation 47.4 H (36.4-46.3) fL Plt Count 272 (182-369) K/mm3 MPV 11.8 (9.4-12.3) fl Neut % (Auto) 76.2 H (34.0-71.1) % Lymph % (Auto) 16.6 L (19.3-51.7) % Piute % (Auto) 6.8 (4.7-12.5) % Eos % (Auto) 0.1 L (0.7-5.8) Baso % (Auto) 0.1 (0.1-1.2) % Neut # (Auto) 7.26 H (1.56-6.13) K/mm3 Lymph # (Auto) 1.58 (1.18-3.74) K/mm3 Piute # (Auto) 0.65 H (0.24-0.36) K/mm3 Eos # (Auto) 0.01 L (0.04-0.36) K/mm3 Baso # (Auto) 0.01 (0.01-0.08) K/mm3 Sodium (136-145) mEq/L Potassium (3.5-5.1) mEq/L Chloride (98-107) mEq/L Carbon Dioxide (21-32) mEq/L Anion Gap (5-15) BUN (7-18) mg/dL Creatinine (0.55-1.02) mg/dL Est Cr Clr Drug Dosing mL/min Estimated GFR (MDRD) (>60) mL/min BUN/Creatinine Ratio (14-18) Glucose (70-99) mg/dL POC Glucose 186 H 97 (70-99) mg/dL Calcium (8.5-10.1) mg/dL Total Bilirubin (0.2-1.0) mg/dL AST (15-37) U/L ALT (14-59) U/L Alkaline Phosphatase (46-116) U/L Total Protein (6.4-8.2) g/dl Albumin (3.4-5.0) g/dl Globulin gm/dL Albumin/Globulin Ratio (1-2) Lipase (73-393) U/L Result Diagrams: 03/26/21 05:46 03/25/21 05:50 Sepsis Event Note - Evaluation Sepsis Screening Result: No Definite Risk - Focused Exam Vital Signs: Vital Signs Temp Pulse Resp BP Pulse Ox 03/26/21 04:33 97.9 F 56 L 14 115/58 L 97 03/26/21 00:39 98.1 F 64 15 129/78 96 03/25/21 19:45 98.6 F 68 14 117/70 95 - Problem List Review Problem List Initiated/Reviewed/Updated: No - My Orders Last 24 Hours: My Active Orders 03/25/21 17:15 Dextrose 5%-Lactated Ringers 1,000 ml IV ASDIRECTED 03/25/21 17:22 Acetaminophen/oxyCODONE [Percocet 325-5 MG] 1 tab PO Q4H PRN 03/26/21 09:00 polyethylene glycoL 3350 [MiraLAX] 17 gm PO DAILY 03/26/21 Dinner Regular Diet [DIET] - Assessment Assessment:: POD1 s/p lap janay for gallstone pancreatitis. doing well - Plan Plan:: - continue reg diet - ok to dc home. Follow up with me in clinic in 2 weeks - limit weight lifting to < 20 lb for 2 weeks. - percocet 5mg q6h x 3 days. Discussed this plan with the patient. She verbalized understanding. Questions answered.
[2021-03-26] MEDS ORDERED: Heparin Sodium 5,000 Units/ML Vial SUBCUT SCH (08:00)
--- NOTE | 2021-03-26 08:55 | PCM.DCSUM1 ---
Discharge Summary - Hospital Course HPI Initial Comments: Patient is a 25-year-old female with a past medical history as listed below who presents to the emergency department with a chief complaint of abdominal pain with nausea and vomiting. 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 Delivery was un eventful. Delivery was vaginal. She was in her usual state of health up until Wednesday night when eating dinner, she became acutely nauseated and vomited within 10 minutes of consumption of food. She has had intermittent anterior epigastric and right upper quadrant pain since. Sometimes rated a 9 or 10 out of 10 on pain scale. She claims that she had some chills on Wednesday night but did not take an objective temperature. She has been unable to eat anything. She had another episode of vomiting last night. No black or blood noted. No change in bowel habits. She had never felt any of the symptoms before. Today pain became so exquisite that she came to the emergency department for evaluation. She thought it was due to gastroesophageal reflux as this has been a problem for her especially during . She had otherwise denied any lightheadedness/dizziness, chest pain, chest pressure, pleurisy, skin changes or at least noticeable skin changes, neurologic changes or musculoskeletal changes. Upon evaluation in the emergency department work-up was notable for a mixed elevated liver enzyme pattern of moderate severity. She was noted to be mildly jaundiced. Imaging was suggested of multiple small gallstones increasing the possibility of gallstone pancreatitis. Her lipase was greater than 20,000. Initial ultrasound imaging was showing a dilated common bile duct to 7 mm. We were able to get an MRCP during her ER course. It was noted that her common bile duct by the time of that study had decreased to a caliber of 3 mm. There was no common bile duct or cystic duct stone noted. Mild inflammatory changes around the gallbladder. There was inflammation around the head of the pancreas. Patient was referred to the internal medicine service with a surgical consult f or elective cholecystectomy in the near future for management of gallstone pancreatitis. By the time that the medicine service was called she had already received 1 L of crystalloid. She has since been placed on 250 cc an hour. The patient denies being in pain currently. A 14 point review of systems was reviewed with the patient entirely and only pertinent for the above information. Diagnosis: Stroke: No - Discharge Data Discharge Date: 03/26/21 (Admit date: 03/24/2021) Discharge Disposition: Home, Self-Care 01 Condition: Good - Referral to Home Health Primary Care Physician: Kayley Ramos MD - Discharge Diagnosis/Problem(s) (1) Transaminitis SNOMED Code(s): 802101909, 498526297 ICD Code: R74.01 - ELEVATION OF LEVELS OF LIVER TRANSAMINASE LEVELS Status: Acute Priority: High (2) Status post cholecystectomy SNOMED Code(s): 504598834, 08167129, 487617945 ICD Code: Z90.49 - ACQUIRED ABSENCE OF OTHER SPECIFIED PARTS OF DIGESTIVE TRACT Status: Acute Priority: High (3) Acute gallstone pancreatitis SNOMED Code(s): 195173772 ICD Code: K85.10 - BILIARY ACUTE PANCREATITIS WITHOUT NECROSIS OR INFECTION Status: Resolved Priority: High (4) Abdominal pain SNOMED Code(s): 86377990 ICD Code: R10.9 - UNSPECIFIED ABDOMINAL PAIN Status: Resolved Priority: High Qualifiers: Abdominal location: unspecified location Qualified Code(s): R10.9 - Unspecified abdominal pain (5) Cholelithiasis SNOMED Code(s): 984977836 ICD Code: K80.20 - CALCULUS OF GALLBLADDER W/O CHOLECYSTITIS W/O OBSTRUCTION Status: Resolved Priority: High Qualifiers: Cholelithiasis location: gallbladder and bile duct Cholecystitis presence: with cholecystitis Cholecystitis acuity: acute Biliary obstruction: with biliary obstruction Qualified Code(s): K80.63 - Calculus of gallbladder and bile duct with acute cholecystitis with obstruction - Patient Summary/Data Consults: Consultations 03/24/21 14:32 Consult to Physician [CONS] Routine Labs Pending at D/C: None Recommended Follow-up Testing/Procedures: Patient instructed to follow-up with primary care provider within 5 to 7 weeks of discharge, sooner if needed. * Discharged on as needed Percocet for severe pain and instructed to take [id number] Tylenol for lesser pain. * Warned about potential constipation instructed to take OTC laxative/stool softeners if needed. * All home medications were continued. * 20 pound lifting restriction for 2 weeks Follow-up with Dr. Aguilera, general surgeon, within 2 weeks Advised to follow-up with obstetrics as prior. Hospital Course: This is a 25-year-old female who presented to our ED on 03/24/2021 with chest pain, abdominal pain, and shortness of breath after being sent over from the walk-in clinic. She also endorsed nausea and vomiting. She is 2 weeks after delivering a healthy child via vaginal delivery. She is currently breast-feeding. In the ED she was noted to have moderate transamin itis and a lipase of 20,001 1 5. Ultrasound was obtained which showed multiple gallstones within the gallbladder and a prominent common bile duct of 7 mm. Bilirubin was also elevated at 4.9. MRCP was obtained and showed fluid around the pancreas, gallstones, however her bile duct had decreased to around 3 mm. Pain was noted to improve and it was felt she passed a gallstone. She was made n.p.o. and given IV fluids. Liver enzymes did trend downward. Lipase returned to normal at 196. She did have a episode of hypoglycemia and was given D50 and then started on D5 NS. Dr. Aguilera, general surgeon, did see the patient and ultimately decision was made to perform laparoscopic cholecystectomy. This was performed on 03/25/2021 and the patient tolerated the procedure very well. Diet was advanced without complication and patient reported her pain was overall quite well controlled. Dr. Gordon did prescribe Percocet 325-5 mg with 1 tab p.o. every 6 hours as needed. She was instructed to take these for the next 3 days for severe pain. She was instructed to take Tylenol as needed for lesser pain. She was warned that this may lead to constipation and that she should not drive or operate machinery while on the medication. She was also warned that this may pass her breast milk. She was advised to discuss this with her ring stamper if she has concerns. She was placed on a 20 pound lifting restriction for 2 weeks. She was instructed to follow-up with Dr. Oren Espinoza in the next 2 weeks as well. She was instructed to follow-up with obstetrics as per before. She discharged home today. All other home medications were continued. She was told to return to the emergency room or contact her primary care provider should symptoms return or worsen. We did discuss concerning symptoms such as nausea, vomiting, worsening sudden abdominal pain, fever, drainage from incision sites, or worsening redness to the incision sites. - Patient Instructions Diet: Usual Diet as Tolerated Activity: As Tolerated, No Lifting Over 20 Pounds (For 2 weeks), Rest and Relax Today Driving: Do Not Drive (While on narcotics ) Showering/Bathing: May Shower Wound/Incision Care: Keep Operative Site/Wound Site Clean and Dry Notify Provider of: Fever, Increased Pain, Swelling and Redness, Drainage, Nausea and/or Vomiting Other/Special Instructions: With primary care provider within 5 to 7 days of discharge, sooner if needed. Follow-up with Dr. Aguilera, general surgeon, as scheduled for 2-week postop follow-up. Follow-up with OB as per prior. You were prescribed a medication for pain called Percocet. This can make you sleepy and cause constipation. It will impair your ability to drive and operate machinery. You may take [id number] laxatives/stool softeners as needed for constipation. This medication can be passed to breastmilk. Take this medication as prescribed and you should discontinue after 3 days. Monitor your surgical sites. Contact primary care provider or Dr. Right gupta if you notice any redness, significant pain, or drainage. Should symptoms return or worsen contact primary care provider or return the emergency room. - Discharge Plan *PRESCRIPTION DRUG MONITORING PROGRAM REVIEWED*: Yes *COPY OF PRESCRIPTION DRUG MONITORING REPORT IN PATIENT TASIA: Not Applicable Prescriptions/Med Rec: Acetaminophen/oxyCODONE [Percocet 325-5 MG] 1 tab PO Q6H PRN #12 tablet PRN Reason: Pain (Severe 7-10) Home Medications: Home Meds No122/Iron/Folic Acid [ Multi Tablet] 1 each PO DAILY 04/02/19 [History] Docusate Sodium [Colace] 100 mg PO BID PRN cap 03/10/21 [Rx] Acetaminophen/oxyCODONE [Percocet 325-5 MG] 1 tab PO Q6H PRN #12 tablet 03/26/21 [Rx] Oxygen Therapy Mode: Room Air Patient Handouts: Minimally Invasive Cholecystectomy, Care After, [id number] Forms: ED Department Discharge Referrals: Kayley Ramos MD [Primary Care Provider] - David Aguilera MD [Physician] - (2 weeks for post op check) - Discharge Summary/Plan Comment DC Time >30 min.: No Total # of Minutes for Discharge Time: 25 - General Info Date of Service: 03/26/21 Admission Dx/Problem (Free Text: Admission Diagnosis/Problem Admission Diagnosis/Problem Pancreatitis Functional Status: Reports: Pain Controlled, Tolerating Diet, Ambulating, Urinating. Denies: New Symptoms - Review of Systems General: Reports: No Symptoms. Denies: Fever, Weakness, Fatigue, Malaise, Chills HEENT: Reports: No Symptoms. Denies: Headaches, Sore Throat Pulmonary: Reports: No Symptoms. Denies: Shortness of Breath, Cough, Sputum Cardiovascular: Reports: No Symptoms. Denies: Chest Pain, Palpitations, Dyspnea on Exertion, Edema Gastrointestinal: Reports: Abdominal Pain (Pain around incision sites which is minimal. No generalized abdominal pain.). Denies: Constipation, Decreased Appetite, Diarrhea, Nausea, Vomiting Genitourinary: Reports: No Symptoms. Denies: Pain Musculoskeletal: Reports: No Symptoms Skin: Reports: No Symptoms. Denies: Cyanosis Neurological: Reports: No Symptoms. Denies: Confusion, Dizziness, Headache, Numbness, Tingling, Difficulty Walking, Weakness, Gait Disturbance Psychiatric: Reports: No Symptoms - Patient Data Vitals - Most Recent: Last Vital Signs Temp 98.2 F 03/26/21 08:00 Pulse 71 03/26/21 08:00 Resp 16 03/26/21 08:00 BP 131/83 03/26/21 08:00 Pulse Ox 99 03/26/21 08:00 Weight - Most Recent: 229 lb 14.4 oz I&O - Last 24 hours: Intake & Output 03/25/21 03/26/21 03/26/21 22:59 06:59 14:59 Intake Total 800 600 Output Total 1800 1600 Balance -1000 -1000 Lab Results - Last 24 hrs: Laboratory Results - last 24 hr 03/25/21 03/25/21 03/25/21 Range/Units 12:05 13:06 15:31 WBC (3.98-10.04) K/mm3 RBC (3.98-5.22) M/mm3 Hgb (11.2-15.7) gm/dl Hct (34.1-44.9) % MCV (79.4-94.8) fl MCH (25.6-32.2) pg MCHC (32.2-35.5) g/dl RDW Std Deviation (36.4-46.3) fL Plt Count (182-369) K/mm3 MPV (9.4-12.3) fl Neut % (Auto) (34.0-71.1) % Lymph % (Auto) (19.3-51.7) % [place] % (Auto) (4.7-12.5) % Eos % (Auto) (0.7-5.8) Baso % (Auto) (0.1-1.2) % Neut # (Auto) (1.56-6.13) K/mm3 Lymph # (Auto) (1.18-3.74) K/mm3 [place] # (Auto) (0.24-0.36) K/mm3 Eos # (Auto) (0.04-0.36) K/mm3 Baso # (Auto) (0.01-0.08) K/mm3 Sodium (136-145) mEq/L Potassium (3.5-5.1) mEq/L Chloride (98-107) mEq/L Carbon Dioxide (21-32) mEq/L Anion Gap (5-15) BUN (7-18) mg/dL Creatinine (0.55-1.02) mg/dL Est Cr Clr Drug Dosing mL/min Estimated GFR (MDRD) (>60) mL/min BUN/Creatinine Ratio (14-18) Glucose (70-99) mg/dL POC Glucose 42 L* 66 L 112 H (70-99) mg/dL Calcium (8.5-10.1) mg/dL Total Bilirubin (0.2-1.0) mg/dL Direct Bilirubin (0.0-0.2) mg/dl Indirect Bilirubin AST (15-37) U/L ALT (14-59) U/L Alkaline Phosphatase (46-116) U/L Total Protein (6.4-8.2) g/dl Albumin (3.4-5.0) g/dl Globulin gm/dL Albumin/Globulin Ratio (1-2) Lipase (73-393) U/L 03/25/21 03/26/21 03/26/21 Range/Units 19:50 00:41 04:35 WBC (3.98-10.04) K/mm3 RBC (3.98-5.22) M/mm3 Hgb (11.2-15.7) gm/dl Hct (34.1-44.9) % MCV (79.4-94.8) fl MCH (25.6-32.2) pg MCHC (32.2-35.5) g/dl RDW Std Deviation (36.4-46.3) fL Plt Count (182-369) K/mm3 MPV (9.4-12.3) fl Neut % (Auto) (34.0-71.1) % Lymph % (Auto) (19.3-51.7) % [place] % (Auto) (4.7-12.5) % Eos % (Auto) (0.7-5.8) Baso % (Auto) (0.1-1.2) % Neut # (Auto) (1.56-6.13) K/mm3 Lymph # (Auto) (1.18-3.74) K/mm3 [place] # (Auto) (0.24-0.36) K/mm3 Eos # (Auto) (0.04-0.36) K/mm3 Baso # (Auto) (0.01-0.08) K/mm3 Sodium (136-145) mEq/L Potassium (3.5-5.1) mEq/L Chloride (98-107) mEq/L Carbon Dioxide (21-32) mEq/L Anion Gap (5-15) BUN (7-18) mg/dL Creatinine (0.55-1.02) mg/dL Est Cr Clr Drug Dosing mL/min Estimated GFR (MDRD) (>60) mL/min BUN/Creatinine Ratio (14-18) Glucose (70-99) mg/dL POC Glucose 147 H 186 H 97 (70-99) mg/dL Calcium (8.5-10.1) mg/dL Total Bilirubin (0.2-1.0) mg/dL Direct Bilirubin (0.0-0.2) mg/dl Indirect Bilirubin AST (15-37) U/L ALT (14-59) U/L Alkaline Phosphatase (46-116) U/L Total Protein (6.4-8.2) g/dl Albumin (3.4-5.0) g/dl Globulin gm/dL Albumin/Globulin Ratio (1-2) Lipase (73-393) U/L 03/26/21 03/26/21 Range/Units 05:46 05:46 WBC 9.53 (3.98-10.04) K/mm3 RBC 4.45 (3.98-5.22) M/mm3 Hgb 11.1 L (11.2-15.7) gm/dl Hct 36.4 (34.1-44.9) % MCV 81.8 (79.4-94.8) fl MCH 24.9 L (25.6-32.2) pg MCHC 30.5 L (32.2-35.5) g/dl RDW Std Deviation 47.4 H (36.4-46.3) fL Plt Count 272 (182-369) K/mm3 MPV 11.8 (9.4-12.3) fl Neut % (Auto) 76.2 H (34.0-71.1) % Lymph % (Auto) 16.6 L (19.3-51.7) % [place] % (Auto) 6.8 (4.7-12.5) % Eos % (Auto) 0.1 L (0.7-5.8) Baso % (Auto) 0.1 (0.1-1.2) % Neut # (Auto) 7.26 H (1.56-6.13) K/mm3 Lymph # (Auto) 1.58 (1.18-3.74) K/mm3 [place] # (Auto) 0.65 H (0.24-0.36) K/mm3 Eos # (Auto) 0.01 L (0.04-0.36) K/mm3 Baso # (Auto) 0.01 (0.01-0.08) K/mm3 Sodium 143 (136-145) mEq/L Potassium 3.8 (3.5-5.1) mEq/L Chloride 108 H (98-107) mEq/L Carbon Dioxide 25 (21-32) mEq/L Anion Gap 13.8 (5-15) BUN 7 (7-18) mg/dL Creatinine 0.6 (0.55-1.02) mg/dL Est Cr Clr Drug Dosing 145.85 mL/min Estimated GFR (MDRD) > 60 (>60) mL/min BUN/Creatinine Ratio 11.7 L (14-18) Glucose 104 H (70-99) mg/dL POC Glucose (70-99) mg/dL Calcium 7.8 L (8.5-10.1) mg/dL Total Bilirubin 0.5 (0.2-1.0) mg/dL Direct Bilirubin 0.30 H (0.0-0.2) mg/dl Indirect Bilirubin 0.20 AST 74 H (15-37) U/L ALT 395 H (14-59) U/L Alkaline Phosphatase 227 H (46-116) U/L Total Protein 5.3 L (6.4-8.2) g/dl Albumin 2.4 L (3.4-5.0) g/dl Globulin 2.9 gm/dL Albumin/Globulin Ratio 0.8 L (1-2) Lipase 196 (73-393) U/L Med Orders - Current: Current Medications Dextrose/Water (50% Dextrose In Water 50 Ml Syringe) 50 ml IVPUSH ASDIRECTED PRN PRN Reason: Blood Glucose Last Admin: 03/25/21 12:08 Dose: 50 ml Documented by: Docusate Sodium (Docusate Sodium 100 Mg Cap) 100 mg PO BID PRN PRN Reason: Constipation Heparin Sodium (Porcine) (Heparin Sodium 5,000 Units/Ml Vial) 5,000 units SUBCUT Q12H [facility] Last Admin: 03/26/21 08:52 Dose: 5,000 units Documented by: Lactated Ringer's (Ringers, Lactated) 1,000 mls @ 125 mls/hr IV ASDIRECTED [facility] Last Admin: 03/25/21 11:07 Dose: 125 mls/hr Documented by: Potassium Chloride/Dextrose/Sod Cl (D5 1/2 Ns W/ 20 Meq/L Kcl) 1,000 mls @ 100 mls/hr IV ASDIRECTED SIMIN Dextrose/Lactated Ringer's (Dextrose 5%-Lactated Ringers) 1,000 mls @ 100 mls/hr IV ASDIRECTED [facility] Lidocaine/Sodium Bicarbonate (Lidocaine 1%/Sod Bicarbonate In Ns 8.4% 1 Ml Syringe) 0.25 ml IDERM ONETIME PRN PRN Reason: Prior to IV Start Ondansetron HCl (Ondansetron 4 Mg/2 Ml Sdv) 4 mg IV Q4H PRN PRN Reason: Nausea/Vomiting Oxycodone/Acetaminophen (Acetaminophen/Oxycodone 325-5 Mg Tab) 1 tab PO Q4H PRN PRN Reason: Pain (moderate 4-6) Last Admin: 03/26/21 04:37 Dose: 1 tab Documented by: Polyethylene Glycol (Polyethylene Glycol 3350 Powder 17 Gm Packet) 17 gm PO DAILY SIMIN Sodium Chloride (Sodium Chloride 0.9% 10 Ml Syringe) 10 ml FLUSH ASDIRECTED PRN PRN Reason: Keep Vein Open Last Admin: 03/25/21 12:13 Dose: 10 ml Documented by: Sodium Chloride (Sodium Chloride 0.9% 10 Ml Syringe) 10 ml FLUSH ONETIME PRN PRN Reason: IV FLUSH Last Admin: 03/24/21 11:02 Dose: 10 ml Documented by: Sodium Chloride (Sodium Chloride 0.9% 10 Ml Syringe) 10 ml FLUSH ASDIRECTED PRN PRN Reason: Keep Vein Open Sodium Chloride (Sodium Chloride 0.9% 10 Ml Syringe) 10 ml FLUSH 0900,2100 SIMIN Last Admin: 03/25/21 22:36 Dose: Not Given Documented by: Sodium Chloride (Sodium Chloride 0.9% 10 Ml Syringe) 10 ml FLUSH ASDIRECTED PRN PRN Reason: Keep Vein Open Discontinued Medications Bupivacaine HCl (Bupivacaine 0.5% 30 Ml Sdv) Confirm Administered Dose 30 ml . ROUTE .STK-MED ONE Stop: 03/25/21 11:32 Bupivacaine HCl (Bupivacaine 0.5% 30 Ml Sdv) Confirm Administered Dose 30 ml .ROUTE .STK-MED ONE Stop: 03/25/21 14:10 Cefazolin Sodium (Cefazolin 1 Gm Vial) Confirm Administered Dose 2 gm .ROUTE .STK-MED ONE Stop: 03/25/21 13:56 Dexamethasone (Dexamethasone 4 Mg/Ml 5 Ml Mdv) Confirm Administered Dose 20 mg .ROUTE .STK-MED ONE Stop: 03/25/21 12:04 Dextrose/Water (50% Dextrose In Water 50 Ml Syringe) Confirm Administered Dose 50 ml .ROUTE .STK-MED ONE Stop: 03/25/21 07:37 Last Admin: 03/25/21 07:38 Dose: 50 ml Documented by: Dextrose/Water (50% Dextrose In Water 50 Ml Syringe) 50 ml IVPUSH ASDIRECTED STA Stop: 03/25/21 12:09 Last Admin: 03/25/21 12:33 Dose: Not Given Documented by: Fentanyl (Fentanyl 250 Mcg/5 Ml Sdv) Confirm Administered Dose 250 mcg .ROUTE .STK-MED ONE Stop: 03/25/21 12:03 Fentanyl (Fentanyl 100 Mcg/2 Ml Sdv) 100 mcg IVPUSH Q5M PRN PRN Reason: Pain Stop: 03/25/21 18:00 Last Admin: 03/25/21 15:50 Dose: 100 mcg Documented by: Heparin Sodium (Porcine) (Heparin Sodium 5,000 Units/Ml Vial) 5,000 units SUBCUT Q12H [facility] Last Admin: 03/25/21 22:33 Dose: 5,000 units Documented by: Hydromorphone HCl (Hydromorphone 0.5 Mg/0.5 Ml Syringe) 0.5 mg IVPUSH ONETIME ONE Stop: 03/24/21 09:04 Last Admin: 03/24/21 15:36 Dose: Not Given Documented by: Hydromorphone HCl (Hydromorphone 0.5 Mg/0.5 Ml Syringe) 0.5 mg IVPUSH Q10M PRN PRN Reason: Pain (severe 7-10) Stop: 03/25/21 18:00 Hydromorphone HCl (Hydromorphone 0.5 Mg/0.5 Ml Syringe) Confirm Administered Dose 0.5 mg .ROUTE .STK-MED ONE Stop: 03/25/21 15:10 Sodium Chloride (Normal Saline) 1,000 mls @ 1,000 mls/hr IV .BOLUS [facility] Last Admin: 03/24/21 09:32 Dose: 1,000 mls/hr Documented by: Sodium Chloride (Normal Saline) 100 mls @ 75 mls/hr IV ASDIRECTED [facility] Last Admin: 03/24/21 11:02 Dose: 75 mls/hr Documented by: Sodium Chloride (Normal Saline) 1,000 mls @ 250 mls/hr IV ASDIRECTED [facility] Last Admin: 03/24/21 14:17 Dose: 250 mls/hr Documented by: Sodium Chloride (Normal Saline) 1,000 mls @ 250 mls/hr IV ASDIRECTED [facility] Last Admin: 03/25/21 02:05 Dose: 250 mls/hr Documented by: Lactated Ringer's (Ringers, Lactated) Confirm Administered Dose 1,000 mls @ as directed .ROUTE .STK-MED ONE Stop: 03/25/21 10:58 Last Admin: 03/25/21 11:55 Dose: Not Given Documented by: Lidocaine HCl (Xylocaine-Mpf 1%) Confirm Administered Dose 4 mls @ as directed .ROUTE .STK-MED ONE Stop: 03/25/21 12:03 Dextrose/Lactated Ringer's (Dextrose 5%-Lactated Ringers) Confirm Administered Dose 1,000 mls @ as directed .ROUTE .STK-MED ONE Stop: 03/25/21 13:11 Last Admin: 03/25/21 17:16 Dose: 50 mls/hr Documented by: Dextrose/Lactated Ringer's (Dextrose 5%-Lactated Ringers) Confirm Administered Dose 1,000 mls @ as directed .ROUTE .STK-MED ONE Stop: 03/25/21 17:03 Last Admin: 03/25/21 18:19 Dose: Not Given Documented by: Iopamidol (Iopamidol 755 Mg/Ml 100 Ml Bottle) 100 ml IVPUSH ONETIME ONE Stop: 03/24/21 10:44 Last Admin: 03/24/21 11:02 Dose: 100 ml Documented by: Ketorolac Tromethamine (Ketorolac 30 Mg/Ml Sdv) Confirm Administered Dose 30 mg .ROUTE .STK-MED ONE Stop: 03/25/21 15:38 Midazolam HCl (Midazolam 1 Mg/Ml 2 Ml Sdv) Confirm Administered Dose 2 mg .ROUTE .STK-MED ONE Stop: 03/25/21 12:03 Morphine Sulfate (Morphine 2 Mg/Ml Syringe) 2 mg IVPUSH Q2H PRN PRN Reason: Pain (severe 7-10) Stop: 03/25/21 14:37 Ondansetron HCl (Ondansetron 4 Mg/2 Ml Sdv) 4 mg IVPUSH ONETIME ONE Stop: 03/24/21 09:01 Last Admin: 03/24/21 09:31 Dose: 4 mg Documented by: Ondansetron HCl (Ondansetron 4 Mg/2 Ml Sdv) Confirm Administered Dose 8 mg .ROUTE .STK-MED ONE Stop: 03/25/21 12:03 Propofol (Propofol 200 Mg/20 Ml Sdv) Confirm Administered Dose 200 mg .ROUTE .STK-MED ONE Stop: 03/25/21 12:02 Vecuronium [place] (Vecuronium 10 Mg Vial) Confirm Administered Dose 10 mg .ROUTE .STK-MED ONE Stop: 03/25/21 12:02 - Exam Quality Assessment: Reports: DVT Prophylaxis. Denies: Supplemental Oxygen, Urine Catheter General: Reports: Alert, Oriented, Cooperative, No Acute Distress HEENT: Reports: Pupils Equal, Pupils Reactive, Mucous Membr. Moist/[place] Neck: Reports: Supple, Trachea Midline Lungs: Reports: Clear to Auscultation, Normal Respiratory Effort Cardiovascular: Reports: Regular Rate, Regular Rhythm GI/Abdominal Exam: Normal Bowel Sounds, Soft, Non-Tender, No Distention (Female) Exam: Deferred Rectal (Female) Exam: Deferred Back Exam: Reports: Normal Inspection, Full Range of Motion Extremities: Normal Inspection, Normal Range of Motion, Non-Tender, No Pedal Edema, Normal Capillary Refill Skin: Reports: Warm, Dry, Intact Wound/Incisions: Reports: Healing Well, No Drainage. Denies: Erythema Neurological: Reports: No New Focal Deficit Psy/Mental Status: Reports: Alert, Normal Affect, Normal Mood
[2021-03-26] MEDS ORDERED: Polyethylene Glycol 3350 Powder 17 GM Packet PO SCH (09:00)
--- NOTE | 2021-03-26 11:45 | PCM48HPAN ---
Post Anesthesia Note - EVALUATION WITHIN 48HRS OF ANESTHETIC Vital Signs in Normal Range: Yes Patient Participated in Evaluation: No (per RN) Respiratory Function Stable: Yes Airway Patent: Yes Cardiovascular Function Stable: Yes Hydration Status Stable: Yes Pain Control Satisfactory: Yes Nausea and Vomiting Control Satisfactory: Yes Mental Status Recovered: Yes Vital Signs: Last Vital Signs Temp 36.8 C 03/26/21 08:00 Pulse 71 03/26/21 08:00 Resp 16 03/26/21 08:00 BP 131/83 03/26/21 08:00 Pulse Ox 99 03/26/21 08:00
== END 2021-03-26 09:18 | disposition home or self-care (01) | DRG 769 ==
LOC: JD.ED 08:42 → JD.OB 14:34
PROVIDERS: ADMIT Hospitalist; ATTEND Hospitalist
PROC: 0FT44ZZ Resection of Gallbladder, Percutaneous Endoscopic Approach (ICD-10-PCS; principal; 2021-03-25)
DX: O99.63 Diseases of the digestive system complicating the puerperium (principal); K85.10 Biliary acute pancreatitis without necrosis or infection; K21.9 Gastro-esophageal reflux disease without esophagitis; Z87.442 Personal history of urinary calculi; Z20.822 Contact with and (suspected) exposure to COVID-19
CPT/HCPCS: 00790; 00813; 36415; 71045; 71045-26; 71275; 71275-26; 74181; 74181-26; 76705; 76705-26; 80048; 80053; 80076; 82947; 83690; 84484; 84703; 85025; 85379; 86140; 93005; 96374; 99222; 99232; 99239; 99285-25; A9270-GY; J0330; J0690; J1100; J1170; J1644; J1885; J2250; J2405; J2704; J3010; J3490; J7030; J7120; J7121; Q9967; U0002